=== PATIENT | female | born 1955 | race Caucasian/White ===

== ENCOUNTER 2024-01-01 13:14 | Observation (INO) ==
--- NOTE | 2024-01-01 13:18 | Emergency Department Note ---
Impression & Plan Unresponsive episode, Hyperkalemia, UTI (urinary tract infection), UGO (acute kidney injury), Overdose ED Provider Note NAME: [id number] AGE: 67 SEX: F : ARRIVES VIA: Ambulance INFORMANT: [Patient][, ] ED PROVIDER(S): [Ricardo Montaño MD] CHIEF COMPLAINT: Unresponsiveness MEDICAL DECISION MAKING: Patient presented due to concern for episode of unresponsiveness. Code stroke alert was initiated to facilitate imaging. Patient will open eyes to voice and to tactile stimuli. The patient does move all 4 extremities but weakly. No obvious focal deficits. Work with a white count of 16 with a normal H&H and platelet count. Hypercarbia noted with acidosis with VBG pH is 7.2. Initial [id number] does show a creat of 3 with a potassium of 6.2. The patient was ordered dextrose D50 and insulin duoneb and calcium. The patient was also ordered IV fluids. CT imaging shows no concerning findings in the neck. The patient does have focal moderate to severe stenosis of the distal left vert. This likely would not explain the reported left-sided symptoms. Patient does have some mild multifocal narrowing within the bilateral carotid siphons. CT of the head is negative for acute hemorrhage or infarct but there is a small age-indeterminate infarct in the left cerebellum. This may be subacute. Patient did complain of hip pain so x-ray was ordered. This is negative. The patient did have some decreased responsiveness repeat VBG and BMP ordered. The patient was ordered additional Narcan. No significant change to repeat doses ordered. I did rediscuss the patient's case with the on-call hospitalist who also did evaluate the patient. The patient did seem to have improvement with the additional Narcan the Narcan drip was to be ordered. Repeat VBG pH went from 7.22-7.21 pCO2 went from 57-60. Patient tolerating BiPAP. Patient's repeat BMP shows potassium of 4.5 creatinine went from 2.67-2.51. Urinalysis does show likelihood of infection. Patient is positive for opiates on UDS. I did have pharmacy review PDMP as well as for the [employer] system and no evidence of narcotics. Positive for methamphetamines but likely secondary to Wellbutrin use. Critical Care: I have personally spent 80 minutes of critical care time in direct management of this patient. This includes bedside care, interpretation of diagnostic studies, and testing, discussion with consultants, patient, and family members, and other require inpatient management activities. This 80 minutes is in excess of all separately billable procedures. Discussion w/ other healthcare providers: Dr. Kwon and LILLIANA Urbano PA-C inpatient medicine service Prior /Outside records reviewed: [none] Differential diagnosis: Infection, dehydration, metabolic abnormality, hypo/hyperglycemia, electrolyte imbalance, anemia, UTI, pneumonia, thyroid dysfunction among others were considered. Diagnostics, as interpreted by me: ECG: [none] Cardiac monitoring: An order was placed for continuous cardiac monitoring. The monitor shows a rate of [] with [] rhythm. [Patient was placed on pulse oximetry] Medical decision rules: [none] Imaging studies: [I informally interpreted the patient's CT head which does not show obvious ICH with formal report to follow.] I informally interpreted the patient's chest x-ray which does not show obvious pneumonia or pneumothorax HPI: I received a medical command called due to concern for strokelike symptoms prior to arrival. The patient reportedly became unresponsive but was noted to have pinpoint pupils and seem to respond with Narcan. Patient was made a stroke alert given that her symptoms are improving. BSG was in the 260s oxygen saturation 90% on room air heart rate not elevated blood pressure initially was noted to be low 80s over 30s but repeat was in the 160s. PAST MEDICAL HISTORY: [See Below] PAST SURGICAL HISTORY: Carotid stent placement SOCIAL HISTORY: smoker HOME MEDICATIONS: [See Below] ALLERGIES: [See Below] VITALS: [See Below] PHYSICAL EXAMINATION: GENERAL: NAD, non-toxic. EYE EXAM: Normal conjunctiva. PERRL, no anisocoria and EOM's grossly intact w/o pain. OROPHARYNX: Moist mucus membranes, grossly normal dentition. NECK: Trachea midline, no stridor. [Supple, no nuchal rigidity, no adenopathy, non-tender. No signs of meningismus. FROM of the neck with good chin to chest and neck extension.] LUNGS: Occasional wheezing noted. Normal chest wall mechanics. HEART: NSR, no MRG. ABDOMEN: Abdomen soft, non-tender, no masses, no rebound or guarding. BACK: No CVA TTP. SKIN: No rashes and no bruising. UPPER EXTREMITIES: Upper extremities are grossly normal. LOWER EXTREMITIES: Grossly normal, no edema. NEURO EXAM: Opens eyes to tactile stimuli, no obvious facial droop, deliberate speech noted. Weakness of all 4 extremities but grossly symmetric. 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 Past Med/Surg History Medical History (Updated 01/01/24 @ 18:04 by Ricardo Montaño MD) Hypertension HLD (hyperlipidemia) Depression Tobacco abuse Social History (Updated 01/01/24 @ 18:04 by Ricardo Montaño MD) Smoking Status: Current every day smoker Preferred Language: Danish Allergies Allergies Allergy/AdvReac Type Severity Reaction Status Date / Time No Known Allergies Allergy Unverified 01/01/24 15:25 Home Meds Home Medications Medication Instructions Recorded Confirmed amlodipine 5 mg tablet 5 mg PO QAM 01/01/24 01/01/24 aspirin 81 mg tablet,delayed 81 mg PO DAILY 01/01/24 01/01/24 release atorvastatin 20 mg tablet 20 mg PO DAILY 01/01/24 01/01/24 baclofen 10 mg tablet 10 mg PO BID 01/01/24 01/01/24 bupropion HCl 200 mg tablet,12 hr 200 mg PO BID 01/01/24 01/01/24 sustained-release cholecalciferol (vitamin D3) 125 125 mcg PO DAILY 01/01/24 01/01/24 mcg (5,000 unit) capsule clopidogrel 75 mg tablet 75 mg PO DAILY 01/01/24 01/01/24 diclofenac sodium 75 mg 75 mg PO BID 01/01/24 01/01/24 tablet,delayed release duloxetine 30 mg capsule,delayed 30 mg PO DAILY 01/01/24 01/01/24 release duloxetine 60 mg capsule,delayed 60 mg PO DAILY 01/01/24 01/01/24 release ezetimibe 10 mg tablet 10 mg PO DAILY 01/01/24 01/01/24 fluticasone propionate 50 2 spray intranasal DAILY 01/01/24 01/01/24 mcg/actuation nasal spray,suspension gabapentin 800 mg tablet 800 mg PO QID 01/01/24 01/01/24 gemfibrozil 600 mg tablet 600 mg PO BID 01/01/24 01/01/24 ipratropium 20 mcg-albuterol 100 1 puff inhalation QID PRN 01/01/24 01/01/24 mcg/actuation mist for inhalation Shortness Of Breath Or Wheezing (Combivent Respimat) lisinopril 5 mg tablet 5 mg PO DAILY 01/01/24 01/01/24 mirtazapine 15 mg tablet 15 mg PO HS 01/01/24 01/01/24 oxybutynin chloride 5 mg tablet 5 mg PO BID 01/01/24 01/01/24 pantoprazole 40 mg tablet,delayed 40 mg PO DAILY 01/01/24 01/01/24 release potassium chloride 20 mEq 20 meq PO BID 01/01/24 01/01/24 tablet,extended release(part/cryst) risperidone 2 mg tablet 2 mg PO QPM 01/01/24 01/01/24 ropinirole 0.5 mg tablet 0.5 mg PO HS 01/01/24 01/01/24 sucralfate 1 gram tablet 1 g PO QID PRN ABD DISCOMFORT 01/01/24 01/01/24 Results & Data (ED) Vital Signs Vital Signs - 24 hr 01/01/24 13:07 01/01/24 13:33 01/01/24 13:37 Temperature 35.2 C L Temperature Source Rectal Pulse Rate 81 79 82 Pulse Rate [Apical] Pulse Rate from SpO2 Sensor Respiratory Rate 22 20 Respiratory Effort / Characteristics Non-Labored Spontaneous Accessory Muscle Use Respiratory Depth Shallow Respiratory Pattern Blood Pressure 153/45 H 145/69 H Blood Pressure [Left Arm] Blood Pressure Mean 81 94 Blood Pressure Mean [Left Arm] Pulse Oximetry 94 95 Oxygen Delivery Method Nasal Cannula Nasal Cannula Oxygen Flow Rate 1 1 Fraction of Inspired Oxygen SaO2/FiO2 Ratio Sepsis Recent Fever Within 48 Hours No Sepsis New/Unexplained Change in Mental Status Yes Sepsis Action Taken by Nursing Physician Notified 01/01/24 14:00 01/01/24 14:23 01/01/24 14:23 Temperature Temperature Source Pulse Rate 78 74 Pulse Rate [Apical] 74 Pulse Rate from SpO2 Sensor Respiratory Rate 26 H 16 16 Respiratory Effort / Characteristics Non-Labored Spontaneous Non-Labored Spontaneous Respiratory Depth Normal Respiratory Pattern Regular Blood Pressure 130/98 Blood Pressure [Left Arm] Blood Pressure Mean 108 Blood Pressure Mean [Left Arm] Pulse Oximetry 99 99 99 Oxygen Delivery Method Nasal Cannula BiPAP Oxygen Flow Rate 2 Fraction of Inspired Oxygen 30 30 SaO2/FiO2 Ratio Sepsis Recent Fever Within 48 Hours Sepsis New/Unexplained Change in Mental Status Sepsis Action Taken by Nursing 01/01/24 14:30 01/01/24 15:00 01/01/24 15:26 Temperature 35.2 C L Temperature Source Pulse Rate 82 Pulse Rate [Apical] Pulse Rate from SpO2 Sensor 82 81 Respiratory Rate 15 Respiratory Effort / Characteristics Respiratory Depth Respiratory Pattern Blood Pressure 155/110 H 147/107 H Blood Pressure [Left Arm] Blood Pressure Mean 125 120 Blood Pressure Mean [Left Arm] Pulse Oximetry 100 97 100 Oxygen Delivery Method CPAP BiPAP BiPAP Oxygen Flow Rate Fraction of Inspired Oxygen 30 30 30 SaO2/FiO2 Ratio Sepsis Recent Fever Within 48 Hours Sepsis New/Unexplained Change in Mental Status Sepsis Action Taken by Nursing 01/01/24 15:30 01/01/24 16:00 01/01/24 16:15 Temperature 35.5 C L 35.7 C L Temperature Source Pulse Rate 82 82 80 Pulse Rate [Apical] Pulse Rate from SpO2 Sensor 83 81 Respiratory Rate 13 21 23 Respiratory Effort / Characteristics Respiratory Depth Normal Respiratory Pattern Regular Blood Pressure 156/94 H 119/77 Blood Pressure [Left Arm] Blood Pressure Mean 114 91 Blood Pressure Mean [Left Arm] Pulse Oximetry 100 100 97 Oxygen Delivery Method BiPAP BiPAP Oxygen Flow Rate Fraction of Inspired Oxygen 30 25 25 SaO2/FiO2 Ratio Sepsis Recent Fever Within 48 Hours Sepsis New/Unexplained Change in Mental Status Sepsis Action Taken by Nursing 01/01/24 16:15 01/01/24 16:30 01/01/24 17:00 Temperature 35.8 C L 35.9 C L 36.3 C L Temperature Source Bonner Cath ( Temp Sensing) Pulse Rate 81 88 Pulse Rate [Apical] 86 Pulse Rate from SpO2 Sensor 81 88 Respiratory Rate 12 14 15 Respiratory Effort / Characteristics Non-Labored Spontaneous Respiratory Depth Normal Respiratory Pattern Regular Blood Pressure 137/73 124/71 Blood Pressure [Left Arm] 107/73 Blood Pressure Mean 94 88 Blood Pressure Mean [Left Arm] 84 Pulse Oximetry 99 97 96 Oxygen Delivery Method BiPAP BiPAP BiPAP Oxygen Flow Rate Fraction of Inspired Oxygen 25 25 25 SaO2/FiO2 Ratio 384 Sepsis Recent Fever Within 48 Hours Sepsis New/Unexplained Change in Mental Status Sepsis Action Taken by Nursing 01/01/24 17:05 01/01/24 17:15 01/01/24 17:20 Temperature 36.5 C Temperature Source Pulse Rate 83 83 Pulse Rate [Apical] Pulse Rate from SpO2 Sensor 83 Respiratory Rate 12 Respiratory Effort / Characteristics Respiratory Depth Respiratory Pattern Blood Pressure 112/63 Blood Pressure [Left Arm] Blood Pressure Mean 79 Blood Pressure Mean [Left Arm] Pulse Oximetry 96 Oxygen Delivery Method BiPAP Oxygen Flow Rate Fraction of Inspired Oxygen 25 25 SaO2/FiO2 Ratio Sepsis Recent Fever Within 48 Hours Sepsis New/Unexplained Change in Mental Status Sepsis Action Taken by Nursing 01/01/24 17:30 01/01/24 17:45 Temperature 36.6 C 36.8 C Temperature Source Pulse Rate 84 83 Pulse Rate [Apical] Pulse Rate from SpO2 Sensor 84 83 Respiratory Rate 13 12 Respiratory Effort / Characteristics Respiratory Depth Respiratory Pattern Blood Pressure 99/70 L 108/70 Blood Pressure [Left Arm] Blood Pressure Mean 79 82 Blood Pressure Mean [Left Arm] Pulse Oximetry 96 95 Oxygen Delivery Method BiPAP Oxygen Flow Rate Fraction of Inspired Oxygen 25 25 SaO2/FiO2 Ratio Sepsis Recent Fever Within 48 Hours Sepsis New/Unexplained Change in Mental Status Sepsis Action Taken by [facility] Medications Current Medication List: was personally reviewed by me Laboratory Data Attestation: I reviewed the patient's lab results. 01/01/24 13:29 01/01/24 15:23 Lab Results 01/01/24 01/01/24 01/01/24 Range/Units 13:27 13:29 13:36 WBC 16.72 H (4.8-10.8) K/ul RBC 4.23 (4.20-5.40) M/uL Hgb 13.2 (12.0-16.0) g/dl POC Hgb (12.0-16.0) g/dl Hct 40.7 (37.0-47.0) % POC Hct (37-47) % MCV 96.2 (80.0-100.0) fL MCH 31.2 (25.0-34.0) pg MCHC 32.4 (32.0-36.0) g/dL RDW Std Deviation 44.7 (36.4-46.3) fL RDW Coeff of Aishwarya 12.7 (11.5-14.5) % Plt Count 331 (130-400) K/uL MPV 11.5 (9.4-12.4) fL Immature Gran % (Auto) 0.5 % Neut % (Auto) 89.4 % Lymph % (Auto) 4.2 % [place] % (Auto) 5.4 % Eos % (Auto) 0.1 % Baso % (Auto) 0.4 % Neut # (Auto) 14.93 H (1.40-6.50) K/uL Lymph # (Auto) 0.71 L (1.20-3.40) K/uL [place] # (Auto) 0.91 H (0.11-0.59) K/uL Eos # (Auto) 0.02 (0.00-0.50) K/uL Baso # (Auto) 0.07 (0.00-0.20) K/uL Immature Gran # (Auto) 0.08 (0.01-0.20) K/uL PT 10.7 (9.0-12.0) Seconds INR 1.0 (0.9-1.1) APTT 27 (21-31) Seconds PTT Ratio 1.0 POC pH (7.35-7.45) POC pCO2 (35-46) mmHg POC pO2 (80-95) mmHg POC HCO3 (19-24) kelvin/L POC Base Excess (-9-1.8) kelvin/L POC ABG O2 Sat (90-95) % VBG pH 7.22 L (7.36-7.41) VBG pCO2 57 H (38-50) mmHg VBG pO2 37 mmHg VBG HCO3 23 mmol/L VBG O2 Saturation 69.0 % VBG Base Excess -5.1 mEq/L POC Sodium (135-144) mmol/L Sodium 130 L (136-145) mmol/L POC Potassium (3.3-5.0) mmol/L Potassium 6.1 H* (3.5-5.1) mmol/L POC Chloride (101-112) mmol/L Chloride 100 (98-107) mmol/L Carbon Dioxide 23 (21-32) mmol/L POC Total CO2 (24-31) mmol/L Anion Gap 7 (3-11) POC Anion Gap (16-25) mmol/L POC BUN (7-18) mg/dl BUN 31 H (6-23) mg/dl Creatinine 2.67 H (0.6-1.2) mg/dl POC Creatinine (0.6-1.3) mg/dl Est Cr Clr Drug Dosing 23.3 ml/min Est GFR ( Amer) 20.7 ml/min Est GFR (Non-Af Amer) 17.9 ml/min BUN/Creatinine Ratio 11.6 (10-20) Glucose 212 H (70-99(Fasting)) mg/dl POC Glucose 202 H (70-99) mg/dl POC Glucose (other) (70-99) mg/dl Lactate (0.4-2.0) mmol/L Calcium 8.6 (8.6-10.3) mg/dl POC Ioniz Calcium Oswald (1.12-1.32) mmol/l Magnesium 1.9 (1.7-2.4) mg/dl Total Bilirubin 0.3 (0.2-1.0) mg/dl AST 60 H (13-39) U/L ALT 24 (7-52) U/L Alkaline Phosphatase 90 (34-104) U/L Ammonia 26.0 (18-72) umol/L Troponin I High Sens 2.8 (0-14) pg/ml Total Protein 5.9 L (6.0-8.3) gm/dl Albumin 4.2 (3.4-5.0) gm/dl Globulin 1.7 L (2.5-4.0) gm/dl Albumin/Globulin Ratio 2.5 H (0.9-2) Procalcitonin (0-0.5) ng/ml Urine Color Urine Appearance (Clear) Urine pH (4.5-7.5) Ur Specific [place] (1.000-1.030) Urine Protein (Negative) Urine Glucose (UA) (Negative) Urine Ketones (Negative) Urine Blood (Negative) Urine Nitrite (Negative) Urine Bilirubin (Negative) Urine Urobilinogen (Negative) Ur Leukocyte Esterase (Negative) Urine WBC (Auto) (0-5) /hpf Urine RBC (Auto) (0-4) /hpf U Hyaline Cast (Auto) (0-5) /lpf U Epithel Cells (Auto) (0-5) /lpf Urine Bacteria (Auto) (Negative) Urine Opiates Screen (Neg) Ur Methadone, Qual (Neg) Urine Barbiturates (Neg) Ur Phencyclidine (PCP) (Neg) U Amphetamin/Meth Scrn (Neg) MDMA (Ecstasy) Screen (Neg) U Benzodiazepines Scrn (Neg) Ur Cocaine Metabolite (Neg) U Marijuana (THC) Screen (Neg) 01/31/24 01/31/24 01/31/24 Range/Units 13:41 14:13 14:45 WBC (4.8-10.8) K/ul RBC (4.20-5.40) M/uL Hgb (12.0-16.0) g/dl POC Hgb 13.6 (12.0-16.0) g/dl Hct (37.0-47.0) % POC Hct 40 (37-47) % MCV (80.0-100.0) fL MCH (25.0-34.0) pg MCHC (32.0-36.0) g/dL RDW Std Deviation (36.4-46.3) fL RDW Coeff of Aishwarya (11.5-14.5) % Plt Count (130-400) K/uL MPV (9.4-12.4) fL Immature Gran % (Auto) % Neut % (Auto) % Lymph % (Auto) % [place] % (Auto) % Eos % (Auto) % Baso % (Auto) % Neut # (Auto) (1.40-6.50) K/uL Lymph # (Auto) (1.20-3.40) K/uL [place] # (Auto) (0.11-0.59) K/uL Eos # (Auto) (0.00-0.50) K/uL Baso # (Auto) (0.00-0.20) K/uL Immature Gran # (Auto) (0.01-0.20) K/uL PT (9.0-12.0) Seconds INR (0.9-1.1) APTT (21-31) Seconds PTT Ratio POC pH (7.35-7.45) POC pCO2 (35-46) mmHg POC pO2 (80-95) mmHg POC HCO3 (19-24) kelvin/L POC Base Excess (-9-1.8) kelvin/L POC ABG O2 Sat (90-95) % VBG pH (7.36-7.41) VBG pCO2 (38-50) mmHg VBG pO2 mmHg VBG HCO3 mmol/L VBG O2 Saturation % VBG Base Excess mEq/L POC Sodium 133 L (135-144) mmol/L Sodium (136-145) mmol/L POC Potassium 6.2 H* (3.3-5.0) mmol/L Potassium (3.5-5.1) mmol/L POC Chloride 101 (101-112) mmol/L Chloride (98-107) mmol/L Carbon Dioxide (21-32) mmol/L POC Total CO2 23 L (24-31) mmol/L Anion Gap (3-11) POC Anion Gap 17.0 (16-25) mmol/L POC BUN 30 H (7-18) mg/dl BUN (6-23) mg/dl Creatinine (0.6-1.2) mg/dl POC Creatinine 3.1 H (0.6-1.3) mg/dl Est Cr Clr Drug Dosing ml/min Est GFR ( Amer) ml/min Est GFR (Non-Af Amer) ml/min BUN/Creatinine Ratio (10-20) Glucose (70-99(Fasting)) mg/dl POC Glucose 263 H (70-99) mg/dl POC Glucose (other) 204 H (70-99) mg/dl Lactate 1.6 (0.4-2.0) mmol/L Calcium (8.6-10.3) mg/dl POC Ioniz Calcium [place] 1.13 (1.12-1.32) mmol/l Magnesium (1.7-2.4) mg/dl Total Bilirubin (0.2-1.0) mg/dl AST (13-39) U/L ALT (7-52) U/L Alkaline Phosphatase (34-104) U/L Ammonia (18-72) umol/L Troponin I High Sens (0-14) pg/ml Total Protein (6.0-8.3) gm/dl Albumin (3.4-5.0) gm/dl Globulin (2.5-4.0) gm/dl Albumin/Globulin Ratio (0.9-2) Procalcitonin (0-0.5) ng/ml Urine Color Yellow Urine Appearance Cloudy A (Clear) Urine pH 5.5 (4.5-7.5) Ur Specific [place] 1.019 (1.000-1.030) Urine Protein 1+ H (Negative) Urine Glucose (UA) Trace H (Negative) Urine Ketones Negative (Negative) Urine Blood 3+ H (Negative) Urine Nitrite Positive A (Negative) Urine Bilirubin Negative (Negative) Urine Urobilinogen Negative (Negative) Ur Leukocyte Esterase 2+ H (Negative) Urine WBC (Auto) >30 H (0-5) /hpf Urine RBC (Auto) 0-4 (0-4) /hpf U Hyaline Cast (Auto) 5-10 H (0-5) /lpf U Epithel Cells (Auto) 0-5 (0-5) /lpf Urine Bacteria (Auto) 3+ H (Negative) Urine Opiates Screen Pos H (Neg) Ur Methadone, Qual Neg (Neg) Urine Barbiturates Neg (Neg) Ur Phencyclidine (PCP) Neg (Neg) U Amphetamin/Meth Scrn Neg (Neg) MDMA (Ecstasy) Screen Pos H (Neg) U Benzodiazepines Scrn Neg (Neg) Ur Cocaine Metabolite Neg (Neg) U Marijuana (THC) Screen Neg (Neg) 01/01/24 01/01/24 01/01/24 Range/Units 15:23 16:02 16:58 WBC (4.8-10.8) K/ul RBC (4.20-5.40) M/uL Hgb (12.0-16.0) g/dl POC Hgb 13.9 (12.0-16.0) g/dl Hct (37.0-47.0) % POC Hct 41 (37-47) % MCV (80.0-100.0) fL MCH (25.0-34.0) pg MCHC (32.0-36.0) g/dL RDW Std Deviation (36.4-46.3) fL RDW Coeff of Aishwarya (11.5-14.5) % Plt Count (130-400) K/uL MPV (9.4-12.4) fL Immature Gran % (Auto) % Neut % (Auto) % Lymph % (Auto) % [place] % (Auto) % Eos % (Auto) % Baso % (Auto) % Neut # (Auto) (1.40-6.50) K/uL Lymph # (Auto) (1.20-3.40) K/uL [place] # (Auto) (0.11-0.59) K/uL Eos # (Auto) (0.00-0.50) K/uL Baso # (Auto) (0.00-0.20) K/uL Immature Gran # (Auto) (0.01-0.20) K/uL PT (9.0-12.0) Seconds INR (0.9-1.1) APTT (21-31) Seconds PTT Ratio POC pH 7.24 L (7.35-7.45) POC pCO2 49 H (35-46) mmHg POC pO2 38 L (80-95) mmHg POC HCO3 21 (19-24) kelvin/L POC Base Excess -6.0 (-9-1.8) kelvin/L POC ABG O2 Sat 62.0 L (90-95) % VBG pH 7.21 L (7.36-7.41) VBG pCO2 60 H (38-50) mmHg VBG pO2 43 mmHg VBG HCO3 24 mmol/L VBG O2 Saturation 68.0 % VBG Base Excess -4.8 mEq/L POC Sodium 135 (135-144) mmol/L Sodium 134 L (136-145) mmol/L POC Potassium 4.8 (3.3-5.0) mmol/L Potassium 4.5 D (3.5-5.1) mmol/L POC Chloride (101-112) mmol/L Chloride 103 (98-107) mmol/L Carbon Dioxide 23 (21-32) mmol/L POC Total CO2 22 L (24-31) mmol/L Anion Gap 8 (3-11) POC Anion Gap (16-25) mmol/L POC BUN (7-18) mg/dl BUN 30 H (6-23) mg/dl Creatinine 2.51 H (0.6-1.2) mg/dl POC Creatinine (0.6-1.3) mg/dl Est Cr Clr Drug Dosing 25.1 ml/min Est GFR ( Amer) 22.5 ml/min Est GFR (Non-Af Amer) 19.4 ml/min BUN/Creatinine Ratio 12.0 (10-20) Glucose 204 H (70-99(Fasting)) mg/dl POC Glucose 181 H (70-99) mg/dl POC Glucose (other) (70-99) mg/dl Lactate (0.4-2.0) mmol/L Calcium 8.9 (8.6-10.3) mg/dl POC Ioniz Calcium [place] (1.12-1.32) mmol/l Magnesium (1.7-2.4) mg/dl Total Bilirubin (0.2-1.0) mg/dl AST (13-39) U/L ALT (7-52) U/L Alkaline Phosphatase (34-104) U/L Ammonia (18-72) umol/L Troponin I High Sens (0-14) pg/ml Total Protein (6.0-8.3) gm/dl Albumin (3.4-5.0) gm/dl Globulin (2.5-4.0) gm/dl Albumin/Globulin Ratio (0.9-2) Procalcitonin 0.37 (0-0.5) ng/ml Urine Color Urine Appearance (Clear) Urine pH (4.5-7.5) Ur Specific [place] (1.000-1.030) Urine Protein (Negative) Urine Glucose (UA) (Negative) Urine Ketones (Negative) Urine Blood (Negative) Urine Nitrite (Negative) Urine Bilirubin (Negative) Urine Urobilinogen (Negative) Ur Leukocyte Esterase (Negative) Urine WBC (Auto) (0-5) /hpf Urine RBC (Auto) (0-4) /hpf U Hyaline Cast (Auto) (0-5) /lpf U Epithel Cells (Auto) (0-5) /lpf Urine Bacteria (Auto) (Negative) Urine Opiates Screen (Neg) Ur Methadone, Qual (Neg) Urine Barbiturates (Neg) Ur Phencyclidine (PCP) (Neg) U Amphetamin/Meth Scrn (Neg) MDMA (Ecstasy) Screen (Neg) U Benzodiazepines Scrn (Neg) Ur Cocaine Metabolite (Neg) U Marijuana (THC) Screen (Neg) Administered Medications Aspirin (Aspirin 300 Mg Supp) 300 mg FL ONE ONE Stop: 01/01/24 17:46 Last Admin: 01/01/24 17:47 Dose: 300 mg Documented By: CHEY Naloxone HCl 5 mg/ Sodium (Chloride) 100 mls @ 20 mls/hr IV .Q5H VIANEY; Protocol Stop: 01/31/24 16:59 Last Admin: 01/01/24 17:25 Dose: 1 mg/hr, 20 mls/hr Documented By: CHEY Co-signed By: CAW Discontinued Medications Albuterol (Albut/Ipratrop 3mg/0.5mg Neb 3 Ml Vial) 12 ml NEB ONE ONE; Protocol Stop: 01/01/24 13:57 Last Admin: 01/01/24 14:20 Dose: 12 ml Documented By: ALYSSA Dextrose (Dextrose 50% 50 Ml Syringe) 50 ml IV NOW STA Stop: 01/01/24 13:57 Last Admin: 01/01/24 14:12 Dose: 50 ml Documented By: ALYSSA Sodium Chloride (Nss) 1,000 mls @ 999 mls/hr IV .Q1H1M ONE Stop: 01/01/24 14:56 Last Infusion: 01/01/24 15:20 Dose: Infused Documented By: Admin: 01/01/24 14:19 Dose: 999 mls/hr Documented By: ALYSSA Calcium Gluconate () 1,000 mg in 60 mls @ 240 mls/hr IV NOW STA Stop: 01/01/24 14:10 Last Infusion: 01/01/24 14:30 Dose: Infused Documented By: Admin: 01/01/24 14:12 Dose: 240 mls/hr Documented By: ALYSSA Piperacillin Sod/Tazobactam Sod (Zosyn) 4.5 gm in 100 mls @ 200 mls/hr IV NOW ONE Stop: 01/01/24 17:14 Last Infusion: 01/01/24 17:22 Dose: Infused Documented By: Admin: 01/01/24 16:52 Dose: 200 mls/hr Documented By: CHEY Insulin Human Regular (Novolin-R Insulin Per Unit Charge) 10 units IV NOW STA Stop: 01/01/24 13:57 Last Admin: 01/01/24 14:13 Dose: 10 units Documented By: ALYSSA Co-signed By: ALEXANDRA Ioversol (Optiray 320 125ml) 117 ml IV ONCE ONE Stop: 01/01/24 13:26 Last Admin: 01/01/24 13:26 Dose: 117 ml Documented By: CAREY Naloxone HCl (Naloxone Hcl 0.4 Mg/1 Ml Vial/Carp) 0.4 mg IV NOW STA Stop: 01/01/24 15:54 Last Admin: 01/01/24 15:56 Dose: 0.4 mg Documented By: CHEY Naloxone HCl (Naloxone Hcl 0.4 Mg/1 Ml Vial/Carp) 0.4 mg IV NOW STA Stop: 01/01/24 16:03 Last Admin: 01/01/24 16:10 Dose: 0.4 mg Documented By: CHEY Imaging Data Radiologist's Impression: Head CT 01/01/24 13:09 CT SCAN OF THE BRAIN WITHOUT IV CONTRAST CLINICAL HISTORY: Neurological deficit. Stroke like symptoms. COMPARISON STUDY: No priors. TECHNIQUE: Unenhanced axial CT scan of the brain is performed from the vertex to the skull base. A dose lowering technique was utilized adhering to the principles of ALARA. FINDINGS: Brain parenchyma: There is mild microangiopathic change. There is a small and age-indeterminate infarct in the left cerebellar hemisphere seen on axial image #7. There is no hemorrhage, mass effect, or evidence of acute territorial ischemia by CT criteria. Khanna-white matter differentiation is preserved. No extra-axial fluid collection is seen. Ventricles, sulci, cisterns: Normal in configuration. Intracranial vasculature: There is atherosclerotic calcification of the cavernous carotid and vertebral arteries. Calvarium: Unremarkable. Sinuses and mastoids: The visualized paranasal sinuses are clear. The mastoid air cells are well pneumatized. Orbits: The bony orbits are grossly intact. There are bilateral ocular lens implants. IMPRESSION: 1. There is no hemorrhage, mass effect, or evidence of acute territorial ischemia by CT criteria. 2. There is a small age indeterminate infarct in the left cerebellar hemisphere. This may be subacute. Consider MRI for further assessment. ACT 112: Negative or not required by law. Electronically signed by: Alfred Simeon M.D. 01/01/2024 1:33 PM Head CTA 01/01/24 13:09 HEAD CTA HISTORY: neuro deficit, acute stroke suspected TECHNIQUE: Multiaxial CT images of the head were performed both before and after the intravenous administration of contrast to evaluate the major cerebral vessels. 3D/MIP images were also obtained. Sagittal and coronal reformats were reviewed. A dose lowering technique was utilized adhering to the principles of ALARA. COMPARISON: None. FINDINGS: Partially visualized right nasopharyngeal airway. Small hypodense focus in mild to moderate calcified plaque within the bilateral carotid siphons. This results in mild multifocal narrowing within the carotid siphons. There is a hypoplastic distal left vertebral artery with focal moderate to severe stenosis due to the calcified plaque. This is best seen on image 32. The basilar artery is patent. Within the left cerebellar hemisphere are noted. These are consistent with age indeterminate lacunar infarcts. There is no significant stenosis, occlusion, or aneurysm seen within the bilateral ACAs, MCAs, or facilities officer. IMPRESSION: 1. No significant stenosis, occlusion, or aneurysm within the [place]. 2. Mild multifocal narrowing within the bilateral carotid siphons due to the calcified plaque. 2. Focal moderate to severe stenosis within the distal left vertebral artery due to calcified plaque. ACT 112: Negative or not required by law. Electronically signed by: Laith Madesn M.D. 01/01/2024 1:37 PM Neck CTA 01/01/24 13:09 CT angio neck with con CLINICAL HISTORY: neuro deficit, acute stroke suspected TECHNIQUE: CT angiography of the neck was performed following intravenous administration of iodinated contrast. Coronal and sagittal MIPS were obtained from the axial data set and were submitted for review. Automated dose lowering techniques and/or adjustment according to patient size were utilized for this examination. All measurements were calculated based on NASCET criteria. Comparison: None available at the time of this dictation. FINDINGS: Small thyroid nodules are seen which do not require follow-up by ACR criteria. Interstitial thickening is in the lungs. CTA Neck: Stents are seen near the origin of the left subclavian and common carotid origins. Postsurgical changes are seen about the left carotid bifurcation. The common carotid, external carotid, cervical segments of the internal carotid arteries, and the cervical segments of the vertebral arteries are patent without hemodynamically significant stenosis. The right vertebral artery is dominant. IMPRESSION: No occlusion, hemodynamically significant stenosis, or dissection in the major cervical arteries. Assessment of stenosis of the internal carotid arteries is based on NASCET criteria. ACT 112: Negative or not required by law. Electronically signed by: Vini Ennis M.D. 01/01/2024 1:38 PM Chest X-Ray 01/01/24 13:33 XR chest 1V portable HISTORY: Shortness of breath. COMPARISON: None. FINDINGS: There are low lung volumes. No pneumothorax. No pleural effusions. The heart is normal in size. No focal lung consolidations to suggest a pneumonia. No evidence for pulmonary edema. Mild interstitial thickening. No acute fractures identified. A left carotid/subclavian artery stents are noted. A few bibasilar linear densities favor subsegmental atelectasis or scarring. Otherwise, no focal lung consolidations. IMPRESSION: Mild interstitial thickening. This could be chronic. Mild congestive change could also have a similar appearance. ACT 112: Negative or not required by law. Electronically signed by: Laith Madsen M.D. 01/01/2024 2:46 PM Hip/Pelvis X-Ray 01/01/24 14:08 SINGLE VIEW PELVIS; 2 VIEWS RIGHT HIP CLINICAL HISTORY: Right hip pain. FINDINGS: An AP view of the pelvis with AP and frog-leg views of the right hip are obtained. No prior studies are available for comparison at the time of dictation. The skeletal structures are osteopenic. There is no radiographic evidence of acute fracture involving the hips or bony pelvis. 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 There is degenerative sclerosis of the sacroiliac joints. Lumbosacral spondylosis is partially imaged. The bladder is distended and filled with excreted IV contrast. Left iliac stents are in place. The overlying soft tissues are normal as imaged. IMPRESSION: No acute bony abnormality is identified. Electronically signed by: Alfred Simeon M.D. 01/01/2024 2:44 PM Discharge Plan Visit Data Chief Complaint: Stroke Alert ED Provider: Ricardo Montaño Discharge Problem: Unresponsive episode, Hyperkalemia, UTI (urinary tract infection), UGO (acute kidney injury), Overdose Forms Stand Alone Forms: My [facility] Prescriptions Prescriptions: No Action atorvastatin 20 mg tablet 20 mg PO DAILY sucralfate 1 gram tablet 1 g PO QID PRN (Reason: ABD DISCOMFORT) clopidogrel 75 mg tablet 75 mg PO DAILY amlodipine 5 mg tablet 5 mg PO QAM aspirin 81 mg tablet,delayed release (DR/EC) 81 mg PO DAILY risperidone 2 mg tablet 2 mg PO QPM potassium chloride 20 mEq tablet,ER particles/crystals 20 meq PO BID gabapentin 800 mg tablet 800 mg PO QID baclofen 10 mg tablet 10 mg PO BID gemfibrozil 600 mg tablet 600 mg PO BID pantoprazole 40 mg tablet,delayed release (DR/EC) 40 mg PO DAILY ropinirole 0.5 mg tablet 0.5 mg PO HS diclofenac sodium 75 mg tablet,delayed release (DR/EC) 75 mg PO BID lisinopril 5 mg tablet 5 mg PO DAILY mirtazapine 15 mg tablet 15 mg PO HS oxybutynin chloride 5 mg tablet 5 mg PO BID fluticasone propionate 50 mcg/actuation spray,suspension 2 spray INTRANASAL DAILY cholecalciferol (vitamin D3) 125 mcg (5,000 unit) capsule 125 mcg PO DAILY bupropion HCl 200 mg tablet sustained-release 12 hr 200 mg PO BID ezetimibe 10 mg tablet 10 mg PO DAILY duloxetine 30 mg capsule,delayed release(DR/EC) 30 mg PO DAILY Rx Instructions: TOTAL DOSE 90 MG--TAKES WITH 60 MG CAP. duloxetine 60 mg capsule,delayed release(DR/EC) 60 mg PO DAILY Rx Instructions: TOTAL DOSE 90 MG--TAKES WITH 30 MG CAP. Combivent Respimat 20-100 mcg/actuation mist 1 puff INHALATION QID PRN (Reason: Shortness Of Breath Or Wheezing) Discharge Problem: UTI (urinary tract infection) Qualifiers: Urinary tract infection type: site unspecified Hematuria presence: with hematuria Qualified Code(s): N39.0 - Urinary tract infection, site not specified ; R31.9 - Hematuria, unspecified Overdose Qualifiers: Encounter type: initial encounter Injury intent: undetermined intent Qualified Code(s): T50.904A - Poisoning by unspecified drugs, medicaments and biological substances, undetermined, initial encounter
[2024-01-01] MEDS ORDERED: OPTIRAY 320 125ml IV ONE (13:25)
--- NOTE | 2024-01-01 13:34 | CT Scan Report ---
CT SCAN OF THE BRAIN WITHOUT IV CONTRAST CLINICAL HISTORY: Neurological deficit. Stroke like symptoms. COMPARISON STUDY: No priors. TECHNIQUE: Unenhanced axial CT scan of the brain is performed from the vertex to the skull base. A d ose lowering technique was utilized adhering to the principles of ALARA. FINDINGS: Brain parenchyma: There is mild microangiopathic change. There is a small and age-indeterminate infar ct in the left cerebellar hemisphere seen on axial image #7. There is no hemorrhage, mass effect, or evidence of acute territorial ischemia by CT criteria. Khanna-white matter differentiation is preserved . No extra-axial fluid collection is seen. Ventricles, sulci, cisterns: Normal in configuration. Intracranial vasculature: There is atherosclerotic calcification of the cavernous carotid and vertebr al arteries. Calvarium: Unremarkable. Sinuses and mastoids: The visualized paranasal sinuses are clear. The mastoid air cells are well pneu matized. Orbits: The bony orbits are grossly intact. There are bilateral ocular lens implants. IMPRESSION: 1. There is no hemorrhage, mass effect, or evidence of acute territorial ischemia by CT criteria. 2. There is a small age indeterminate infarct in the left cerebellar hemisphere. This may be subacute . Consider MRI for further assessment. ACT 112: Negative or not required by law. Electronically signed by: Alfred Simeon M.D. 01/01/2024 1:33 PM
--- NOTE | 2024-01-01 13:38 | CT Scan Report ---
HEAD CTA HISTORY: neuro deficit, acute stroke suspected TECHNIQUE: Multiaxial CT images of the head were performed both before and after the intravenous admi nistration of contrast to evaluate the major cerebral vessels. 3D/MIP images were also obtained. Sag ittal and coronal reformats were reviewed. A dose lowering technique was utilized adhering to the denise Lorenzo. COMPARISON: None. FINDINGS: Partially visualized right nasopharyngeal airway. Small hypodense focus in mild to moderate calcified plaque within the bilateral carotid siphons. This results in mild multifocal narrowing wit hin the carotid siphons. There is a hypoplastic distal left vertebral artery with focal moderate to s evere stenosis due to the calcified plaque. This is best seen on image 32. The basilar artery is smith nt. Within the left cerebellar hemisphere are noted. These are consistent with age indeterminate lacu bobbi infarcts. There is no significant stenosis, occlusion, or aneurysm seen within the bilateral ACAs , MCAs, or yield improvement engineer. IMPRESSION: 1. No significant stenosis, occlusion, or aneurysm within the [place]. 2. Mild multifocal narrowing within the bilateral carotid siphons due to the calcified plaque. 2. Focal moderate to severe stenosis within the distal left vertebral artery due to calcified plaque. ACT 112: Negative or not required by law. Electronically signed by: Laith Madsen M.D. 01/01/2024 1:37 PM
--- NOTE | 2024-01-01 13:39 | CT Scan Report ---
CT angio neck with con CLINICAL HISTORY: neuro deficit, acute stroke suspected TECHNIQUE: CT angiography of the neck was performed following intravenous administration of iodinated contrast. Coronal and sagittal MIPS were obtained from the axial data set and were submitted for rev iew. Automated dose lowering techniques and/or adjustment according to patient size were utilized fo r this examination. All measurements were calculated based on NASCET criteria. Comparison: None available at the time of this dictation. FINDINGS: Small thyroid nodules are seen which do not require follow-up by ACR criteria. Interstitial thickenin g is in the lungs. CTA Neck: Stents are seen near the origin of the left subclavian and common carotid origins. Postsur gical changes are seen about the left carotid bifurcation. The common carotid, external carotid, cerv ical segments of the internal carotid arteries, and the cervical segments of the vertebral arteries a re patent without hemodynamically significant stenosis. The right vertebral artery is dominant. IMPRESSION: No occlusion, hemodynamically significant stenosis, or dissection in the major cervical arteries. Assessment of stenosis of the internal carotid arteries is based on NASCET criteria. ACT 112: Negative or not required by law. Electronically signed by: Vini Ennis M.D. 01/01/2024 1:38 PM
[2024-01-01 13:51] LABS: Base Excess VBG -5.1 mEq/L; HCO3 VBG 23 mmol/L; PCO2 VBG 57 mmHg (38-50); PO2 VBG 37 mmHg; pH VBG 7.22 (7.36-7.41)
[2024-01-01 13:52] LABS: Basophils # (auto) 0.07 K/uL (0.00-0.20); Basophils % (auto) 0.4 %; Eosinophils # (auto) 0.02 K/uL (0.00-0.50); Eosinophils % (auto) 0.1 %; Hematocrit (blood only) 40.7 % (37.0-47.0); Hemoglobin 13.2 g/dl (12.0-16.0); Immature Granulocytes # (auto) 0.08 K/uL (0.01-0.20); Immature Granulocytes % (auto) 0.5 %; Lymphocytes # (auto) 0.71 K/uL (1.20-3.40); Lymphocytes % (auto) 4.2 %; Mean Corpuscular Hemoglobin 31.2 pg (25.0-34.0); Mean Corpuscular Hgb Conc 32.4 g/dL (32.0-36.0); Mean Corpuscular Volume 96.2 fL (80.0-100.0); Mean Platelet Volume 11.5 fL (9.4-12.4); Monocytes # (auto) 0.91 K/uL (0.11-0.59); Monocytes % (auto) 5.4 %; Neutrophils # (auto) 14.93 K/uL (1.40-6.50); Neutrophils % (auto) 89.4 %; Platelet Count 331 K/uL (130-400); RDW Coefficient of Variation 12.7 % (11.5-14.5); RDW Standard Deviation 44.7 fL (36.4-46.3); Red Blood Count 4.23 M/uL (4.20-5.40); White Blood Count 16.72 K/ul (4.8-10.8)
[2024-01-01 13:54] LABS: iSTAT Creatinine 3.1 mg/dl (0.6-1.3); iSTAT Hemoglobin 13.6 g/dl (12.0-16.0); iSTAT Ionized Calcium 1.13 mmol/l (1.12-1.32); iSTAT Potassium 6.2 mmol/L (3.3-5.0)
[2024-01-01] MEDS ORDERED: NovoLIN-R INSULIN PER UNIT CHARGE IV STA (13:56)
[2024-01-01] MEDS ORDERED: CALCIUM GLUCONATE 1,000 MG/60 ML BAG IV STA (13:56)
[2024-01-01] MEDS ORDERED: ALBUT/IPRATROP 3MG/0.5MG NEB 3 ML VIAL NEB ONE (13:56)
[2024-01-01] MEDS ORDERED: DEXTROSE 50% 50 ML SYRINGE IV STA (13:56)
[2024-01-01] MEDS ORDERED: SODIUM CHLORIDE 0.9% 1,000 ML IV ONE (13:56)
[2024-01-01 14:02] LABS: Partial Thromboplastin Time 27 Seconds (21-31); Prothrombin Time 10.7 Seconds (9.0-12.0)
[2024-01-01 14:32] LABS: Albumin Globulin Ratio 2.5 (0.9-2); Albumin Level 4.2 gm/dl (3.4-5.0); BUN Creatinine Ratio 11.6 (10-20); Bilirubin,Total 0.3 mg/dl (0.2-1.0); Calcium 8.6 mg/dl (8.6-10.3); Creatinine Clr Calc Pharmacy 23.3 ml/min; Est GFR (African American) 20.7 ml/min; Est GFR (Non-African American) 17.9 ml/min; Globulin 1.7 gm/dl (2.5-4.0); Magnesium 1.9 mg/dl (1.7-2.4); Potassium 6.1 mmol/L (3.5-5.1); Total Protein 5.9 gm/dl (6.0-8.3); Troponin I High Sensitivity 2.8 pg/ml (0-14)
--- NOTE | 2024-01-01 14:45 | XRay Report ---
SINGLE VIEW PELVIS; 2 VIEWS RIGHT HIP CLINICAL HISTORY: Right hip pain. FINDINGS: An AP view of the pelvis with AP and frog-leg views of the right hip are obtained. No prior studies are available for comparison at the time of dictation. The skeletal structures are osteopeni c. There is no radiographic evidence of acute fracture involving the hips or bony pelvis. Mild to mod erate osteoarthritic change is seen in the hips. There is degenerative sclerosis of the sacroiliac juan ints. Lumbosacral spondylosis is partially imaged. The bladder is distended and filled with excreted IV contrast. Left iliac stents are in place. The overlying soft tissues are normal as imaged. IMPRESSION: No acute bony abnormality is identified. Electronically signed by: Alfred Simeon M.D. 01/01/2024 2:44 PM
--- NOTE | 2024-01-01 14:47 | XRay Report ---
XR chest 1V portable HISTORY: Shortness of breath. COMPARISON: None. FINDINGS: There are low lung volumes. No pneumothorax. No pleural effusions. The heart is normal in s ize. No focal lung consolidations to suggest a pneumonia. No evidence for pulmonary edema. Mild inter stitial thickening. No acute fractures identified. A left carotid/subclavian artery stents are noted. A few bibasilar linear densities favor subsegmental atelectasis or scarring. Otherwise, no focal susu g consolidations. IMPRESSION: Mild interstitial thickening. This could be chronic. Mild congestive change could also have a similar appearance. ACT 112: Negative or not required by law. Electronically signed by: Laith Madsen M.D. 01/01/2024 2:46 PM
[2024-01-01 15:03] LABS: Appearance Urine Cloudy (Clear); Bacteria Urine Automated 3+ (Negative); Bilirubin Urine Negative (Negative); Blood Urine 3+ (Negative); Color Urine Yellow; Epithelial Cell Urine Auto 0-5 /lpf (0-5); Glucose Urine UA Trace (Negative); Ketones Urine Negative (Negative); Leukocyte Esterase Urine 2+ (Negative); Nitrite Urine Positive (Negative); Protein Urine 1+ (Negative); RBC Urine Automated 0-4 /hpf (0-4); Specific Gravity Urine 1.019 (1.000-1.030); Urobilinogen Urine Negative (Negative); WBC Urine Automated >30 /hpf (0-5); pH Urine 5.5 (4.5-7.5)
--- NOTE | 2024-01-01 15:07 | History & Physical Report ---
Date of Service January 01, 2024 Assessment & Plan (1) Unresponsive episode: Plan: Patient became unresponsive the morning of 01/01; EMS reported slight left facial droop; per , LKW 2200 on 12/31 Leukocytosis at 16.72 neutrophil predominance; patient is hypothermic at 35.2 C in the ED BiPAP initiated in the ED No prior records available at time of admission; unable to obtain records from [facility], as office was closed at time of admission Head CT revealed no hemorrhage, mass effect, or evidence of acute territorial ischemia; noted age-indeterminate left cerebellar hemisphere infarct (may be subacute) Head CTA noted mild multifocal narrowing within the bilateral carotid Neck CTA NAF CXR revealed interstitial thickening; ?Chronic KUB revealed nonobstructive bowel Hip and pelvic x-ray NAF VB.22/57/37/23 Trend VBG q2h while on BiPAP Follow-up AB.24/49/38/21 Brain MRI ordered, pending; patient will need to be off BiPAP for this to be done Glucose 202 on arrival Potassium 6.1 on arrival; trend Anion gap, lactate, procalcitonin, and acetaminophen/salicylate levels WNL Tox screen positive for opiates and MDMA (note: patient takes Wellbutrin) No opioids prescribed in her PMDP Patient was pending intubation due to GSC 7 despite Narcan being given via EMS; she then became fully responsive after Narcan 0.4 mg IV x 2 given in the ED IV Narcan drip started in the ED notes she does take muscle relaxants, and sometimes overdoes it Hx of depression, substance use, and potential suicidality ( is not sure) Strict n.p.o.; converted p.o. medications to IV where possible Aspirin 300 mg MT ordered; will need to continue if patient is unable to tolerate PO (patient has extensive history of PAD, stents) RASS q4h A.m. CBC, BMP (2) Hyperkalemia: Plan: K 6.1-->4.5 on arrival Calcium gluconate, insulin, D50, and albuterol given in the ED BUN 31, creatinine 2.67, EGFR 17.9 (no baseline) Bonner placed in the ED Trend BMP (3) UTI (urinary tract infection): Plan: UA positive on arrival; blood 3+, protein 1+, leukocyte esterase 2+ Urine culture ordered, pending Zosyn 4.5 g IV q8h Unclear if UGO or at baseline (4) Hypothermia: Plan: 35.2 C on arrival Garth dela cruz (5) Hyponatremia: Plan: Na 130-->134 on arrival Trend BMP (as above) (6) Tobacco abuse: Plan: Patient is a current everyday tobacco cigarette smoker; 2 PPD (7) Depression: Plan: Hold duloxetine while on BiPAP Hold Wellbutrin while on BiPAP Seizure precautions (8) HLD (hyperlipidemia): (9) Hypertension: Plan Disposition: Admit to PCU telemetry Full code Strict n.p.o. for now while on BiPAP; advance diet as tolerated VTE PPx: Heparin 5000u SQ q12h History of Present Illness Chief Complaint: Stroke alert, unresponsive Primary Care Provider: VIGNESH PCP Sweta is a 68-year-old female with unknown PMH (potentially: HTN, PAD, HLD, d epression, COPD, cirrhosis, muscle spasms, suicidality, substance use, and s/p stent placement in the legs, arms, and left carotid). Patient presented via EMS for unresponsiveness. reported LKW of 12/31/2023 at 2200. He reports that the patient woke up this morning, said she needed an ambulance, then went unresponsive. EMS noted a slight left-sided facial droop; both sides flaccid. Patient is unresponsive at time of admission; GCS 8. Patient's (Patrick) is present at the bedside and provides history. He reports that he dropped her off at the house last night at 2200 on 08/31, then stayed with his elderly parents for whom he is caring. He then returned to the house around noon on 01/01, and found his in the bedroom with slurred speech. He denies any facial droop at this time. He notes that her skin was cold and clammy, and that she was twitching. He is unsure if she took her regular medications. He denies any recent falls or traumas that he knows of. notes that she has a history of drug use and depression, and that she may have had a suicide attempts prior to their marriage in 2006. He also notes that she is a current, heavy every day tobacco cigarette smoker; 2 PPD.; 2 PPD. She has a history of extensive stent placement in her arms and legs, and required a stent for carotid stenosis 5 years ago at [facility]. She follows with [facility] for cardiology, and her PCP is Brigitte Aparicio in [facility]. denies that she was complaining of anything yesterday, but noted she was "slightly out of it" and at one point asked if it was morning or night. No history of seizures/strokes, per . 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 Patient is hypertensive at 155/110, hypothermic at 35.2 C, and is on CPAP (FiO2 ratio of 30) at time of admission. ED course: NSS 1000 mL IV Calcium gluconate 1000 mg IV Insulin 10 units IV with dextrose 50% Albuterol 12mL CPAP (FiO2 ratio 30) Unable to obtain ROS in patient's current state. Allergies Allergy/AdvReac Type Severity Reaction Status Date / Time No Known Allergies Allergy Unverified 01/01/24 15:25 Home Medications Medication Instructions Recorded Confirmed Type amlodipine 5 mg tablet 5 mg PO QAM 01/01/24 01/01/24 History aspirin 81 mg tablet,delayed 81 mg PO DAILY 01/01/24 01/01/24 History release atorvastatin 20 mg tablet 20 mg PO DAILY 01/01/24 01/01/24 History baclofen 10 mg tablet 10 mg PO BID 01/01/24 01/01/24 History bupropion HCl 200 mg tablet,12 hr 200 mg PO BID 01/01/24 01/01/24 History sustained-release cholecalciferol (vitamin D3) 125 125 mcg PO DAILY 01/01/24 01/01/24 History mcg (5,000 unit) capsule clopidogrel 75 mg tablet 75 mg PO DAILY 01/01/24 01/01/24 History diclofenac sodium 75 mg 75 mg PO BID 01/01/24 01/01/24 History tablet,delayed release duloxetine 30 mg capsule,delayed 30 mg PO DAILY 01/01/24 01/01/24 History release duloxetine 60 mg capsule,delayed 60 mg PO DAILY 01/01/24 01/01/24 History release ezetimibe 10 mg tablet 10 mg PO DAILY 01/01/24 01/01/24 History fluticasone propionate 50 2 spray intranasal DAILY 01/01/24 01/01/24 History mcg/actuation nasal spray,suspension gabapentin 800 mg tablet 800 mg PO QID 01/01/24 01/01/24 History gemfibrozil 600 mg tablet 600 mg PO BID 01/01/24 01/01/24 History ipratropium 20 mcg-albuterol 100 1 puff inhalation QID PRN 01/01/24 01/01/24 History mcg/actuation mist for inhalation Shortness Of Breath Or Wheezing (Combivent Respimat) lisinopril 5 mg tablet 5 mg PO DAILY 01/01/24 01/01/24 History mirtazapine 15 mg tablet 15 mg PO HS 01/01/24 01/01/24 History oxybutynin chloride 5 mg tablet 5 mg PO BID 01/01/24 01/01/24 History pantoprazole 40 mg tablet,delayed 40 mg PO DAILY 01/01/24 01/01/24 History release potassium chloride 20 mEq 20 meq PO BID 01/01/24 01/01/24 History tablet,extended release(part/cryst) risperidone 2 mg tablet 2 mg PO QPM 01/01/24 01/01/24 History ropinirole 0.5 mg tablet 0.5 mg PO HS 01/01/24 01/01/24 History sucralfate 1 gram tablet 1 g PO QID PRN ABD DISCOMFORT 01/01/24 01/01/24 History Past Med/Surg History Medical History (Updated 01/01/24 @ 21:07 by Laith Urbano PA-C) Hypertension HLD (hyperlipidemia) Depression Tobacco abuse Social History (Updated 01/01/24 @ 18:04 by Ricardo Montaño MD) Smoking Status: Current every day smoker Tobacco Type: Cigarettes Cigarettes Per Day: 60; Do You Dip or Chew Tobacco: No; Hx Alcohol Use: No Hx Substance Use: No Preferred Language: Belgian Communication Ability: Effective Electrical Contractor Required: No Beliefs That Will Affect Care: None Current Living Situation: Spouse Current Living Situation Comment: with Other Information That Helps Us Care for You: No Feels Safe at Home: Yes Safety Concerns: Feels Safe At This Time Assistive Devices: Denture - Upper, Denture - Lower, Glasses and Nebulizer Review of Systems Review of Systems: See HPI above Physical Exam Physical Exam: General: Unresponsive; does not respond to sternal rub or painful stimuli; does not open eyes or follow commands; GCS 8; non-toxic appearing; well-nourished; cooperative HEENT: Bruise and potential residual cigarette smoke rashawn along the left methodist and left eyebrow; no scleral icterus; pinpoint pupils with no response to light; unable to assess vision and hearing Neck: supple; no lymphadenopathy; trachea midline Skin: warm, dry without signs of tenting; no cyanosis; no rashes, bruising, lesions, or erythema noted CV: chest wall NTP; RRR; S1/S2 normal; no murmurs/rubs/gallops; pulses intact and symmetric at radial, DP, and PT Lungs: no acute respiratory distress; symmetrical chest wall expansion; clear breath sounds across all lung self w/o adventitious sounds; no wheezing ABD: Soft, NTP; BS present; no rebound/guarding; no ascites; no distention; negative CVA tenderness MSK: Patient's arms and legs twitch occasionally; no edema noted in the LEs b/l, nonerythematous, shiny/hairless Neuro: Unresponsive; not alert or oriented; facial droop not appreciated at time of exam; does not respond to commands; unable to assess sensation Results & Data Results & Data Vital Signs (Past 12 Hours) Vital Signs Temp Pulse Pulse Resp BP Pulse Ox O2 Del Method 01/01/24 14:30 155/110 H 100 CPAP 01/01/24 14:23 74 16 99 01/01/24 14:23 74 16 99 BiPAP 01/01/24 14:00 78 26 H 130/98 99 Nasal Cannula 01/01/24 13:37 82 20 145/69 H 95 Nasal Cannula 01/01/24 13:33 79 01/01/24 13:07 35.2 C L 81 22 153/45 H 94 Nasal Cannula O2 Flow Rate FiO2 01/01/24 14:30 30 01/01/24 14:23 30 01/01/24 14:23 30 01/01/24 14:00 2 01/01/24 13:37 1 01/01/24 13:33 01/01/24 13:07 1 Laboratory Results Abnormal lab results 01/01/24 01/01/24 01/01/24 Range/Units 13:27 13:29 13:36 WBC 16.72 H (4.8-10.8) K/ul Neut # (Auto) 14.93 H (1.40-6.50) K/uL Lymph # (Auto) 0.71 L (1.20-3.40) K/uL [place] # (Auto) 0.91 H (0.11-0.59) K/uL VBG pH 7.22 L (7.36-7.41) VBG pCO2 57 H (38-50) mmHg POC Sodium (135-144) mmol/L Sodium 130 L (136-145) mmol/L POC Potassium (3.3-5.0) mmol/L Potassium 6.1 H* (3.5-5.1) mmol/L POC Total CO2 (24-31) mmol/L POC BUN (7-18) mg/dl BUN 31 H (6-23) mg/dl Creatinine 2.67 H (0.6-1.2) mg/dl POC Creatinine (0.6-1.3) mg/dl Glucose 212 H (70-99(Fasting)) mg/dl POC Glucose 202 H (70-99) mg/dl POC Glucose (other) (70-99) mg/dl AST 60 H (13-39) U/L Total Protein 5.9 L (6.0-8.3) gm/dl Globulin 1.7 L (2.5-4.0) gm/dl Albumin/Globulin Ratio 2.5 H (0.9-2) 01/01/24 01/01/24 Range/Units 13:41 14:45 WBC (4.8-10.8) K/ul Neut # (Auto) (1.40-6.50) K/uL Lymph # (Auto) (1.20-3.40) K/uL [place] # (Auto) (0.11-0.59) K/uL VBG pH (7.36-7.41) VBG pCO2 (38-50) mmHg POC Sodium 133 L (135-144) mmol/L Sodium (136-145) mmol/L POC Potassium 6.2 H* (3.3-5.0) mmol/L Potassium (3.5-5.1) mmol/L POC Total CO2 23 L (24-31) mmol/L POC BUN 30 H (7-18) mg/dl BUN (6-23) mg/dl Creatinine (0.6-1.2) mg/dl POC Creatinine 3.1 H (0.6-1.3) mg/dl Glucose (70-99(Fasting)) mg/dl POC Glucose 263 H (70-99) mg/dl POC Glucose (other) 204 H (70-99) mg/dl AST (13-39) U/L Total Protein (6.0-8.3) gm/dl Globulin (2.5-4.0) gm/dl Albumin/Globulin Ratio (0.9-2) Diagnostic Findings Head CT 01/01/24 13:09 CT SCAN OF THE BRAIN WITHOUT IV CONTRAST CLINICAL HISTORY: Neurological deficit. Stroke like symptoms. COMPARISON STUDY: No priors. TECHNIQUE: Unenhanced axial CT scan of the brain is performed from the vertex to the skull base. A dose lowering technique was utilized adhering to the principles of ALARA. FINDINGS: Brain parenchyma: There is mild microangiopathic change. There is a small and age-indeterminate infarct in the left cerebellar hemisphere seen on axial image #7. There is no hemorrhage, mass effect, or evidence of acute territorial ischemia by CT criteria. Khanna-white matter differentiation is preserved. No extra-axial fluid collection is seen. Ventricles, sulci, cisterns: Normal in configuration. Intracranial vasculature: There is atherosclerotic calcification of the cavernous carotid and vertebral arteries. Calvarium: Unremarkable. Sinuses and mastoids: The visualized paranasal sinuses are clear. The mastoid air cells are well pneumatized. Orbits: The bony orbits are grossly intact. There are bilateral ocular lens implants. IMPRESSION: 1. There is no hemorrhage, mass effect, or evidence of acute territorial ischemia by CT criteria. 2. There is a small age indeterminate infarct in the left cerebellar hemisphere. This may be subacute. Consider MRI for further assessment. ACT 112: Negative or not required by law. Electronically signed by: Alfred Simeon M.D. 01/01/2024 1:33 PM Head CTA 01/01/24 13:09 HEAD CTA HISTORY: neuro deficit, acute stroke suspected TECHNIQUE: Multiaxial CT images of the head were performed both before and after the intravenous administration of contrast to evaluate the major cerebral vessels. 3D/MIP images were also obtained. Sagittal and coronal reformats were reviewed. A dose lowering technique was utilized adhering to the principles of ALARA. COMPARISON: None. FINDINGS: Partially visualized right nasopharyngeal airway. Small hypodense focus in mild to moderate calcified plaque within the bilateral carotid siphons. This results in mild multifocal narrowing within the carotid siphons. There is a hypoplastic distal left vertebral artery with focal moderate to severe stenosis due to the calcified plaque. This is best seen on image 32. The basilar artery is patent. Within the left cerebellar hemisphere are noted. These are consistent with age indeterminate lacunar infarcts. There is no significant stenosis, occlusion, or aneurysm seen within the bilateral ACAs, MCAs, or elementary classroom teacher. IMPRESSION: 1. No significant stenosis, occlusion, or aneurysm within the [place]. 2. Mild multifocal narrowing within the bilateral carotid siphons due to the calcified plaque. 2. Focal moderate to severe stenosis within the distal left vertebral artery due to calcified plaque. ACT 112: Negative or not required by law. Electronically signed by: Laith Madsen M.D. 01/01/2024 1:37 PM Neck CTA 01/01/24 13:09 CT angio neck with con CLINICAL HISTORY: neuro deficit, acute stroke suspected TECHNIQUE: CT angiography of the neck was performed following intravenous administration of iodinated contrast. Coronal and sagittal MIPS were obtained from the axial data set and were submitted for review. Automated dose lowering techniques and/or adjustment according to patient size were utilized for this examination. All measurements were calculated based on NASCET criteria. Comparison: None available at the time of this dictation. FINDINGS: Small thyroid nodules are seen which do not require follow-up by ACR criteria. Interstitial thickening is in the lungs. CTA Neck: Stents are seen near the origin of the left subclavian and common carotid origins. Postsurgical changes are seen about the left carotid bifurcation. The common carotid, external carotid, cervical segments of the internal carotid arteries, and the cervical segments of the vertebral arteries are patent without hemodynamically significant stenosis. The right vertebral artery is dominant. IMPRESSION: No occlusion, hemodynamically significant stenosis, or dissection in the major cervical arteries. Assessment of stenosis of the internal carotid arteries is based on NASCET criteria. ACT 112: Negative or not required by law. Electronically signed by: Vini Ennis M.D. 01/01/2024 1:38 PM Chest X-Ray 01/01/24 13:33 XR chest 1V portable HISTORY: Shortness of breath. COMPARISON: None. FINDINGS: There are low lung volumes. No pneumothorax. No pleural effusions. The heart is normal in size. No focal lung consolidations to suggest a pneumonia. No evidence for pulmonary edema. Mild interstitial thickening. No acute fractures identified. A left carotid/subclavian artery stents are noted. A few bibasilar linear densities favor subsegmental atelectasis or scarring. Otherwise, no focal lung consolidations. IMPRESSION: Mild interstitial thickening. This could be chronic. Mild congestive change could also have a similar appearance. ACT 112: Negative or not required by law. Electronically signed by: Laith Madsen M.D. 01/01/2024 2:46 PM Hip/Pelvis X-Ray 01/01/24 14:08 SINGLE VIEW PELVIS; 2 VIEWS RIGHT HIP CLINICAL HISTORY: Right hip pain. FINDINGS: An AP view of the pelvis with AP and frog-leg views of the right hip are obtained. No prior studies are available for comparison at the time of dictation. The skeletal structures are osteopenic. There is no radiographic evidence of acute fracture involving the hips or bony pelvis. 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 There is degenerative sclerosis of the sacroiliac joints. Lumbosacral spondylosis is partially imaged. The bladder is distended and filled with excreted IV contrast. Left iliac stents are in place. The overlying soft tissues are normal as imaged. IMPRESSION: No acute bony abnormality is identified. Electronically signed by: Alfred Simeon M.D. 01/01/2024 2:44 PM Code Status & VTE Plan Code Status Full code VTE Prophylaxis Plan VTE Prophylaxis will be ordered: Yes Supervising Physician Co-Signing Physician Notes Patient seen and examined, chart reviewed, case discussed with Laith Urbano, RASHAWN and I agree with the assessment and plan as above except as otherwise noted Labs and images reviewed Sweta is a 67-year-old female with no medical records available in our system but reportedly with a history of hyperlipidemia, anxiety/depression, prior suicidality in remission who is reportedly not on narcotics at baseline who presented after she was found unresponsive morning of admission with concern for left-sided facial droop from her . Last known well was the evening prior. Patient has recently had a UTI which was last treated with antibiotics 2 weeks ago. After being found down she had Narcan administered in the field with 2 additional doses given in the ER due to pinpoint pupils reportedly some response in the field and delayed response while in the ER. She had a acute respiratory acidosis VBG 7.2 // with repeat 7.2 //. Was pending intubation for reduced consciousness and respiratory acidosis however patient subsequently began to improve and alertness and with 8 to 10 L of minute ventilation. Repeat ABG obtained. Patient reassessed at the bedside and reports that she wants to go home, but is not able to give a complete history and does not verbalize the year or where she is. She is seen with her at the bedside. She denies that she takes any narcotic/opiate medications and that none are available in the PDMP however U tox is positive for opiates in addition to likely appropriate cross positivity of MDMA.. She does not have a increased anion gap, and does not have a suppressed bicarb at bedside. Aspirin/Tylenol levels are negative. She is initially volume contracted and hyperkalemic and hypothermic at the bedside. Following calcium gluconate, insulin/D50, albuterol, and IV fluids potassium rapidly normalized. Patient clinically beginning to improve but still appears confused and altered. UTI is infected appearing without epithelial cells; given reported recent infection 2 weeks prior we will treat for potential resistant UTI with Zosyn and attempt to obtain both old cultures and follow current UCx. She is a current heavy smoker 2 packs/day. Due to left-sided facial droop concerns and initial? Left-sided weakness and field she was evaluated as a stroke alert. Initial stroke eval showed a possible subacute left cerebellar stroke which does not map to all of her symptoms, and left unilateral vertebral stenosis without bilateral/flow-limiting disease. At bedside assessment patient is bilaterally weak and follows some commands, no true asymmetry to strength or sensation is appreciated at the bedside. MRI is pending for completion of stroke eval; due to patient's unreliable history x-ray of orbits/KUB is ordered for clearance. Patient is a full code. Suspect patient is with acute metabolic encephalopathy, multifactorial with underlying infection in addition to opiate use. Send out to confirm what opiate was flagged as positive will not be available for at least several days; patient denies taking any opiates/rec drugs so it is unknown what she took or what the kinetics/half-life will be. She did not have an immediate response to Narcan but did have gradual improvement pinpoint pupils initially improved and then recurred. Patient's does have hydrocodone and MS Contin available in the trailer but he is not sure if any of these were at home w/ Kasey. Kasey denies SI/HI when mentation improved. Acute hypercapnic respiratory failure, altered mental status Patient may have had a accidental or intentional ingestion with her 's MS Contin, she denies SI/HI in taking any pain pills however urine is positive for opioids. Send out will not further stratify this for several days. Pupils were pinpoint in the field, reactive after Narcan, became pinpoint again in the ER, and then reactive after another 0.8 of Narcan in the ER. This is consistent with narcosis, given persistent affect and unclear dose/half-life of ingested medications but with MS Contin having up to 12-hour half-life will start Narcan gtt starting at 0.5 mg/h - LFTS normal. Tylenol/ASA level pending In addition patient does have a leukocytosis and infected appearing UA without contamination; will treat for potential contributing metabolic encephalopathy from UTI. Per was recently treated 2 weeks ago for similar, will treat for resistant infection and continue Zosyn She does not have an increased anion gap, and does not have a metabolic acidosis/low bicarb Does look volume contracted, patient was hyperkalemic initially at 6.2. CK is pending. She is also clinically volume contracted. Potassium normalized following fluids, insulin/dextrose and albuterol. Calcium gluconate was given. BMP trended every 4 hours. Unknown creatinine baseline, 2.51 on admission. Records pending however unfortunately [facility] losses are closed and is not a reliable historian of her med/medical conditions. Ammonia is normal VBG repeat beginning to improve; initially 7.2 /37/23 and 7.2 /43/24 prior to Narcan. On recheck PA 7.24 with CO2 49, mentation slightly improving with 8-10L MV on Bipap. Will continue BiPAP and trend VBG in 2 hours and then every 4 hours. If she continues to progress and improves with above can remain on PCU. She is currently with a minute ventilation of 910, fluctuating tidal volume averaging around the 400s with a 8 cc/kg of ideal body weight equal to approximately 440cc goal TV. If worsening/decompensated will need transfer to the ICU for intubation and further respiratory support ? Strokelike deficits Reportedly with left-sided weakness and possible facial droop in the field although these were not appreciated in the ER. CTA is with a left cerebellar subacute possible stroke which does not map with her described symptoms; and she is symmetrically weak on admission assessment. Will complete workup with MRI, given limited historian x-rays of the orbits/KUB have been ordered for prescreening. Agree with management above. Rectal aspirin x1 given as noted. CABG w/ Hx o f Stents No chest pain, troponin is normal on admission, EKG without acute ischemic change - DAPT continued. If not alert enough to tolerate PO then --> rectal aspirin daily until able to tolerate PO Agree with management of chronic issues as above Addendum: -Greatly increased mentation following Narcan pushes patient has been up trended to 1.5 mg/h. Patient's sister does present who gives additional collateral history with concerns for patient taking her 's medication to sleep. Sweta is with improved mentation and endorses that she takes some morphine to sleep and had 2 tablets of MS Contin this morning. Denies Tylenol ingestion, and adamantly denies any SI or intentional overdose. She has taken Tylenol in the past and uses up to 6 or 7 tablets a day for routine pain. Level for this remains pending, no transaminitis on intake. Patient has been titrated to a RASS of approximately -1/-2, will continue Narcan drip at this time. Work of breathing greatly improved PG Care Time/CCT Total # of Minutes Spent Total Time Spent with Patient: Total time spent is greater than 50% in coordination of care (as documented) at patient's floor/unit and/or counseling patient: [place] [address] INT INP/OBS CARE 3/75MIN Patient Type New History Comprehensive Exam Comprehensive Medical Decision Making High Complexity Diagnoses Unresponsive episode R40.4 Hyperkalemia E87.5 UTI (urinary tract infection) N39.0 Hypothermia T68.XXXA Hyponatremia E87.1 Tobacco abuse Z72.0 Depression F32.A HLD (hyperlipidemia) E78.5 Hypertension I10
--- NOTE | 2024-01-01 15:21 | Electrocardiogram Report ---
Test Reason : Blood Pressure : / mmHG Vent. Rate : 085 BPM Atrial Rate : 085 BPM P-R Int : 160 ms QRS Dur : 084 ms QT Int : 382 ms P-R-T Axes : 034 050 053 degrees QTc Int : 454 ms Normal sinus rhythm Normal ECG No previous ECGs available Confirmed by Jarred Gold ([id number]) on 01/01/2024 3:21:24 PM Referred By: Confirmed By:Jarred Gold
[2024-01-01 15:39] LABS: Base Excess VBG -4.8 mEq/L; HCO3 VBG 24 mmol/L; PCO2 VBG 60 mmHg (38-50); PO2 VBG 43 mmHg; pH VBG 7.21 (7.36-7.41)
[2024-01-01 15:40] LABS: Amphetamines+Metham, Urine Neg (Neg); Barbiturates, Urine Neg (Neg); Benzodiazepine, Urine Neg (Neg); Cocaine, Urine Neg (Neg); MDMA (Ecstacy), Urine Pos (Neg); Marijuana, Urine Neg (Neg); Methadone, Urine Neg (Neg); Opiate, Urine Pos (Neg); Phencyclidine, Urine Neg (Neg)
[2024-01-01] MEDS ORDERED: NALOXONE HCL 0.4 MG/1 ML VIAL/CARP IV STA ×2 (15:53→16:02)
[2024-01-01 16:01] LABS: Calcium 8.9 mg/dl (8.6-10.3); Creatinine Clr Calc Pharmacy 25.1 ml/min; Est GFR (African American) 22.5 ml/min; Est GFR (Non-African American) 19.4 ml/min; Potassium 4.5 mmol/L (3.5-5.1)
[2024-01-01] MEDS ORDERED: PIPERACILLIN/TAZOBACTAM 4.5 GM/100 ML BAG IV ONE (16:45)
[2024-01-01] MEDS ORDERED: STAT IV Infusion **Titration per Protocol STA (16:53)
[2024-01-01 17:14] LABS: iSTAT Arterial Blood Gas HCO3 21 meg/L (19-24); iSTAT Arterial Blood Gas pCO2 49 mmHg (35-46); iSTAT Arterial Blood Gas pH 7.24 (7.35-7.45); iSTAT Arterial Blood Gas pO2 38 mmHg (80-95); iSTAT Carbon Dioxide 22 mmol/L (24-31); iSTAT Hematocrit 41 % (37-47); iSTAT Hemoglobin 13.9 g/dl (12.0-16.0); iSTAT Potassium 4.8 mmol/L (3.3-5.0); iSTAT Sodium 135 mmol/L (135-144)
[2024-01-01] MEDS: NALOXONE HCL 5 MG in 0.9 % SODIUM CHLORIDE 87.5 ML IV SCH ×3 (17:25→23:31)
[2024-01-01] MEDS ORDERED: ASPIRIN 300 MG SUPP PR ONE (17:45)
--- NOTE | 2024-01-01 18:06 | XRay Report ---
KUB HISTORY: Unresponsive on arrival; Pre-MRI COMPARISON: None. FINDINGS: The bowel gas pattern is unremarkable. There are no dilated loops of small bowel to suggest an obstruction. No renal calculi. No ureteral calculi. No pneumoperitoneum or pneumatosis. Left kyleigh ac stent is noted. Prior cholecystectomy. Moderate well-formed stool seen within the colon and rectum . A rectal catheter is partially visualized. IMPRESSION: 1. Nonobstructive bowel gas pattern. 2. Moderate fecal retention. ACT 112: Negative or not required by law. Electronically signed by: Laith Madsen M.D. 01/01/2024 6:05 PM
[2024-01-01 18:55] LABS: Acetaminophen < 3 ug/ml (10-30); Salicylate < 3.0 mg/dl (3.0-30)
[2024-01-01] MEDS ORDERED: ONDANSETRON INJ 2 MG/ML 2 ML VIAL IV PRN (19:19)
[2024-01-01] MEDS ORDERED: ACETAMINOPHEN 1,000 MG/100 ML VIAL IV PRN (19:19)
[2024-01-01 19:37] LABS: Base Excess VBG -4.3 mEq/L; HCO3 VBG 22 mmol/L; PCO2 VBG 42 mmHg (38-50); PO2 VBG 68 mmHg; pH VBG 7.32 (7.36-7.41)
[2024-01-01 20:00] LABS: BUN Creatinine Ratio 14.5 (10-20); Calcium 8.3 mg/dl (8.6-10.3); Creatinine Clr Calc Pharmacy 33.8 ml/min; Est GFR (African American) 32.3 ml/min; Est GFR (Non-African American) 27.9 ml/min; Potassium 4.6 mmol/L (3.5-5.1)
[2024-01-01] MEDS: HEPARIN SOD 5,000 UNIT/0.5 ML VIAL SQ SCH (22:10)
[2024-01-01] MEDS: PIPERACILLIN/TAZOBACTAM 4.5 GM in DEXTROSE 5% MINI-B 100 ML IV SCH (22:18)
[2024-01-01 23:13] LABS: Base Excess VBG -1.2 mEq/L; HCO3 VBG 26 mmol/L; Oxygen Saturation VBG < 60.0 %; PCO2 VBG 51 mmHg (38-50); PO2 VBG 31 mmHg; pH VBG 7.31 (7.36-7.41)
[2024-01-01 23:19] LABS: BUN Creatinine Ratio 15.3 (10-20); Calcium 9.2 mg/dl (8.6-10.3); Creatinine Clr Calc Pharmacy 35.5 ml/min; Est GFR (African American) 34.3 ml/min; Est GFR (Non-African American) 29.6 ml/min
[2024-01-02] MEDS: NALOXONE HCL 5 MG in 0.9 % SODIUM CHLORIDE 87.5 ML IV SCH ×2 (02:59→06:24)
[2024-01-02] MEDS: PIPERACILLIN/TAZOBACTAM 4.5 GM in DEXTROSE 5% MINI-B 100 ML IV SCH (05:24)
[2024-01-02 07:08] LABS: Base Excess VBG 1.9 mEq/L; HCO3 VBG 27 mmol/L; Oxygen Saturation VBG 78.1 %; PCO2 VBG 41 mmHg (38-50); PO2 VBG 45 mmHg; pH VBG 7.42 (7.36-7.41)
[2024-01-02 07:14] LABS: Basophils # (auto) 0.02 K/uL (0.00-0.20); Basophils % (auto) 0.1 %; Eosinophils # (auto) 0.02 K/uL (0.00-0.50); Eosinophils % (auto) 0.1 %; Hematocrit (blood only) 38.4 % (37.0-47.0); Hemoglobin 13.1 g/dl (12.0-16.0); Immature Granulocytes # (auto) 0.05 K/uL (0.01-0.20); Immature Granulocytes % (auto) 0.4 %; Lymphocytes # (auto) 1.15 K/uL (1.20-3.40); Lymphocytes % (auto) 8.5 %; Mean Corpuscular Hemoglobin 31.3 pg (25.0-34.0); Mean Corpuscular Hgb Conc 34.1 g/dL (32.0-36.0); Mean Corpuscular Volume 91.6 fL (80.0-100.0); Mean Platelet Volume 11.7 fL (9.4-12.4); Monocytes # (auto) 1.08 K/uL (0.11-0.59); Neutrophils # (auto) 11.24 K/uL (1.40-6.50); Neutrophils % (auto) 82.9 %; Platelet Count 317 K/uL (130-400); RDW Coefficient of Variation 12.7 % (11.5-14.5); RDW Standard Deviation 42.4 fL (36.4-46.3); Red Blood Count 4.19 M/uL (4.20-5.40); White Blood Count 13.56 K/ul (4.8-10.8)
[2024-01-02 07:58] LABS: BUN Creatinine Ratio 18.2 (10-20); Calcium 9.9 mg/dl (8.6-10.3); Creatinine Clr Calc Pharmacy 45.7 ml/min; Est GFR (African American) 48.9 ml/min; Est GFR (Non-African American) 42.2 ml/min; Potassium 4.4 mmol/L (3.5-5.1)
[2024-01-02] MEDS: HEPARIN SOD 5,000 UNIT/0.5 ML VIAL SQ SCH (09:27)
[2024-01-02] MEDS ORDERED: ASPIRIN 81 MG ECTAB PO SCH (10:00)
[2024-01-02] MEDS ORDERED: CLOPIDOGREL BISULFATE 75 MG TAB PO SCH (10:00)
[2024-01-02] MEDS ORDERED: ATORVASTATIN 20 MG TAB PO SCH (10:00)
[2024-01-02] MEDS ORDERED: PANTOprazole 40 MG in SYRINGE 0 ML IV SCH (11:00)
--- NOTE | 2024-01-02 11:51 | Discharge Summary ---
Date of Service January 02, 2024 Admission HPI Per Admitting Provider Sweta is a 68-year-old female with unknown PMH (potentially: HTN, PAD, HLD, depression, COPD, cirrhosis, muscle spasms, suicidality, substance use, and s/p stent placement in the legs, arms, and left carotid). Patient presented via EMS for unresponsiveness. reported LKW of 12/31/2023 at 2200. He reports that the patient woke up this morning, said she needed an ambulance, then went unresponsive. EMS noted a slight left-sided facial droop; both sides flaccid. Patient is unresponsive at time of admission; GCS 8. Patient's (Patrick) is present at the bedside and provides history. He reports that he dropped her off at the house last night at 2200 on 08/31, then stayed with his elderly parents for whom he is caring. He then returned to the house around noon on 01/01, and found his in the bedroom with slurred speech. He denies any facial droop at this time. He notes that her skin was cold and clammy, and that she was twitching. He is unsure if she took her regular medications. He denies any recent falls or traumas that he knows of. notes that she has a history of drug use and depression, and that she may have had a suicide attempts prior to their marriage in 2006. He also notes that she is a current, heavy every day tobacco cigarette smoker; 2 PPD.; 2 PPD. She has a history of extensive stent placement in her arms and legs, and required a stent for carotid stenosis [address] [facility]. She follows with [facility] for [facility], and her PCP is Brigitte Aparicio in [facility]. denies that she was complaining of anything yesterday, but noted she was "slightly out of it" and at one point asked if it was morning or night. No history of seizures/strokes, per . He believes he is her power of real estate attorney, and believes she would want to be a full code. Patient is hypertensive at 155/110, hypothermic at 35.2 C, and is on CPAP (FiO2 ratio of 30) at time of admission. ED course: NSS 1000 mL IV Calcium gluconate 1000 mg IV Insulin 10 units IV with dextrose 50% Albuterol 12mL CPAP (FiO2 ratio 30) Unable to obtain ROS in patient's current state. Principal Diagnosis Metabolic encephalopathy secondary to possible opiate overdose, UGO, and/or UTI Discharge Exam The patient is awake, alert and oriented 3, well developed and well nourished, normocephalic and atraumatic, lying in bed and in no acute distress. HEENT--PERRL, EOMI, mucous membranes and oropharynx mildly dry Neck--supple. No JVD. No bruits. Thyroid normal, trachea midline, no adenopathy. Heart--normal S1 and S2. No murmurs, rubs or gallops. Lungs--clear bilaterally, no respiratory distress, no accessory muscle use. Abdomen--normal bowel sounds and soft. Mild epigastric and left sided abdominal pain Extremities--no cyanosis or clubbing. No edema. Dermatologic--normal skin turgor, normal color, no abnormal lymph nodes, no rash. Neurologic--cranial nerves II through XII grossly intact. Rheumatologic--normal range of motion. Psychiatric--normal affect. Discharge Data Allergies Allergy/AdvReac Type Severity Reaction Status Date / Time No Known Allergies Allergy Unverified 01/01/24 15:25 Consultations 01/01/24 15:01 ED Decision to Admit Stat Ordered Studies 01/01/24 13:09 CT angio head w con Stat CT angio neck with con Stat CT head/brain wo con Stat 01/02/24 09:04 MR brain wo con Stat Hospital Course (1) Unresponsive episode: Metabolic encephalopathy secondary to possible opiate overdose, UGO, and/or UTI Patient became unresponsive the morning of 01/01; EMS reported slight left facial droop; per , LKW 2200 on 12/31 Leukocytosis at 16.72 neutrophil predominance; patient is hypothermic at 35.2 C in the ED BiPAP initiated in the ED No prior records available at time of admission; unable to obtain records from [facility] in [place], as office was closed at time of admission Head CT revealed no hemorrhage, mass effect, or evidence of acute territorial ischemia; noted age-indeterminate left cerebellar hemisphere infarct (may be subacute) Head CTA noted mild multifocal narrowing within the bilateral carotid Neck CTA NAF CXR revealed interstitial thickening; ?Chronic KUB revealed nonobstructive bowel Hip and pelvic x-ray NAF VB.22/57/37/23 Trend VBG q2h while on BiPAP Follow-up AB.24/49/38/21 Brain MRI ordered, pending; patient will need to be off BiPAP for this to be done Glucose 202 on arrival Potassium 6.1 on arrival; trend Anion gap, lactate, procalcitonin, and acetaminophen/salicylate levels WNL Tox screen positive for opiates and MDMA (note: patient takes Wellbutrin) No opioids prescribed in her PMDP Patient was pending intubation due to GSC 7 despite Narcan being given via EMS; she then became fully responsive after Narcan 0.4 mg IV x 2 given in the ED IV Narcan drip started in the ED notes she does take muscle relaxants, and sometimes overdoes it Hx of depression, substance use, and potential suicidality ( is not sure) Strict n.p.o.; converted p.o. medications to IV where possible Aspirin 300 mg HI ordered; will need to continue if patient is unable to tolerate PO (patient has extensive history of PAD, stents) RASS q4h A.m. CBC, BMP (2) Hyperkalemia: K 6.1-->4.5 on arrival Calcium gluconate, insulin, D50, and albuterol given in the ED BUN 31, creatinine 2.67, EGFR 17.9 (no baseline) Bonner placed in the ED Trend BMP (3) UTI (urinary tract infection): UA positive on arrival; blood 3+, protein 1+, leukocyte esterase 2+ Urine cultures growing gram-negative Discharged on p.o. ciprofloxacin 500 mg twice daily for 5 days (4) Hypothermia: Resolved (5) Hyponatremia: Na 130-->134 on arrival Trend BMP (as above) (6) Tobacco abuse: Patient is a current everyday tobacco cigarette smoker; 2 PPD (7) Depression: Hold duloxetine while on BiPAP Hold Wellbutrin while on BiPAP Seizure precautions (8) HLD (hyperlipidemia): (9) Hypertension: Plan Discharge home Total Time Total Time Spent Total Time Spent (In Minutes): 35 minutes Discharge Plan Discharge Items Patient Disposition: Home - Self-Care Reason For Visit: UNRESPONSIVE, HYPOTHERMIC Discharge Diagnosis: Metabolic encephalopathy secondary to possible opiate overdose, UGO, and/or UTI Activity: Resume your previous activity Non-emergency contact: Primary Care Provider Call non-emergency contact if: you have any medication questions Follow-up/Referrals: Brigitte Aparicio PA-C [Primary Care Provider] - Diet: Regular Addtl Attending Provider Instructions: Please make appointment to follow-up with regular PCP Pending Studies at Discharge: No Stand-Alone Forms: My [facility], Smoking Cessation Medications and DC Order Prescriptions: New ciprofloxacin HCl 500 mg tablet 500 mg PO BID 5 Days Qty: 10 0RF Continued atorvastatin 20 mg tablet 20 mg PO DAILY sucralfate 1 gram tablet 1 g PO QID PRN (Reason: ABD DISCOMFORT) clopidogrel 75 mg tablet 75 mg PO DAILY amlodipine 5 mg tablet 5 mg PO QAM aspirin 81 mg tablet,delayed release (DR/EC) 81 mg PO DAILY risperidone 2 mg tablet 2 mg PO QPM potassium chloride 20 mEq tablet,ER particles/crystals 20 meq PO BID gabapentin 800 mg tablet 800 mg PO QID baclofen 10 mg tablet 10 mg PO BID gemfibrozil 600 mg tablet 600 mg PO BID pantoprazole 40 mg tablet,delayed release (DR/EC) 40 mg PO DAILY ropinirole 0.5 mg tablet 0.5 mg PO HS diclofenac sodium 75 mg tablet,delayed release (DR/EC) 75 mg PO BID lisinopril 5 mg tablet 5 mg PO DAILY mirtazapine 15 mg tablet 15 mg PO HS oxybutynin chloride 5 mg tablet 5 mg PO BID fluticasone propionate 50 mcg/actuation spray,suspension 2 spray INTRANASAL DAILY cholecalciferol (vitamin D3) 125 mcg (5,000 unit) capsule 125 mcg PO DAILY bupropion HCl 200 mg tablet sustained-release 12 hr 200 mg PO BID ezetimibe 10 mg tablet 10 mg PO DAILY duloxetine 30 mg capsule,delayed release(DR/EC) 30 mg PO DAILY Rx Instructions: TOTAL DOSE 90 MG--TAKES WITH 60 MG CAP. duloxetine 60 mg capsule,delayed release(DR/EC) 60 mg PO DAILY Rx Instructions: TOTAL DOSE 90 MG--TAKES WITH 30 MG CAP. Combivent Respimat 20-100 mcg/actuation mist 1 puff INHALATION QID PRN (Reason: Shortness Of Breath Or Wheezing) Discharge Orders: Discharge Order (Routine); Ordered 01/02/24 Ordered By: Rashida Grullon Admission Data Admit Date/Time: 01/01/24 17:21 Attending Provider: Rashida Grullon Admit Provider: Aleksander Kwon Primary Care Provider: Brigitte Aparicio Other Providers: Aleksander Kwon Coding Level of Care Code 40262 INP/OBS DISCH >30 MIN Diagnoses Unresponsive episode R40.4 Hyperkalemia E87.5 UTI (urinary tract infection) N39.0; R31.9 Hematuria presence: with hematuria Urinary tract infection type: site unspecified Hypothermia T68.XXXA Hyponatremia E87.1 Tobacco abuse Z72.0 Depression F32.A HLD (hyperlipidemia) E78.5 Hypertension I10 Time Spent (min) 35
[2024-01-02] MEDS ORDERED: risperiDONE 2 MG TABLET PO SCH (21:00)
[2024-01-02] MEDS ORDERED: MIRTAZAPINE TAB 15 MG TAB PO SCH (21:00)
[2024-01-02] MEDS ORDERED: buPROPion SR 100 MG TABCR PO SCH (21:00)
[2024-01-03] MEDS ORDERED: DULoxetine HCL 30 MG CAP PO SCH (09:00)
[2024-01-03] MEDS ORDERED: DULoxetine HCL 60 MG CAP PO SCH (09:00)
[2024-01-07 10:08] LABS: Codeine Urine NEGATIVE ng/mL (<50); Hydrocodone Urine 370 ng/mL (<50); Hydromor Urine 76 ng/mL (<50); MDA negative; MDEA negative; MDMA (Ecstasy) Urine, Confirm negative; Morphine Urine >10000 ng/mL (<50); Norhydrocodone Conf Ur 642 ng/mL (<50); Oxycodone Urine NEGATIVE ng/mL (<50); Oxymorph Urine NEGATIVE ng/mL (<50)
== END 2024-01-02 13:34 | disposition home or self-care (01) ==
LOC: ED 13:14 → EDBD 13:14 → INTOOBSV 17:21 → EDBD 17:21 → EDINP 17:21 → SUATTDRO 17:21 → 2S 19:18

== ENCOUNTER 2024-01-03 18:21 | Inpatient (IN) ==
--- NOTE | 2024-01-03 18:41 | Emergency Department Note ---
Impression & Plan AMS (altered mental status), Agitation, Rhabdomyolysis ED Provider Note NAME: SAW CHEEK AGE: 68 SEX: F : 1955 ARRIVES VIA: Ambulance INFORMANT: Patient, EMS ED PROVIDER(S): Jarred Terrell DO CHIEF COMPLAINT: Altered mental status HPI: The patient is a 68-year-old female who was just discharged from facility who presented to the emergency department with confusion. The patient was admitted to our facility and apparently had some issues with an opiate overdose. She was on Narcan drip. She was recently discharged from facility. According to her significant other who the prehospital personnel got to interview the patient's been confused ever since yesterday. There is been no reported trauma. There is been no reported nausea or vomiting. There is been no reported fever or headaches. The patient himself is unable to give much history. She is experiencing echolacia and is not answering questions appropriately. ROS: See above HPI for pertinent positives & negatives. A total of 10 systems reviewed and were otherwise negative. PAST MEDICAL HISTORY: See Below PAST SURGICAL HISTORY: See Below FAMILY HISTORY: See Below SOCIAL HISTORY: See Below HOME MEDICATIONS: See Below ALLERGIES: See Below VITALS: See Below PHYSICAL EXAMINATION: GENERAL: The patient is awake and alert. She is not anxious or uncomfortable appearing. EYES: The conjunctivae are clear. The pupils are round and reactive. EARS, NOSE, MOUTH AND THROAT: The nose is without any evidence of any deformity. NECK: The neck is nontender and supple. RESPIRATORY: Normal respiratory effort is noted there is no evidence of wheezing rhonchi or rales CARDIOVASCULAR: Regular rate and rhythm noted there no murmurs rubs or gallops normal S1 normal S2. GASTROINTESTINAL: The abdomen is soft. Abdomen is nontender. MUSCULOSKELETAL/EXTREMITIES: There is no evidence of gross deformity full range of motion is noted in the hips and shoulders. SKIN: There is no obvious evidence of any rash. There are no petechiae, pallor or cyanosis noted. NEUROLOGIC: Patient is awake alert and not answering questions appropriately. She is oriented to person only. Strength is symmetric. There is no facial droop. Speech is clear. MEDICAL DECISION MAKING: The patient is a 68-year-old female who presented to the emergency department for an evaluation of altered mental status. The patient was admitted to our facility recently. The patient was on a Narcan drip until yesterday. It was felt that she was taking her 's opiate medications. The patient went home but her significant other states that she has not been acting herself ever since she left the hospital. The patient was oriented to person only. She had no focal neurologic deficits. She had no meningismus or fever. I discussed the patient's laboratory and radiographic studies with her and her significant other. She was treated with Ativan for agitation but also treated with IV fluids for an elevated CPK. There is no CPK drawn previously. I am unsure of the significance of this elevation. It could be a medication reaction. She had no fever but she does have some signs that could be related to serotonin syndrome. I discussed her condition with the on-call [facility] hospitalist. They have agreed to evaluate the patient in the emergency department for further management and disposition. Triage Nursing notes reviewed. Prior medical records reviewed Vital Signs: reviewed and remarkable for elevated blood pressure. Differential diagnosis: Infection, hypoglycemia, electrolyte abnormalities, overdose, toxicologic, cardiac sources, intracerebral event, neurologic, trauma, as well as other pathologies. ER treatment provided: See below Diagnostics interpreted by me: ECG: EKG was obtained in the emergency department. My interpretation is normal sinus rhythm at 92 bpm. There is no ectopy. There is no acute ST segment abnormalities noted. This was compared to a tracing from January 01, 2024. No changes were noted. Cardiac Monitoring: An order was placed for continuous cardiac monitoring. The monitor shows a rate of 96 bpm with sinus rhythm. Laboratory studies: As stated above and show below. Imaging studies: See below. Radiographic imaging was reviewed by myself Consultation(s): I discussed the patient's condition with Dr. Sunshine [facility] Med/Surg History Medical History Hypertension HLD (hyperlipidemia) Depression Tobacco abuse Social History Smoking Status: Unknown if ever smoked Tobacco Type: Cigarettes Cigarettes Per Day: 60; Do You Dip or Chew Tobacco: No; Hx Alcohol Use: No Hx Substance Use: No Preferred Language: Yi Communication Ability: Effective Ginseng Farmer Required: No Beliefs That Will Affect Care: None Current Living Situation: Spouse Current Living Situation Comment: with Feels Safe at Home: Yes Assistive Devices: Denture - Upper, Denture - Lower, Glasses and Nebulizer Allergies Allergies Allergy/AdvReac Type Severity Reaction Status Date / Time No Known Allergies Allergy Unverified 01/01/24 15:25 Home Meds Home Medications Medication Instructions Recorded Confirmed amlodipine 5 mg tablet 5 mg PO QAM 01/01/24 01/03/24 aspirin 81 mg tablet,delayed 81 mg PO DAILY 01/01/24 01/03/24 release atorvastatin 20 mg tablet 20 mg PO DAILY 01/01/24 01/03/24 baclofen 10 mg tablet 10 mg PO BID 01/01/24 01/03/24 bupropion HCl 200 mg tablet,12 hr 200 mg PO BID 01/01/24 01/03/24 sustained-release cholecalciferol (vitamin D3) 125 125 mcg PO DAILY 01/01/24 01/03/24 mcg (5,000 unit) capsule clopidogrel 75 mg tablet 75 mg PO DAILY 01/01/24 01/03/24 diclofenac sodium 75 mg 75 mg PO BID 01/01/24 01/03/24 tablet,delayed release duloxetine 30 mg capsule,delayed 30 mg PO DAILY 01/01/24 01/03/24 release duloxetine 60 mg capsule,delayed 60 mg PO DAILY 01/01/24 01/03/24 release ezetimibe 10 mg tablet 10 mg PO DAILY 01/01/24 01/03/24 fluticasone propionate 50 2 spray intranasal DAILY 01/01/24 01/03/24 mcg/actuation nasal spray,suspension gabapentin 800 mg tablet 800 mg PO QID 01/01/24 01/03/24 gemfibrozil 600 mg tablet 600 mg PO BID 01/01/24 01/03/24 ipratropium 20 mcg-albuterol 100 1 puff inhalation QID PRN 01/01/24 01/03/24 mcg/actuation mist for inhalation Shortness Of Breath Or Wheezing (Combivent Respimat) lisinopril 5 mg tablet 5 mg PO DAILY 01/01/24 01/03/24 mirtazapine 15 mg tablet 15 mg PO HS 01/01/24 01/03/24 oxybutynin chloride 5 mg tablet 5 mg PO BID 01/01/24 01/03/24 pantoprazole 40 mg tablet,delayed 40 mg PO DAILY 01/01/24 01/03/24 release potassium chloride 20 mEq 20 meq PO BID 01/01/24 01/03/24 tablet,extended release(part/cryst) risperidone 2 mg tablet 2 mg PO QPM 01/01/24 01/03/24 ropinirole 0.5 mg tablet 0.5 mg PO HS 01/01/24 01/03/24 sucralfate 1 gram tablet 1 g PO QID PRN ABD DISCOMFORT 01/01/24 01/03/24 Previous Rx's Medication Instructions Recorded ciprofloxacin HCl 500 mg tablet 500 mg PO BID 5 days #10 tabs 01/02/24 Results & Data (ED) Vital Signs Vital Signs - 24 hr 01/03/24 18:30 01/03/24 18:33 01/03/24 20:00 Temperature 36.6 C Temperature Source Oral Pulse Rate 88 109 H Pulse Rate [Apical] 96 H Respiratory Rate 16 20 Respiratory Effort / Characteristics Non-Labored Spontaneous Non-Labored Spontaneous Respiratory Depth Normal Normal Respiratory Pattern Regular Blood Pressure 179/89 H Blood Pressure [Right Arm] 177/77 H Blood Pressure Mean 119 Blood Pressure Mean [Right Arm] 110 Blood Pressure Position [Right Arm] Sitting Pulse Oximetry 92 93 Oxygen Delivery Method Room Air Room Air Sepsis Recent Fever Within 48 Hours No Sepsis New/Unexplained Change in Mental Status No Sepsis Action Taken by Nursing No Action Required Home Medications Current Medication List: was personally reviewed by me Laboratory Data Attestation: I reviewed the patient's lab results. 01/03/24 19:03 01/03/24 19:03 Lab Results 01/03/24 01/03/24 Range/Units 19:03 20:13 WBC 14.05 H (4.8-10.8) K/ul RBC 4.16 L (4.20-5.40) M/uL Hgb 12.9 (12.0-16.0) g/dl Hct 37.9 (37.0-47.0) % MCV 91.1 (80.0-100.0) fL MCH 31.0 (25.0-34.0) pg MCHC 34.0 (32.0-36.0) g/dL RDW Std Deviation 40.5 (36.4-46.3) fL RDW Coeff of Aishwarya 12.2 (11.5-14.5) % Plt Count 329 (130-400) K/uL MPV 11.4 (9.4-12.4) fL Immature Gran % (Auto) 0.5 % Neut % (Auto) 77.0 % Lymph % (Auto) 12.2 % [place] % (Auto) 9.8 % Eos % (Auto) 0.1 % Baso % (Auto) 0.4 % Neut # (Auto) 10.83 H (1.40-6.50) K/uL Lymph # (Auto) 1.72 (1.20-3.40) K/uL [place] # (Auto) 1.37 H (0.11-0.59) K/uL Eos # (Auto) 0.01 (0.00-0.50) K/uL Baso # (Auto) 0.05 (0.00-0.20) K/uL Immature Gran # (Auto) 0.07 (0.01-0.20) K/uL PT 10.6 (9.0-12.0) Seconds INR 1.0 (0.9-1.1) APTT 23 (21-31) Seconds PTT Ratio 0.8 VBG pH 7.48 H (7.36-7.41) VBG pCO2 35 L (38-50) mmHg VBG pO2 55 mmHg VBG HCO3 26 mmol/L VBG O2 Saturation 87.6 % VBG Base Excess 2.8 mEq/L Carboxyhemoglobin 1.9 % THgb Sodium 138 (136-145) mmol/L Potassium 3.5 D (3.5-5.1) mmol/L Chloride 103 (98-107) mmol/L Carbon Dioxide 24 (21-32) mmol/L Anion Gap 11 (3-11) BUN 20 (6-23) mg/dl Creatinine 0.97 D (0.6-1.2) mg/dl Est Cr Clr Drug Dosing 64.1 ml/min Est GFR ( Amer) 70.5 ml/min Est GFR (Non-Af Amer) 60.9 ml/min BUN/Creatinine Ratio 20.6 H (10-20) Glucose 156 H (70-99(Fasting)) mg/dl Calcium 10.0 (8.6-10.3) mg/dl Magnesium 1.7 (1.7-2.4) mg/dl Total Bilirubin 0.4 (0.2-1.0) mg/dl AST 66 H (13-39) U/L ALT 39 (7-52) U/L Alkaline Phosphatase 76 (34-104) U/L Ammonia 36.0 (18-72) umol/L Total Creatine Kinase 3126 H (26-192) U/L Troponin I High Sens 6.1 (0-14) pg/ml Total Protein 6.7 (6.0-8.3) gm/dl Albumin 4.4 (3.4-5.0) gm/dl Globulin 2.3 L (2.5-4.0) gm/dl Albumin/Globulin Ratio 1.9 (0.9-2) Lipase 38 (11-82) U/L Urine Color Yellow Urine Appearance Clear (Clear) Urine pH 5.5 (4.5-7.5) Ur Specific [place] 1.021 (1.000-1.030) Urine Protein Trace H (Negative) Urine Glucose (UA) 2+ H (Negative) Urine Ketones Trace H (Negative) Urine Blood Negative (Negative) Urine Nitrite Negative (Negative) Urine Bilirubin Negative (Negative) Urine Urobilinogen Negative (Negative) Ur Leukocyte Esterase Negative (Negative) Urine WBC (Auto) 1-5 (0-5) /hpf Urine RBC (Auto) 0-4 (0-4) /hpf U Hyaline Cast (Auto) 1-5 (0-5) /lpf U Epithel Cells (Auto) 5-10 H (0-5) /lpf Urine Bacteria (Auto) Negative (Negative) Salicylates < 3.0 L (3.0-30) mg/dl Acetaminophen < 3 L (10-30) ug/ml Ethyl Alcohol mg/dL < 10.0 (<10.0) mg/dl Administered Medications Discontinued Medications Sodium Chloride (Nss) 500 mls @ 999 mls/hr IV .Q31M VIANEY Stop: 01/03/24 19:00 Last Infusion: 01/03/24 20:03 Dose: Infused Documented By: Admin: 01/03/24 19:32 Dose: 999 mls/hr Documented By: RUTHIE Lorazepam (Lorazepam 1 Mg/1 Ml Syr Ed Inj Use) 1 mg IV ONE STA Stop: 01/03/24 19:27 Last Admin: 01/03/24 19:30 Dose: 1 mg Documented By: RUTHIE Imaging Data Attestation: I personally reviewed and interpreted this imaging study as follows: My Impression: 1 view chest x-ray was obtained in the emergency department. My interpretation is no free air or definite infiltrate, final report below. CT of the brain was obtained in the emergency department. My interpretation is no intracranial hemorrhage or mass effect, final report below. Radiologist's Impression: Chest X-Ray 01/03/24 18:29 XR chest 1V portable CLINICAL HISTORY: ams TECHNIQUE: Single frontal radiograph of the chest was obtained. Comparison: Comparison is made to chest radiograph 01/01/2024 FINDINGS: Exam is limited by underpenetration. Cardiomegaly is noted. The lungs are clear. No evidence of pleural effusion or pneumothorax. IMPRESSION: No acute chest disease. ACT 112: Negative or not required by law. Electronically signed by: Vini Ennis M.D. 01/03/2024 7:[address] 01/03/24 18:29 Exam(s): CT HEAD Without Contrast EXAM: CT Head Without Intravenous Contrast CLINICAL HISTORY: Reason for exam: ams. TECHNIQUE: Axial computed tomography images of the head/brain without intravenous contrast. CTDI is 36.31 mGy and DLP is 546.36 mGy-cm. Automated exposure control was utilized for the study. A dose lowering technique was utilized adhering to the principles of ALARA. COMPARISON: 01/01/2024 FINDINGS: Brain: No hemorrhage, extra-axial fluid collection, mass effect, or edema. Ventricles: Unremarkable. Bones/joints: Unremarkable. No fracture. Soft tissues: Unremarkable. Sinuses: No acute sinusitis. Mastoid air cells: Unremarkable as visualized. IMPRESSION: 1. No acute intracranial abnormality. Electronically signed by: Omid Molina MD 01/03/24 19:48 PM Discharge Plan Visit Data Chief Complaint: Confusion Stated Complaint: AMS, HALLUCINATING ED Provider: Jarred Terrell Discharge Problem: AMS (altered mental status), Agitation, Rhabdomyolysis Patient Disposition: Being Evaluated by Hospitalist Forms Stand Alone Forms: My [facility] Prescriptions Prescriptions: No Action atorvastatin 20 mg tablet 20 mg PO DAILY sucralfate 1 gram tablet 1 g PO QID PRN (Reason: ABD DISCOMFORT) clopidogrel 75 mg tablet 75 mg PO DAILY amlodipine 5 mg tablet 5 mg PO QAM aspirin 81 mg tablet,delayed release (DR/EC) 81 mg PO DAILY risperidone 2 mg tablet 2 mg PO QPM potassium chloride 20 mEq tablet,ER particles/crystals 20 meq PO BID gabapentin 800 mg tablet 800 mg PO QID baclofen 10 mg tablet 10 mg PO BID gemfibrozil 600 mg tablet 600 mg PO BID pantoprazole 40 mg tablet,delayed release (DR/EC) 40 mg PO DAILY ropinirole 0.5 mg tablet 0.5 mg PO HS diclofenac sodium 75 mg tablet,delayed release (DR/EC) 75 mg PO BID lisinopril 5 mg tablet 5 mg PO DAILY mirtazapine 15 mg tablet 15 mg PO HS oxybutynin chloride 5 mg tablet 5 mg PO BID fluticasone propionate 50 mcg/actuation spray,suspension 2 spray INTRANASAL DAILY cholecalciferol (vitamin D3) 125 mcg (5,000 unit) capsule 125 mcg PO DAILY bupropion HCl 200 mg tablet sustained-release 12 hr 200 mg PO BID ezetimibe 10 mg tablet 10 mg PO DAILY duloxetine 30 mg capsule,delayed release(DR/EC) 30 mg PO DAILY Rx Instructions: TOTAL DOSE 90 MG--TAKES WITH 60 MG CAP. duloxetine 60 mg capsule,delayed release(DR/EC) 60 mg PO DAILY Rx Instructions: TOTAL DOSE 90 MG--TAKES WITH 30 MG CAP. Combivent Respimat 20-100 mcg/actuation mist 1 puff INHALATION QID PRN (Reason: Shortness Of Breath Or Wheezing) ciprofloxacin HCl 500 mg tablet 500 mg PO BID 5 Days Qty: 10 0RF Referrals Referrals: Brigitte Aparicio PA-C [Primary Care Provider] - Discharge Problem: AMS (altered mental status) Qualifiers: Altered mental status type: unspecified Qualified Code(s): R41.82 - Altered mental status, unspecified Rhabdomyolysis Qualifiers: Rhabdomyolysis type: non-traumatic Qualified Code(s): M62.82 - Rhabdomyolysis
--- NOTE | 2024-01-03 19:10 | XRay Report ---
XR chest 1V portable CLINICAL HISTORY: ams TECHNIQUE: Single frontal radiograph of the chest was obtained. Comparison: Comparison is made to chest radiograph 01/01/2024 FINDINGS: Exam is limited by underpenetration. Cardiomegaly is noted. The lungs are clear. No evidence of pleur al effusion or pneumothorax. IMPRESSION: No acute chest disease. ACT 112: Negative or not required by law. Electronically signed by: Vini Ennis M.D. 01/03/2024 7:08 PM
[2024-01-03 19:17] LABS: Base Excess VBG 2.8 mEq/L; HCO3 VBG 26 mmol/L; Oxygen Saturation VBG 87.6 %; PCO2 VBG 35 mmHg (38-50); PO2 VBG 55 mmHg; pH VBG 7.48 (7.36-7.41)
[2024-01-03 19:23] LABS: Basophils # (auto) 0.05 K/uL (0.00-0.20); Basophils % (auto) 0.4 %; Eosinophils # (auto) 0.01 K/uL (0.00-0.50); Eosinophils % (auto) 0.1 %; Hematocrit (blood only) 37.9 % (37.0-47.0); Hemoglobin 12.9 g/dl (12.0-16.0); Immature Granulocytes # (auto) 0.07 K/uL (0.01-0.20); Immature Granulocytes % (auto) 0.5 %; Lymphocytes # (auto) 1.72 K/uL (1.20-3.40); Lymphocytes % (auto) 12.2 %; Mean Corpuscular Volume 91.1 fL (80.0-100.0); Mean Platelet Volume 11.4 fL (9.4-12.4); Monocytes # (auto) 1.37 K/uL (0.11-0.59); Monocytes % (auto) 9.8 %; Neutrophils # (auto) 10.83 K/uL (1.40-6.50); Platelet Count 329 K/uL (130-400); RDW Coefficient of Variation 12.2 % (11.5-14.5); RDW Standard Deviation 40.5 fL (36.4-46.3); Red Blood Count 4.16 M/uL (4.20-5.40); White Blood Count 14.05 K/ul (4.8-10.8)
[2024-01-03] MEDS: LORazepam 1 MG/1 ML SYR ED Inj Use IV STA ×2 (19:30→21:00)
[2024-01-03] MEDS: SODIUM CHLORIDE 0.9% 500 ML IV SCH (19:32)
[2024-01-03 19:41] LABS: Acetaminophen < 3 ug/ml (10-30); Salicylate < 3.0 mg/dl (3.0-30)
[2024-01-03 19:42] LABS: Albumin Globulin Ratio 1.9 (0.9-2); Albumin Level 4.4 gm/dl (3.4-5.0); BUN Creatinine Ratio 20.6 (10-20); Bilirubin,Total 0.4 mg/dl (0.2-1.0); Creatinine Clr Calc Pharmacy 64.1 ml/min; Est GFR (African American) 70.5 ml/min; Est GFR (Non-African American) 60.9 ml/min; Globulin 2.3 gm/dl (2.5-4.0); Magnesium 1.7 mg/dl (1.7-2.4); Potassium 3.5 mmol/L (3.5-5.1); Total Protein 6.7 gm/dl (6.0-8.3)
[2024-01-03 19:47] LABS: Troponin I High Sensitivity 6.1 pg/ml (0-14)
[2024-01-03 19:49] LABS: Partial Thromboplastin Ratio 0.8; Partial Thromboplastin Time 23 Seconds (21-31); Prothrombin Time 10.6 Seconds (9.0-12.0)
--- NOTE | 2024-01-03 19:49 | CT Scan Report ---
Exam(s): CT HEAD Without Contrast EXAM: CT Head Without Intravenous Contrast CLINICAL HISTORY: Reason for exam: ams. TECHNIQUE: Axial computed tomography images of the head/brain without intravenous contrast. CTDI is 36.31 mGy and DLP is 546.36 mGy-cm. Automated exposure control was utilized for the study. A dose lowering technique was utilized adhering to the principles of ALARA. COMPARISON: 01/01/2024 FINDINGS: Brain: No hemorrhage, extra-axial fluid collection, mass effect, or edema. Ventricles: Unremarkable. Bones/joints: Unremarkable. No fracture. Soft tissues: Unremarkable. Sinuses: No acute sinusitis. Mastoid air cells: Unremarkable as visualized. IMPRESSION: 1. No acute intracranial abnormality. Electronically signed by: Omid Molina MD 01/03/24 19:48 PM
[2024-01-03 20:36] LABS: Appearance Urine Clear (Clear); Bacteria Urine Automated Negative (Negative); Bilirubin Urine Negative (Negative); Blood Urine Negative (Negative); Color Urine Yellow; Glucose Urine UA 2+ (Negative); Ketones Urine Trace (Negative); Leukocyte Esterase Urine Negative (Negative); Nitrite Urine Negative (Negative); Protein Urine Trace (Negative); RBC Urine Automated 0-4 /hpf (0-4); Specific Gravity Urine 1.021 (1.000-1.030); Urobilinogen Urine Negative (Negative); pH Urine 5.5 (4.5-7.5)
[2024-01-03 21:04] LABS: Amphetamines+Metham, Urine Neg (Neg); Barbiturates, Urine Neg (Neg); Benzodiazepine, Urine Neg (Neg); Cocaine, Urine Neg (Neg); MDMA (Ecstacy), Urine Pos (Neg); Marijuana, Urine Neg (Neg); Methadone, Urine Neg (Neg); Opiate, Urine Neg (Neg); Phencyclidine, Urine Neg (Neg)
[2024-01-03] MEDS: SODIUM CHLORIDE 0.9% 1,000 ML IV ONE (21:04)
--- NOTE | 2024-01-03 21:15 | History & Physical Report ---
Date of Service January 03, 2024 Assessment & Plan (1) AMS (altered mental status): Plan: Patient returns for worsening confusion, echolalia, and incoherent thought processes since her discharge on 01/02 She was at [facility] for an unresponsive episode on 01/01; opiates+ patient was placed on IV Narcan drip Brain MRI was not obtained prior to previous discharge Head CT revealed NAF CXR NAF Imaging on 01/01: Head CT revealed a small age-indeterminate infarct in the left cerebellar hemisphere that required MRI for further assessment Head CTA revealed moderate to severe stenosis within the distal left vertebral artery Neck CTA revealed NAF Brain MRI ordered, pending Echocardiogram ordered, pending Opiates negative on arrival Salicylates, acetaminophen WNL MDMA screen positive in setting of Wellbutrin use Patient does not exhibit facial droop; passed dysphagia screen, okay to eat Neurocheck q4h One-to-one observation Fall precautions Psychiatry consulted It is highly recommended that the patient be cleared by psychiatry prior to discharge (in the setting of new onset echolalia + intentional v. unintentional drug overdose) Neurology consulted ?hypoxic brain injury Consider LP if patient does not improve or clinically deteriorates PT/OT consulted A.m. BMP, CBC, fasting lipid panel, A1c (2) Leukocytosis: Plan: UA negative on 01/03 However, UA positive on 01/01 and covered with Zosyn inpatient Patient was discharged on ciprofloxacin 500 mg p.o. BID x 5 days (only took 1 dose) Urine culture on 01/01 sensitive to Rocephin Will continue to cover with Rocephin 2000 mg IV q24h while inpatient (3) Rhabdomyolysis: Plan: CK elevated at 3126 Continue fluid resuscitation with Plasma-Lyte at 125mL/hr x2 RE-check AM CK level (4) Hypertension: Plan: Continue amlodipine (5) HLD (hyperlipidemia): Plan: Continue ezetimibe, atorvastatin Plan Disposition: Admit to PCU telemetry Full code Regular diet (aspiration precautions) VTE PPx: Lovenox 40mg SQ q24h History of Present Illness Chief Complaint: Confusion Primary Care Provider: Brigitte Sol is a 68-year-old female with unknown PMH due to unavailable medical records. She returns to the ED with her (Patrick) for worsening confusion, agitation, incoherent thought processes, and echolalia since her discharge yesterday on 01/02. Patient was admitted to [facility] on 01/01 for unresponsiveness and presumed opiate ingestion; whether this was intentional or unintentional was yet to be determined. reports she was confused at time of discharge, and had never returned to her normal baseline. He reports that she would not eat last night, and was repeating things over and over again, and making repetitive hand motions. Patient is a poor historian at time of admission. She exhibits incoherent thought processes, does not respond to questioning, and repeats phrases in echolalic fashion, such as "he took the mask off" x5. She also points out observations in her surroundings, such as "blue scrubs", "black hair", etc. Patient is hypertensive at 171/99 at time of admission. ED course: Lorazepam 1 mg IV x 2 NSS 1500 mL IV Patient is unable to reliably provide any ROS at this time. Potential PMH include hyperlipidemia, anxiety/depression, prior suicidality, substance use, HTN, PAD, HLD, depression, COPD, cirrhosis, muscle spasms, s/p stent placement in the legs/arms/left carotid. Allergies Allergy/AdvReac Type Severity Reaction Status Date / Time No Known Allergies Allergy Unverified 01/01/24 15:25 Home Medications Medication Instructions Recorded Confirmed Type amlodipine 5 mg tablet 5 mg PO QAM 01/01/24 01/03/24 History aspirin 81 mg tablet,delayed 81 mg PO DAILY 01/01/24 01/03/24 History release atorvastatin 20 mg tablet 20 mg PO DAILY 01/01/24 01/03/24 History baclofen 10 mg tablet 10 mg PO BID 01/01/24 01/03/24 History bupropion HCl 200 mg tablet,12 hr 200 mg PO BID 01/01/24 01/03/24 History sustained-release cholecalciferol (vitamin D3) 125 125 mcg PO DAILY 01/01/24 01/03/24 History mcg (5,000 unit) capsule clopidogrel 75 mg tablet 75 mg PO DAILY 01/01/24 01/03/24 History diclofenac sodium 75 mg 75 mg PO BID 01/01/24 01/03/24 History tablet,delayed release duloxetine 30 mg capsule,delayed 30 mg PO DAILY 01/01/24 01/03/24 History release duloxetine 60 mg capsule,delayed 60 mg PO DAILY 01/01/24 01/03/24 History release ezetimibe 10 mg tablet 10 mg PO DAILY 01/01/24 01/03/24 History fluticasone propionate 50 2 spray intranasal DAILY 01/01/24 01/03/24 History mcg/actuation nasal spray,suspension gabapentin 800 mg tablet 800 mg PO QID 01/01/24 01/03/24 History gemfibrozil 600 mg tablet 600 mg PO BID 01/01/24 01/03/24 History ipratropium 20 mcg-albuterol 100 1 puff inhalation QID PRN 01/01/24 01/03/24 History mcg/actuation mist for inhalation Shortness Of Breath Or Wheezing (Combivent Respimat) lisinopril 5 mg tablet 5 mg PO DAILY 01/01/24 01/03/24 History mirtazapine 15 mg tablet 15 mg PO HS 01/01/24 01/03/24 History oxybutynin chloride 5 mg tablet 5 mg PO BID 01/01/24 01/03/24 History pantoprazole 40 mg tablet,delayed 40 mg PO DAILY 01/01/24 01/03/24 History release potassium chloride 20 mEq 20 meq PO BID 01/01/24 01/03/24 History tablet,extended release(part/cryst) risperidone 2 mg tablet 2 mg PO QPM 01/01/24 01/03/24 History ropinirole 0.5 mg tablet 0.5 mg PO HS 01/01/24 01/03/24 History sucralfate 1 gram tablet 1 g PO QID PRN ABD DISCOMFORT 01/01/24 01/03/24 History ciprofloxacin HCl 500 mg tablet 500 mg PO BID 5 days #10 tabs 01/02/24 01/03/24 Rx Past Med/Surg History Medical History Hypertension HLD (hyperlipidemia) Depression Tobacco abuse Social History Smoking Status: Current every day smoker Tobacco Type: Cigarettes Cigarettes Per Day: 60; Do You Dip or Chew Tobacco: No; Hx Alcohol Use: No Hx Substance Use: Yes Preferred Language: Bengali Communication Ability: Effective Rfid Engineer Required: No Beliefs That Will Affect Care: None Current Living Situation: Spouse Current Living Situation Comment: with Other Information That Helps Us Care for You: No Feels Safe at Home: Yes Assistive Devices: Denture - Upper and Denture - Lower Review of Systems Review of Systems: See HPI above Physical Exam Physical Exam: General: mild agitation; dazed; non-toxic appearing HEENT: normocephalic, atraumatic; no scleral icterus; PERRLA w/ EOMs intact; moist mucus membrane; vision and hearing grossly intact Neck: supple; no JVD; no lymphadenopathy; trachea midline Skin: warm, dry without signs of tenting; no cyanosis; no rashes, bruising, lesions, or erythema noted CV: chest wall NTP; RRR; S1/S2 normal; no murmurs/rubs/gallops; pulses intact and symmetric at radial, DP, and PT Lungs: no acute respiratory distress; symmetrical chest wall expansion; clear breath sounds across all lung self w/o adventitious sounds; no wheezing ABD: Soft, NTP; BS present; no rebound/guarding; no ascites; no distention; negative CVA tenderness MSK: no tics or fasciculations; no edema noted in the LEs b/l, nonerythematous Neuro: A&Ox3; delayed speech; noting general observations around the room; ?expressive aphasia; tangential thought process; echolalia and word repetition; no unilateral deficits appreciated; no facial droop appreciated; unable to assess sensation at this time MMSE was started, but interrupted due to patient being brought to MRI. The following was noted: Patient was able to distinguish the year (2023) Patient was not able to distinguish the current season (winter) X Patient was able to distinguish the month (January) Patient was able to sing to the date (January 03) Patient does not distinguish the day of the week (Saturday) X 02/03 Patient was able distinguish the country we are in ([place]) Patient was able to distinguish state we are in ([place]; note: this response took >20seconds) Patient was unable to say what town we're in ([place]) X Patient was unable to provide her address (address) X Patient was able to state she was currently located in the hospital (Hospital ED) 3 Patient was unable to repeat the phrase "no ifs, ands, or buts" X 0/ While a full MMSE was not completed at this time, it is likely that the patient would not scored [id number] based on her present symptoms Results & Data Results & Data Vital Signs (Past 12 Hours) Vital Signs Temp Pulse Pulse Resp BP BP Pulse Ox 01/03/24 20:00 96 H 20 177/77 H 93 01/03/24 18:33 109 H 01/03/24 18:30 36.6 C 88 16 179/89 H 92 O2 Del Method 01/03/24 20:00 Room Air 01/03/24 18:33 01/03/24 18:30 Room Air Laboratory Results Abnormal lab results 01/03/24 01/03/24 Range/Units 19:03 20:13 WBC 14.05 H (4.8-10.8) K/ul RBC 4.16 L (4.20-5.40) M/uL Neut # (Auto) 10.83 H (1.40-6.50) K/uL Cache # (Auto) 1.37 H (0.11-0.59) K/uL VBG pH 7.48 H (7.36-7.41) VBG pCO2 35 L (38-50) mmHg BUN/Creatinine Ratio 20.6 H (10-20) Glucose 156 H (70-99(Fasting)) mg/dl AST 66 H (13-39) U/L Total Creatine Kinase 3126 H (26-192) U/L Globulin 2.3 L (2.5-4.0) gm/dl Urine Protein Trace H (Negative) Urine Glucose (UA) 2+ H (Negative) Urine Ketones Trace H (Negative) U Epithel Cells (Auto) 5-10 H (0-5) /lpf Salicylates < 3.0 L (3.0-30) mg/dl Acetaminophen < 3 L (10-30) ug/ml MDMA (Ecstasy) Screen Pos H (Neg) Diagnostic Findings Chest X-Ray 01/03/24 18:29 XR chest 1V portable CLINICAL HISTORY: ams TECHNIQUE: Single frontal radiograph of the chest was obtained. Comparison: Comparison is made to chest radiograph 01/01/2024 FINDINGS: Exam is limited by underpenetration. Cardiomegaly is noted. The lungs are clear. No evidence of pleural effusion or pneumothorax. IMPRESSION: No acute chest disease. ACT 112: Negative or not required by law. Electronically signed by: Vini Ennis M.D. 01/03/2024 7:[address] 01/03/24 18:29 Exam(s): CT HEAD Without Contrast EXAM: CT Head Without Intravenous Contrast CLINICAL HISTORY: Reason for exam: ams. TECHNIQUE: Axial computed tomography images of the head/brain without intravenous contrast. CTDI is 36.31 mGy and DLP is 546.36 mGy-cm. Automated exposure control was utilized for the study. A dose lowering technique was utilized adhering to the principles of ALARA. COMPARISON: 01/01/2024 FINDINGS: Brain: No hemorrhage, extra-axial fluid collection, mass effect, or edema. Ventricles: Unremarkable. Bones/joints: Unremarkable. No fracture. Soft tissues: Unremarkable. Sinuses: No acute sinusitis. Mastoid air cells: Unremarkable as visualized. IMPRESSION: 1. No acute intracranial abnormality. Electronically signed by: Omid Molina MD 01/03/24 19:48 PM Code Status & VTE Plan Code Status Full code (per ; patient does not exhibit capacity at this time) Please reassess CODE STATUS once patient gains capacity VTE Prophylaxis Plan VTE Prophylaxis will be ordered: Yes Supervising Physician Co-Signing Physician Notes Patient seen and examined, chart reviewed, case discussed with CHAYO Urbano and I agree with the assessment and plan as above. In brief, patient is a 68yo female presenting with change in mental status. Patient was recently admitted to [facility] on 01/01/24 for unresponsiveness thought to be secondary to ingestion of her 's opioid medication. She was managed with IV Narcan and subsequently a Narcan drip. She was ultimately discharged on 01/02/24. Her reports that she was confused on the day of discharge and was repeating herself and repeating some things that others were saying as well. She was discharged on Ciprofloxacin 500mg po BID x 5 days for treatment of a UTI. On exam patient is resting in bed. She appears agitated at times but is redirectable and able to answer questions and follow commands with repeated prompting. Oriented to person and location Skin - intact, no rash HEENT - MMM, Neck supple, PERRL Heart -S1/S2, regular, no m/r/g Lungs - CTA, no rales/rhonchi/wheezes Abd- +BS, soft, NT/ND Ext - warm, well perfused Neuro/Psych - patient agitated at times, able to answer questions. No tremor. Speech is clear. Inappropriate at times with periods of repetition, possibly echolalia for example, patient kept repeating "two gloves, two gloves, two tata ves" during my exam. Then repeating "green mask, green mask, green mask" and counting as well. No obvious facial asymmetry. CN II - XII grossly intact. Sensation to light touch intact. MS 5/5 in UE/LE bilaterally. Did not assess gait. No clonus or inducible clonus. No muscular rigidity. No nuchal rigidity Labs and images reviewed WBC=14.05 with elevation of neutrophils AST=66 OA=5206 MRI with no acute abnormality Assessment/Plan - AMS, confusion, agitation, repetitive speech/echolalia. Patient with no history of this in the past. Possibly delirium? ?Medication effects ?Infection. -Neuro checks -Psychiatry consultation and Neuro consultation appreciated -PT/OT evaluation -Will hold Cipro and Change to Ceftriaxone for continued treatment for UTI -May need LP if mental state fails to improve -Remainder as above PG Care Time/CCT Total # of Minutes Spent Total Time Spent with Patient: Total time spent is greater than 50% in coordination of care (as documented) at patient's floor/unit and/or counseling patient: [place] [address] INT INP/OBS CARE 3/75MIN Patient Type Established History Comprehensive Exam Comprehensive Medical Decision Making High Complexity Diagnoses AMS (altered mental status) R41.82 Altered mental status type: unspecified Leukocytosis D72.829 Rhabdomyolysis M62.82 Rhabdomyolysis type: non-traumatic Hypertension I10 HLD (hyperlipidemia) E78.5 (1) AMS (altered mental status) Altered mental status type: unspecified Qualified Code(s): R41.82 - Altered mental status, unspecified (3) Rhabdomyolysis Rhabdomyolysis type: non-traumatic Qualified Code(s): M62.82 - Rhabdomyolysis
[2024-01-03] MEDS ORDERED: PHARMACIST DISCHARGE MED REC CONSULT PRN (22:02)
--- NOTE | 2024-01-03 23:51 | Magnetic Resonance Report ---
Exam(s): MRI HEAD Without Contrast EXAM: MR Head Without Intravenous Contrast CLINICAL HISTORY: Reason for exam: Echolalia, AMS. TECHNIQUE: Magnetic resonance images of the head/brain without intravenous contrast in multiple planes. COMPARISON: Head CT 01/01/2024 and January 03, 2024 FINDINGS: Brain: No restricted diffusion. 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 No susceptibility artifact. No hemorrhage. No cerebral edema. Mild subcortical T2/flair hyperintensities consistent with chronic microvascular ischemic changes. Ventricles: Unremarkable. No ventriculomegaly. Bones/joints: Unremarkable. No acute fracture. Sinuses: Unremarkable as visualized. No acute sinusitis. Mastoid air cells: Unremarkable as visualized. No mastoid effusion. Orbits: Unremarkable as visualized. IMPRESSION: No acute abnormality. Electronically signed by: Omid Molina MD 01/03/24 23:50 PM
[2024-01-04] MEDS: PLASMA-LYTE A 1,000 ML IV SCH (00:06)
[2024-01-04] MEDS: LORazepam 1 MG/1 ML SYR ED Inj Use IV STA ×2 (00:41→04:16)
[2024-01-04] MEDS ORDERED: SUCRALFATE 1 GM TAB PO PRN (01:18)
[2024-01-04] MEDS ORDERED: ONDANSETRON INJ 2 MG/ML 2 ML VIAL IV PRN (01:18)
[2024-01-04] MEDS ORDERED: ACETAMINOPHEN 325 MG TAB PO PRN (01:18)
[2024-01-04] MEDS: HALOPERIDOL LACTATE 5 MG/ML 1 ML VIAL ONE (03:34)
[2024-01-04] MEDS: HALOPERIDOL LACTATE 5 MG/ML 1 ML VIAL IV STA (03:34)
[2024-01-04 08:41] LABS: Basophils # (auto) 0.05 K/uL (0.00-0.20); Basophils % (auto) 0.5 %; Eosinophils # (auto) 0.07 K/uL (0.00-0.50); Eosinophils % (auto) 0.6 %; Hematocrit (blood only) 35.4 % (37.0-47.0); Hemoglobin 11.9 g/dl (12.0-16.0); Immature Granulocytes # (auto) 0.06 K/uL (0.01-0.20); Immature Granulocytes % (auto) 0.5 %; Lymphocytes # (auto) 2.18 K/uL (1.20-3.40); Lymphocytes % (auto) 19.8 %; Mean Corpuscular Hemoglobin 31.1 pg (25.0-34.0); Mean Corpuscular Hgb Conc 33.6 g/dL (32.0-36.0); Mean Corpuscular Volume 92.4 fL (80.0-100.0); Mean Platelet Volume 11.3 fL (9.4-12.4); Monocytes % (auto) 9.1 %; Neutrophils # (auto) 7.67 K/uL (1.40-6.50); Neutrophils % (auto) 69.5 %; Platelet Count 309 K/uL (130-400); RDW Coefficient of Variation 12.3 % (11.5-14.5); RDW Standard Deviation 42.1 fL (36.4-46.3); Red Blood Count 3.83 M/uL (4.20-5.40); White Blood Count 11.03 K/ul (4.8-10.8)
--- NOTE | 2024-01-04 08:41 | Neurology Consultation ---
Date of Consultation January 04, 2024 Assessment & Plan (1) AMS (altered mental status): History of Present Illness Attending Physician: Mickey Martinez MD History of Present Illness this morning alert and stating she feels great. good interaction. NAD. pt able to answer questions well. no repeating herself. mri brain negative. UA negative. admission HPI: Sweta is a 68-year-old female with unknown PMH due to unavailable medical records. She returns to the ED with her (Patrick) for worsening confusion, agitation, incoherent thought processes, and echolalia since her discharge yesterday on 01/02. Patient was admitted to [facility] on 01/01 for unresponsiveness and presumed opiate ingestion; whether this was intentional or unintentional was yet to be determined. reports she was confused at time of discharge, and had never returned to her normal baseline. He reports that she would not last night, and was repeating things over and over again, and was making repetitive hand motions. Patient is a poor historian at time of admission. She exhibits incoherent thought processes, does not respond to questioning, and repeats phrases in echolalic fashion, such as "he took the mask off" x5. She also points out observations in her surroundings, such as "blue scrubs", "black hair", etc. Patient is hypertensive at 171/99 at time of admission. ED course: Lorazepam 1 mg IV x 2 NSS 1500 mL IV Patient is unable to reliably provide any ROS at this time. Potential PMH include hyperlipidemia, anxiety/depression, prior suicidality, substance use, HTN, PAD, HLD, depression, COPD, cirrhosis, muscle spasms, s/p stent placement in the legs/arms/left carotid. Allergies Allergy/AdvReac Type Severity Reaction Status Date / Time No Known Allergies Allergy Unverified 01/01/24 15:25 Home Medications Medication Instructions Recorded Confirmed Type amlodipine 5 mg tablet 5 mg PO QAM 01/01/24 01/03/24 History aspirin 81 mg tablet,delayed 81 mg PO DAILY 01/01/24 01/03/24 History release atorvastatin 20 mg tablet 20 mg PO DAILY 01/01/24 01/03/24 History baclofen 10 mg tablet 10 mg PO BID 01/01/24 01/03/24 History bupropion HCl 200 mg tablet,12 hr 200 mg PO BID 01/01/24 01/03/24 History sustained-release cholecalciferol (vitamin D3) 125 125 mcg PO DAILY 01/01/24 01/03/24 History mcg (5,000 unit) capsule clopidogrel 75 mg tablet 75 mg PO DAILY 01/01/24 01/03/24 History diclofenac sodium 75 mg 75 mg PO BID 01/01/24 01/03/24 History tablet,delayed release duloxetine 30 mg capsule,delayed 30 mg PO DAILY 01/01/24 01/03/24 History release duloxetine 60 mg capsule,delayed 60 mg PO DAILY 01/01/24 01/03/24 History release ezetimibe 10 mg tablet 10 mg PO DAILY 01/01/24 01/03/24 History fluticasone propionate 50 2 spray intranasal DAILY 01/01/24 01/03/24 History mcg/actuation nasal spray,suspension gabapentin 800 mg tablet 800 mg PO QID 01/01/24 01/03/24 History gemfibrozil 600 mg tablet 600 mg PO BID 01/01/24 01/03/24 History ipratropium 20 mcg-albuterol 100 1 puff inhalation QID PRN 01/01/24 01/03/24 History mcg/actuation mist for inhalation Shortness Of Breath Or Wheezing (Combivent Respimat) lisinopril 5 mg tablet 5 mg PO DAILY 01/01/24 01/03/24 History mirtazapine 15 mg tablet 15 mg PO HS 01/01/24 01/03/24 History oxybutynin chloride 5 mg tablet 5 mg PO BID 01/01/24 01/03/24 History pantoprazole 40 mg tablet,delayed 40 mg PO DAILY 01/01/24 01/03/24 History release potassium chloride 20 mEq 20 meq PO BID 01/01/24 01/03/24 History tablet,extended release(part/cryst) risperidone 2 mg tablet 2 mg PO QPM 01/01/24 01/03/24 History ropinirole 0.5 mg tablet 0.5 mg PO HS 01/01/24 01/03/24 History sucralfate 1 gram tablet 1 g PO QID PRN ABD DISCOMFORT 01/01/24 01/03/24 History ciprofloxacin HCl 500 mg tablet 500 mg PO BID 5 days #10 tabs 01/02/24 01/03/24 Rx Patient History Medical History Hypertension HLD (hyperlipidemia) Depression Tobacco abuse Social History Smoking Status: Current every day smoker Tobacco Type: Cigarettes Cigarettes Per Day: 60; Do You Dip or Chew Tobacco: No; Hx Alcohol Use: No Hx Substance Use: Yes Preferred Language: Canadian Communication Ability: Effective Radio Program Checker Required: No Beliefs That Will Affect Care: None Current Living Situation: Spouse Current Living Situation Comment: with Other Information That Helps Us Care for You: No Feels Safe at Home: Yes Assistive Devices: Denture - Upper and Denture - Lower Exam (Neuro) Physical Exam: HEENT: normocephalic Neuro: Mental: AOx4,pt knew donn alva, knew president Marce, she know about groundhog day. fluent speech, normal comprehension, no apraxia, no L/R confusion, no neglect CN: PERRL, Full EOM, symmetric face, intact sensation t/o face, midline T/U/P, 5/5 SCM/traps. Motor: No abnormal movements, normal tone and bulk, 5/5 t/o bilaterally Sens: intact to touch b/l grossly Coord: intact FNT b/l DTR: 2+ sym b/l Impression: 68 yo female with transient confusion in setting of recent UTI and metabolic disorder. MRI brain negative. Pt does have hx of polypharmacy for her psychiatric condition. Recent UTI, metabolic disorder, and specially the polypharmacy (psychiatric meds) likely contributing to her symptom. Pt appears to be back to her baseline. Recommendations: consider cutting back on neurontin and some of her psych meds (pt on 800mg neurontin, wellbutrin, cymbalta, risperidone, remeron). agree with psych consult. no further neuro work up needed. CK high likely from recent laying on ground for a period. call again if new question. Chart reviewed I have spent more than 50% educating patient about potential diagnosis and neurological evaluation and coordinating care with patient's treatment team. Total time spent (including chart review and coordination of care): 60 min (this includes chart review). Results & Data Vital Signs (Past 12 Hours) Vital Signs Pulse Pulse Resp BP Pulse Ox O2 Del Method O2 Flow Rate 01/04/24 07:17 69 01/04/24 04:59 71 20 97 Nasal Cannula 3 01/04/24 04:58 86 L 0 01/04/24 04:19 72 20 130/66 93 Room Air 01/04/24 01:49 103 H 01/04/24 01:26 90 20 147/96 H 94 Room Air 01/04/24 00:00 92 H 20 178/89 H 96 Room Air 01/03/24 22:48 87 01/03/24 22:00 92 H 20 171/99 H 94 Room Air PG Care Time/CCT Total # of Minutes Spent Total Time Spent with Patient: Total time spent is greater than 50% in coordination of care (as documented) at patient's floor/unit and/or counseling patient: Coding Level of Care Code 10482 IN/OBS CONSULT LVL 4,60M Diagnoses AMS (altered mental status) R41.82 Altered mental status type: unspecified (1) AMS (altered mental status) Altered mental status type: unspecified Qualified Code(s): R41.82 - Altered mental status, unspecified
[2024-01-04 08:57] LABS: BUN Creatinine Ratio 22.4 (10-20); Chol HDL Ratio 3.1 (0-5); Creatinine Clr Calc Pharmacy 81.8 ml/min; Est GFR (African American) 94.7 ml/min; Est GFR (Non-African American) 81.7 ml/min; Potassium 3.5 mmol/L (3.5-5.1)
[2024-01-04] MEDS ORDERED: GABAPENTIN 800 MG TAB PO SCH (09:00)
[2024-01-04 09:19] LABS: Estimated Average Glucose 169 mg/dl; Hemoglobin A1C 7.5 % (4.5-5.6)
[2024-01-04] MEDS: ENOXAPARIN INJ 40 MG/0.4 ML SYR SQ SCH (09:43)
[2024-01-04] MEDS: FLUTICASONE PROPIONATE NA SPR 16 GM BTL SCH (09:44)
[2024-01-04] MEDS: gemfibroziL 600 MG TAB PO SCH (09:45)
[2024-01-04] MEDS: lisinopril 5 MG TAB PO SCH (09:45)
[2024-01-04] MEDS: amLODIPine BESYLATE 5 MG TAB PO SCH (09:45)
[2024-01-04] MEDS: DULoxetine HCL 60 MG CAP PO SCH (09:45)
[2024-01-04] MEDS: EZETIMIBE 10 MG TAB PO SCH (09:45)
[2024-01-04] MEDS: CLOPIDOGREL BISULFATE 75 MG TAB PO SCH (09:45)
[2024-01-04] MEDS: BACLOFEN 10 MG TAB PO SCH (09:45)
[2024-01-04] MEDS: GABAPENTIN 600 MG TAB PO SCH (09:45)
[2024-01-04] MEDS: ASPIRIN 81 MG ECTAB PO SCH (09:45)
[2024-01-04] MEDS: DULoxetine HCL 30 MG CAP PO SCH (09:45)
[2024-01-04] MEDS: oxyBUTYnin chloride 5 MG TAB PO SCH (09:45)
[2024-01-04] MEDS: ATORVASTATIN 20 MG TAB PO SCH (09:45)
[2024-01-04] MEDS: PANTOprazole 40 MG TAB PO SCH (09:46)
[2024-01-04] MEDS: buPROPion SR 100 MG TABCR PO SCH (09:52)
--- NOTE | 2024-01-04 13:28 | Hospitalist Progress Note ---
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 Echocardiogram ordered, pending Opiates negative on arrival Salicylates, acetaminophen WNL MDMA screen positive in setting of Wellbutrin use Neurology on board. Did not recommend any further neurowork-up. Most likely related to polypharmacy. Patient is on gabapentin 800 mg p.o. 4 times daily. I reduced it to 600 mg p.o. 3 times daily for now. Awaiting further recommendations from psychiatry. Noted that bupropion has been held and Cymbalta dose has been reduced by psychiatry. Still on risperdal Fall precautions PT/OT consulted A.m. BMP, CBC, fasting lipid panel, A1c (2) Leukocytosis: Plan: UA negative on 01/03 However, UA positive on 01/01 and covered with Zosyn inpatient Patient was discharged on ciprofloxacin 500 mg p.o. BID x 5 days (only took 1 dose) Urine culture on 01/01 sensitive to Rocephin Will continue to cover with Rocephin 2000 mg IV q24h while inpatient (3) Rhabdomyolysis: Plan: CK elevated at 3126 Continue fluid resuscitation with Plasma-Lyte at 125mL/hr x2 RE-check AM CK level (4) Hypertension: Plan: Continue amlodipine (5) HLD (hyperlipidemia): Plan: Continue ezetimibe, atorvastatin Plan Disposition: Admit to PCU telemetry Full code Regular diet (aspiration precautions) VTE PPx: Lovenox 40mg SQ q24h Admission and Anticipated Discharge Date Admission Date: January 03, 2024 Subjective Patient feels well today. Noted that she is not repeating herself as much today. Although she is saying things that are slightly off. Review of Systems Review of Systems: All systems reviewed & are unremarkable except as noted in Subjective Physical Exam Physical Exam: General: Awake, conversant Heart: S1, S2/regular rate and rhythm, no murmur rubs or gallops Lungs: Clear to auscultation bilaterally. Normal effort Abdomen: Soft/nontender/nondistended. No hepatosplenomegaly Extremities: No clubbing/cyanosis. No edema Behavior: Appropriate, cooperative Results & Data Results & Data Vital Signs (Past 12 Hours) Vital Signs Pulse Pulse Resp BP Pulse Ox O2 Del Method O2 Flow Rate 01/04/24 07:17 69 01/04/24 04:59 71 20 97 Nasal Cannula 3 01/04/24 04:58 86 L 0 01/04/24 04:19 72 20 130/66 93 Room Air 01/04/24 01:49 103 H Laboratory Results Abnormal lab results 01/03/24 01/03/24 01/04/24 Range/Units 19:03 20:13 08:24 WBC 14.05 H 11.03 H (4.8-10.8) K/ul RBC 4.16 L 3.83 L (4.20-5.40) M/uL Hgb 11.9 L (12.0-16.0) g/dl Hct 35.4 L (37.0-47.0) % Neut # (Auto) 10.83 H 7.67 H (1.40-6.50) K/uL [place] # (Auto) 1.37 H 1.00 H (0.11-0.59) K/uL VBG pH 7.48 H (7.36-7.41) VBG pCO2 35 L (38-50) mmHg BUN/Creatinine Ratio 20.6 H 22.4 H (10-20) Glucose 156 H 120 H (70-99(Fasting)) mg/dl Hemoglobin A1c 7.5 H (4.5-5.6) % AST 66 H (13-39) U/L Total Creatine Kinase 3126 H 1963 H (26-192) U/L Globulin 2.3 L (2.5-4.0) gm/dl Triglycerides 246 H (0-150) mg/dl VLDL Cholesterol, Calc 49 H (0-30) mg/dl Urine Protein Trace H (Negative) Urine Glucose (UA) 2+ H (Negative) Urine Ketones Trace H (Negative) U Epithel Cells (Auto) 5-10 H (0-5) /lpf Salicylates < 3.0 L (3.0-30) mg/dl Acetaminophen < 3 L (10-30) ug/ml MDMA (Ecstasy) Screen Pos H (Neg) Diagnostic Findings Chest X-Ray 01/03/24 18:29 XR chest 1V portable CLINICAL HISTORY: ams TECHNIQUE: Single frontal radiograph of the chest was obtained. Comparison: Comparison is made to chest radiograph 01/01/2024 FINDINGS: Exam is limited by underpenetration. Cardiomegaly is noted. The lungs are clear. No evidence of pleural effusion or pneumothorax. IMPRESSION: No acute chest disease. ACT 112: Negative or not required by law. Electronically signed by: Vini Ennis M.D. 01/03/2024 7:[address] 01/03/24 18:29 Exam(s): CT HEAD Without Contrast EXAM: CT Head Without Intravenous Contrast CLINICAL HISTORY: Reason for exam: ams. TECHNIQUE: Axial computed tomography images of the head/brain without intravenous contrast. CTDI is 36.31 mGy and DLP is 546.36 mGy-cm. Automated exposure control was utilized for the study. A dose lowering technique was utilized adhering to the principles of ALARA. COMPARISON: 01/01/2024 FINDINGS: Brain: No hemorrhage, extra-axial fluid collection, mass effect, or edema. Ventricles: Unremarkable. Bones/joints: Unremarkable. No fracture. Soft tissues: Unremarkable. Sinuses: No acute sinusitis. Mastoid air cells: Unremarkable as visualized. IMPRESSION: 1. No acute intracranial abnormality. Electronically signed by: Omid Molina MD 01/03/24 19:48 PM Brain MRI 01/03/24 21:35 Exam(s): MRI HEAD Without Contrast EXAM: MR Head Without Intravenous Contrast CLINICAL HISTORY: Reason for exam: Echolalia, AMS. TECHNIQUE: Magnetic resonance images of the head/brain without intravenous contrast in multiple planes. COMPARISON: Head CT 01/01/2024 and January 03, 2024 FINDINGS: Brain: No restricted diffusion. 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 No susceptibility artifact. No hemorrhage. No cerebral edema. Mild subcortical T2/flair hyperintensities consistent with chronic microvascular ischemic changes. Ventricles: Unremarkable. No ventriculomegaly. Bones/joints: Unremarkable. No acute fracture. Sinuses: Unremarkable as visualized. No acute sinusitis. Mastoid air cells: Unremarkable as visualized. No mastoid effusion. Orbits: Unremarkable as visualized. IMPRESSION: No acute abnormality. Electronically signed by: Omid Molina MD 01/03/24 23:50 PM PG Care Time/CCT Total # of Minutes Spent Total Time Spent with Patient: Total time spent is greater than 50% in coordination of care (as documented) at patient's floor/unit and/or counseling patient: Coding Level of Care Code 57886 SUB INP/OBS CARE 2/35MIN Diagnoses AMS (altered mental status) R41.82 Altered mental status type: unspecified Leukocytosis D72.829 Rhabdomyolysis M62.82 Rhabdomyolysis type: non-traumatic Hypertension I10 HLD (hyperlipidemia) E78.5 (1) AMS (altered mental status) Altered mental status type: unspecified Qualified Code(s): R41.82 - Altered mental status, unspecified (3) Rhabdomyolysis Rhabdomyolysis type: non-traumatic Qualified Code(s): M62.82 - Rhabdomyolysis
--- NOTE | 2024-01-04 14:30 | Psychiatric Consultation ---
Date of Consultation January 04, 2024 Impression / Recommendations Impression 68 yo female with complex presentation given recent opiod OD with use of narcan with some degree of protracted withdrawal or other unspecified delirium with reported features of agitated catatonia upon presentation last pm. Patient with some symptoms to suggest mild serotonin syndrome with agitation, confusion, sensitivity to light, muscle twitching. Significant polypharmacy with likely ingestion of incorrect doses of 3 antidepressants. Unclear if depression has psychotic features at baseline or if she may have other diagnoses--will need collateral from as weekend and no records from current psychiatric prescriber at [facility] (Valentina Andrea). Doubt NMS given lack of rigidity, fever, and CPK minimally elevated/trending down. (1) AMS (altered mental status): Altered mental status type: unspecified Qualified Code(s): R41.82 - Altered mental status, unspecified (2) Depression: Plan case discussed with Dr. Martinez. Will hold Wellbutrin and monitor for seizure activity. Decrease Cymbalta from 90 mg by holding 60 mg only but continue 30 mg to minimize discontinuation syndrome. Hold Remeron. continue Risperdal 2 mg for now. Given level of disorganization and paranoia would prefer Haldol prn over Ativan unless more catatonic features reemerge. IV Haldol can be given if on monitor if unit nursing protocol allows (currently housed in ED) at 2 mg q 4 prn otherwise IM. if develops more lacrimation/rhinorrhea would suggest clonidine protocol. CPT Code Overall, I spent a total of 78 minutes with this case, including review of chart, direct evaluation of the patient, ordering medication, coordination with nursing,coordination of care with hospitalist service, and documentation. Psych History Identifying Data 68 yo female from [place], just discharged from [facility] following an unresponsive episode on 01/01 for Narcan drip for admitted opiod use ('s prescription). She returned to ED with ongoing confusion and consult is for "new onset echolalia." Chief Complaint "my meds are all messed up, that door is supposed to be closed". History of Present Illness On arrival to ED BP was elevated and had stroke w/u (MRI as last stay acute CT), was reportedly making perseverative comments that were nonsensical with odd jerking/repetitive hand movements. The patient became acutely agitated and received several doses of Ativan and Haldol. She has since been essentially cleared by neurology and is edgy but generally cooperative with care. As per liaison: Rounded on this patient due to a new consult. She was sitting upright in bed and spoke with nursing. She states that her has been taking care of his parents over the winter and had to move out of their home in order to be closer to them. This has caused the patient to be home alone more. It is unclear how well she mentates at baseline. She reports that she prepares her own medications and sometimes forgets how much of something to take. She makes unblinking, staring eye contact and frequently leaves her mouth ope n. She makes some repetitive comments, but they do not currently meet the metric of echolalia. She states that she does not need to use the call james she just has to yell and proceeds to yell the word "scream". She appears paranoid and reports that the RN is writing down her vital signs, hiding her phone and changing her jewelry, but not to trick her. She has some inattentiveness and gets lost during the conversation. She has a blunted affect. She is interested in med management, "My meds are all messed up." She says that her psychiatric providers are in the process of being changed. She reports a history of depression with inpatient psychiatric visits in [facility] "in the past." She reports taking her husbands morphine and her own hydrocodone recently to help her sleep. She takes care of her dogs at home. She also has guns in the home. It is unclear if they are secured. The patient did not want to be "bothered" but answered enough questions to confirm liaison history. She reported a hx of anxiety, depression, and panic. She denied a hx of psychosis and could not tell me the indication for her Risperdal. She admittedly "mixes up" her pills. She then stopped talking, closed her eyes, turned her head to the left and fluttering was noted for approximately 20 seconds. She then said the light burned her eyes. Allergies Allergy/AdvReac Type Severity Reaction Status Date / Time No Known Allergies Allergy Unverified 01/01/24 15:25 Home Medications Medication Instructions Recorded Confirmed Type amlodipine 5 mg tablet 5 mg PO QAM 01/01/24 01/03/24 History aspirin 81 mg tablet,delayed 81 mg PO DAILY 01/01/24 01/03/24 History release atorvastatin 20 mg tablet 20 mg PO DAILY 01/01/24 01/03/24 History baclofen 10 mg tablet 10 mg PO BID 01/01/24 01/03/24 History bupropion HCl 200 mg tablet,12 hr 200 mg PO BID 01/01/24 01/03/24 History sustained-release cholecalciferol (vitamin D3) 125 125 mcg PO DAILY 01/01/24 01/03/24 History mcg (5,000 unit) capsule clopidogrel 75 mg tablet 75 mg PO DAILY 01/01/24 01/03/24 History diclofenac sodium 75 mg 75 mg PO BID 01/01/24 01/03/24 History tablet,delayed release duloxetine 30 mg capsule,delayed 30 mg PO DAILY 01/01/24 01/03/24 History release duloxetine 60 mg capsule,delayed 60 mg PO DAILY 01/01/24 01/03/24 History release ezetimibe 10 mg tablet 10 mg PO DAILY 01/01/24 01/03/24 History fluticasone propionate 50 2 spray intranasal DAILY 01/01/24 01/03/24 History mcg/actuation nasal spray,suspension gabapentin 800 mg tablet 800 mg PO QID 01/01/24 01/03/24 History gemfibrozil 600 mg tablet 600 mg PO BID 01/01/24 01/03/24 History ipratropium 20 mcg-albuterol 100 1 puff inhalation QID PRN 01/01/24 01/03/24 History mcg/actuation mist for inhalation Shortness Of Breath Or Wheezing (Combivent Respimat) lisinopril 5 mg tablet 5 mg PO DAILY 01/01/24 01/03/24 History mirtazapine 15 mg tablet 15 mg PO HS 01/01/24 01/03/24 History oxybutynin chloride 5 mg tablet 5 mg PO BID 01/01/24 01/03/24 History pantoprazole 40 mg tablet,delayed 40 mg PO DAILY 01/01/24 01/03/24 History release potassium chloride 20 mEq 20 meq PO BID 01/01/24 01/03/24 History tablet,extended release(part/cryst) risperidone 2 mg tablet 2 mg PO QPM 01/01/24 01/03/24 History ropinirole 0.5 mg tablet 0.5 mg PO HS 01/01/24 01/03/24 History sucralfate 1 gram tablet 1 g PO QID PRN ABD DISCOMFORT 01/01/24 01/03/24 History ciprofloxacin HCl 500 mg tablet 500 mg PO BID 5 days #10 tabs 01/02/24 01/03/24 Rx Patient History Medical History Hypertension HLD (hyperlipidemia) Depression Tobacco abuse Social History Smoking Status: Current every day smoker Tobacco Type: Cigarettes Cigarettes Per Day: 60; Do You Dip or Chew Tobacco: No; Hx Alcohol Use: No Hx Substance Use: Yes Preferred Language: Uzbek Communication Ability: Effective Enrollment Consultant Required: No Beliefs That Will Affect Care: None Current Living Situation: Spouse Current Living Situation Comment: with Other Information That Helps Us Care for You: No Feels Safe at Home: Yes Assistive Devices: Denture - Upper and Denture - Lower Physical Exam Psychiatric: Orientation: alert and oriented to person Apperance: + disheveled Eye Contact: + poor eye contact Motor Behavior: + tremor Speech: normal rate/rhythm/volume of speech Affect: + anxious affect Mood: no depressed mood Thought Process: + tangential thought process Thought Content: + paranoid Suicidal Thoughts: denies suicidal thoughts Homicidal Thoughts: denies homicidal thoughts Hallucinations: no auditory hallucinations and no visual hallucinations Cognition: language grossly intact; + attention not intact Insight: + poor insight Judgment: + poor judgement Vital Signs (Past 24 Hours): Last Vital Signs Temp 36.6 C 01/03/24 18:30 Pulse 69 01/04/24 07:17 Resp 20 01/04/24 04:59 BP 130/66 01/04/24 04:19 Pulse Ox 97 01/04/24 04:59 O2 Del Method Nasal Cannula 01/04/24 04:59 O2 Flow Rate 3 01/04/24 04:59 Review of Systems Unobtainable due to cognitive status Results & Data (PSY) Laboratory Results 01/04/24 01/03/24 01/03/24 Range/Units 08:24 20:13 19:03 WBC 11.03 H 14.05 H (4.8-10.8) K/ul RBC 3.83 L 4.16 L (4.20-5.40) M/uL Hgb 11.9 L 12.9 (12.0-16.0) g/dl Hct 35.4 L 37.9 (37.0-47.0) % MCV 92.4 91.1 (80.0-100.0) fL MCH 31.1 31.0 (25.0-34.0) pg MCHC 33.6 34.0 (32.0-36.0) g/dL RDW Std Deviation 42.1 40.5 (36.4-46.3) fL RDW Coeff of Aishwarya 12.3 12.2 (11.5-14.5) % Plt Count 309 329 (130-400) K/uL MPV 11.3 11.4 (9.4-12.4) fL Immature Gran % (Auto) 0.5 0.5 % Neut % (Auto) 69.5 77.0 % Lymph % (Auto) 19.8 12.2 % [place] % (Auto) 9.1 9.8 % Eos % (Auto) 0.6 0.1 % Baso % (Auto) 0.5 0.4 % Neut # (Auto) 7.67 H 10.83 H (1.40-6.50) K/uL Lymph # (Auto) 2.18 1.72 (1.20-3.40) K/uL [place] # (Auto) 1.00 H 1.37 H (0.11-0.59) K/uL Eos # (Auto) 0.07 0.01 (0.00-0.50) K/uL Baso # (Auto) 0.05 0.05 (0.00-0.20) K/uL Immature Gran # (Auto) 0.06 0.07 (0.01-0.20) K/uL PT 10.6 (9.0-12.0) Seconds INR 1.0 (0.9-1.1) APTT 23 (21-31) Seconds PTT Ratio 0.8 VBG pH 7.48 H (7.36-7.41) VBG pCO2 35 L (38-50) mmHg VBG pO2 55 mmHg VBG HCO3 26 mmol/L VBG O2 Saturation 87.6 % VBG Base Excess 2.8 mEq/L Carboxyhemoglobin 1.9 % THgb Sodium 140 138 (136-145) mmol/L Potassium 3.5 3.5 D (3.5-5.1) mmol/L Chloride 106 103 (98-107) mmol/L Carbon Dioxide 24 24 (21-32) mmol/L Anion Gap 10 11 (3-11) BUN 17 20 (6-23) mg/dl Creatinine 0.76 0.97 D (0.6-1.2) mg/dl Est Cr Clr Drug Dosing 81.8 64.1 ml/min Est GFR ( Amer) 94.7 70.5 ml/min Est GFR (Non-Af Amer) 81.7 60.9 ml/min BUN/Creatinine Ratio 22.4 H 20.6 H (10-20) Glucose 120 H 156 H (70-99(Fasting)) mg/dl Estimat Average Glucose 169 mg/dl Hemoglobin A1c 7.5 H (4.5-5.6) % Calcium 9.0 10.0 (8.6-10.3) mg/dl Magnesium 1.7 (1.7-2.4) mg/dl Total Bilirubin 0.4 (0.2-1.0) mg/dl AST 66 H (13-39) U/L ALT 39 (7-52) U/L Alkaline Phosphatase 76 (34-104) U/L Ammonia 36.0 (18-72) umol/L Total Creatine Kinase 1963 H 3126 H (26-192) U/L Troponin I High Sens 6.1 (0-14) pg/ml Total Protein 6.7 (6.0-8.3) gm/dl Albumin 4.4 (3.4-5.0) gm/dl Globulin 2.3 L (2.5-4.0) gm/dl Albumin/Globulin Ratio 1.9 (0.9-2) Triglycerides 246 H (0-150) mg/dl Cholesterol 95 (0-200) mg/dl LDL Cholesterol, Calc 15 mg/dl VLDL Cholesterol, Calc 49 H (0-30) mg/dl HDL Cholesterol 31 mg/dl Cholesterol/HDL Ratio 3.1 (0-5) Lipase 38 (11-82) U/L Urine Color Yellow Urine Appearance Clear (Clear) Urine pH 5.5 (4.5-7.5) Ur Specific [place] 1.021 (1.000-1.030) Urine Protein Trace H (Negative) Urine Glucose (UA) 2+ H (Negative) Urine Ketones Trace H (Negative) Urine Blood Negative (Negative) Urine Nitrite Negative (Negative) Urine Bilirubin Negative (Negative) Urine Urobilinogen Negative (Negative) Ur Leukocyte Esterase Negative (Negative) Urine WBC (Auto) 1-5 (0-5) /hpf Urine RBC (Auto) 0-4 (0-4) /hpf U Hyaline Cast (Auto) 1-5 (0-5) /lpf U Epithel Cells (Auto) 5-10 H (0-5) /lpf Urine Bacteria (Auto) Negative (Negative) Salicylates < 3.0 L (3.0-30) mg/dl Urine Opiates Screen Neg (Neg) Ur Methadone, Qual Neg (Neg) Acetaminophen < 3 L (10-30) ug/ml Urine Barbiturates Neg (Neg) Ur Phencyclidine (PCP) Neg (Neg) U Amphetamin/Meth Scrn Neg (Neg) Urine MDEA Pending MDMA (Ecstasy) Screen Pos H (Neg) MDMA Pending Urine MDMA Pending U Benzodiazepines Scrn Neg (Neg) Ur Cocaine Metabolite Neg (Neg) U Marijuana (THC) Screen Neg (Neg) Ethyl Alcohol mg/dL < 10.0 (<10.0) mg/dl Medications Administered Amlodipine Besylate (Amlodipine Besylate 5 Mg Tab) 5 mg PO QAM [facility] Stop: 02/03/24 08:59 Last Admin: 01/04/24 09:45 Dose: 5 mg Documented By: OLIVER Aspirin (Aspirin 81 Mg Ectab) 81 mg PO DAILY [facility] Stop: 02/03/24 08:59 Last Admin: 01/04/24 09:45 Dose: 81 mg Documented By: OLIVER Atorvastatin Calcium (Atorvastatin 20 Mg Tab) 20 mg PO DAILY [facility] Stop: 02/03/24 08:59 Last Admin: 01/04/24 09:45 Dose: 20 mg Documented By: OLIVER Baclofen (Baclofen 10 Mg Tab) 10 mg PO BID [facility] Stop: 02/03/24 08:59 Last Admin: 01/04/24 09:45 Dose: 10 mg Documented By: OLIVER Bupropion HCl (Bupropion Sr 100 Mg Tabcr) 200 mg PO BID [facility] Stop: 02/03/24 08:59 Last Admin: 01/04/24 09:52 Dose: 200 mg Documented By: OLIVER Clopidogrel Bisulfate (Clopidogrel Bisulfate 75 Mg Tab) 75 mg PO DAILY [facility] Stop: 02/03/24 08:59 Last Admin: 01/04/24 09:45 Dose: 75 mg Documented By: OLIVER Duloxetine HCl (Duloxetine Hcl 60 Mg Cap) 60 mg PO DAILY [facility] Stop: 02/03/24 08:59 Last Admin: 01/04/24 09:45 Dose: 60 mg Documented By: OLIVER Duloxetine HCl (Duloxetine Hcl 30 Mg Cap) 30 mg PO DAILY [facility] Stop: 02/03/24 08:59 Last Admin: 01/04/24 09:45 Dose: 30 mg Documented By: OLIVER Ezetimibe (Ezetimibe 10 Mg Tab) 10 mg PO DAILY [facility] Stop: 02/03/24 08:59 Last Admin: 01/04/24 09:45 Dose: 10 mg Documented By: OLIVER Enoxaparin Sodium (Enoxaparin Inj 40 Mg/0.4 Ml Syr) 40 mg SQ Q24H [facility] Stop: 02/03/24 07:59 Last Admin: 01/04/24 09:43 Dose: 40 mg Documented By: OLIVER Fluticasone Propionate (Fluticasone Propionate Na Spr 16 Gm Btl) 2 sprays NA DAILY [facility] Stop: 02/03/24 08:59 Last Admin: 01/04/24 09:44 Dose: 2 sprays Documented By: OLIVER Gabapentin (Gabapentin 600 Mg Tab) 600 mg PO TID [facility] Stop: 02/03/24 08:59 Last Admin: 01/04/24 13:58 Dose: 600 mg Documented By: Admin: 01/04/24 09:45 Dose: 600 mg Documented By: OLIVER Gemfibrozil (Gemfibrozil 600 Mg Tab) 600 mg PO BID [facility] Stop: 02/03/24 08:59 Last Admin: 01/04/24 09:45 Dose: 600 mg Documented By: OLIVER Parenteral Electrolytes (Plasma-Lyte A Ph 7.4) 1,000 mls @ 125 mls/hr IV .Q8H [facility] Stop: 01/04/24 15:29 Last Admin: 01/04/24 09:43 Dose: 125 mls/hr Documented By: Infusion: 01/04/24 08:06 Dose: Infused Documented By: Admin: 01/04/24 00:06 Dose: 125 mls/hr Documented By: RUTHIE Lisinopril (Lisinopril 5 Mg Tab) 5 mg PO DAILY [facility] Stop: 02/03/24 08:59 Last Admin: 01/04/24 09:45 Dose: 5 mg Documented By: OLIVER Oxybutynin Chloride (Oxybutynin Chloride 5 Mg Tab) 5 mg PO BID [facility] Stop: 02/03/24 08:59 Last Admin: 01/04/24 09:45 Dose: 5 mg Documented By: OLIVER Pantoprazole Sodium (Pantoprazole 40 Mg Tab) 40 mg PO DAILY [facility] Stop: 02/03/24 08:59 Last Admin: 01/04/24 09:46 Dose: 40 mg Documented By: OLIVER Coding Level of Care Code 69221 [facility] Intl Hosp Care l 3 Diagnoses AMS (altered mental status) R41.82 Altered mental status type: unspecified Depression F32.A
[2024-01-04] MEDS: risperiDONE 2 MG TABLET PO SCH (20:54)
[2024-01-04] MEDS: cefTRIAXone SODIUM 2,000 MG in DEXTROSE 5 % MINI-B 50 ML IV SCH (20:56)
[2024-01-04] MEDS ORDERED: MIRTAZAPINE TAB 15 MG TAB PO SCH (21:00)
--- NOTE | 2024-01-05 06:09 | Electrocardiogram Report ---
Test Reason : Blood Pressure : / mmHG Vent. Rate : 092 BPM Atrial Rate : 092 BPM P-R Int : 120 ms QRS Dur : 076 ms QT Int : 364 ms P-R-T Axes : 031 003 028 degrees QTc Int : 450 ms Normal sinus rhythm Cannot rule out Inferior infarct , age undetermined Abnormal ECG When compared with ECG of 01-JAN-2024 13:27, No significant change Confirmed by Adal Glez ([id number]) on 01/05/2024 6:09:42 AM Referred By: REFERRED SELF Confirmed By:Adal Glez
[2024-01-05 06:14] LABS: Basophils # (auto) 0.06 K/uL (0.00-0.20); Basophils % (auto) 0.6 %; Eosinophils # (auto) 0.09 K/uL (0.00-0.50); Hematocrit (blood only) 32.5 % (37.0-47.0); Hemoglobin 11.3 g/dl (12.0-16.0); Immature Granulocytes # (auto) 0.06 K/uL (0.01-0.20); Immature Granulocytes % (auto) 0.6 %; Lymphocytes % (auto) 20.4 %; Mean Corpuscular Hemoglobin 31.3 pg (25.0-34.0); Mean Corpuscular Hgb Conc 34.8 g/dL (32.0-36.0); Mean Platelet Volume 11.5 fL (9.4-12.4); Monocytes # (auto) 0.85 K/uL (0.11-0.59); Monocytes % (auto) 9.1 %; Neutrophils # (auto) 6.35 K/uL (1.40-6.50); Neutrophils % (auto) 68.3 %; Platelet Count 285 K/uL (130-400); RDW Coefficient of Variation 11.9 % (11.5-14.5); Red Blood Count 3.61 M/uL (4.20-5.40); White Blood Count 9.31 K/ul (4.8-10.8)
[2024-01-05 06:33] LABS: BUN Creatinine Ratio 21.7 (10-20); Calcium 9.1 mg/dl (8.6-10.3); Creatinine Clr Calc Pharmacy 89.9 ml/min; Est GFR (African American) 105.1 ml/min; Est GFR (Non-African American) 90.7 ml/min; Potassium 3.3 mmol/L (3.5-5.1)
--- NOTE | 2024-01-05 12:31 | Psychiatric Progress Note ---
Date of Service January 05, 2024 Impression / Recommendations Impression as per 01/04/24: 68 yo female with complex presentation given recent opiod OD with use of narcan with some degree of protracted withdrawal or other unspecified delirium with reported features of agitated catatonia upon presentation last pm. Patient with some symptoms to suggest mild serotonin syndrome with agitation, confusion, sensitivity to light, muscle twitching. Significant polypharmacy with likely ingestion of incorrect doses of 3 antidepressants. Unclear if depression has psychotic features at baseline or if she may have other diagnoses--will need collateral from as weekend and no records from current psychiatric prescriber at [facility] (Valentina Andrea). Doubt NMS given lack of rigidity, fever, and CPK minimally elevated/trending down. recurrence of catatonic features last pm, more disorganized/blocked this am, with dyskinesias though her rocking could be due to abdominal cramping and she is not able to verbalize. (1) AMS (altered mental status): (2) Depression: Plan standing Ativan 1 mg TID IV for agitated catatonia and monitor gait, prn Haldol IM for psychosis 2 mg to start ordered as worried additional Ativan may impact gait as confused/up and down to bathroom. VS do not appear to indicate alcohol withdrawal Overall, I spent a total of 38 minutes with this case, including review of chart, direct evaluation of the patient, ordering medication, coordination with nursing, and documentation. Interval History Identifying Information 68 yo female from [place], just discharged from [facility] following an unresponsive episode on 01/01 for Narcan drip for admitted opiod use ('s prescription). Readmitted for confusion. Initial consult completed on 01/04/24. Chief Complaint "I don't want to see that, I want to see the football players". Review of Systems Notes patient unable to complete Subjective Subjective Patient was seen & assessed and interval progress reviewed with nursing. Patient has not been aggressive but remains confused, restless, with difficulty communicating needs to staff. She will often stop talking or stare or repeat phrases over and over. She is oriented only self and did pull out IV site. provided limited collateral to liaison, he is in and out of the home due to caring for his parents. He will remove guns and bring medications to be sorted/secured. Patient is a hoarder and has several dogs he is caring for. She has been misusing significant amount of medication. Physical Exam Psychiatric Orientation: alert (disoriented) Apperance: + disheveled Eye Contact: + poor eye contact Motor Behavior: + tremor restless with rocking of her pelvis/lower abdomen initially, some tongue movements Speech: + abnormal rate/rhythm/volume of speech (will halt speech) Affect: + anxious affect (is unable to describe her mood) Thought Process: + thought blocking and + looseness of associations Thought Content: + paranoid Hallucinations: + auditory hallucinations and + visual hallucinations Cognition: + attention not intact Insight: + severely impaired insight Judgment: + severely impaired judgement Vital Signs (Past 24 Hours) Last Vital Signs Temp 36.9 C 01/05/24 11:37 Pulse 79 01/05/24 11:37 Resp 18 01/05/24 11:37 BP 145/76 H 01/05/24 11:37 Pulse Ox 90 01/05/24 11:37 O2 Del Method Room Air 01/05/24 11:37 O2 Flow Rate 3 01/04/24 04:59 Results & Data ([facility]) Laboratory Results Laboratory Results - last 24 hr 01/05/24 05:14 WBC 9.31 RBC 3.61 L Hgb 11.3 L Hct 32.5 L MCV 90.0 MCH 31.3 MCHC 34.8 RDW Std Deviation 39.0 RDW Coeff of Aishwarya 11.9 Plt Count 285 MPV 11.5 Immature Gran % (Auto) 0.6 Neut % (Auto) 68.3 Lymph % (Auto) 20.4 Winn % (Auto) 9.1 Eos % (Auto) 1.0 Baso % (Auto) 0.6 Neut # (Auto) 6.35 Lymph # (Auto) 1.90 Winn # (Auto) 0.85 H Eos # (Auto) 0.09 Baso # (Auto) 0.06 Immature Gran # (Auto) 0.06 Sodium 139 Potassium 3.3 L Chloride 104 Carbon Dioxide 23 Anion Gap 12 H BUN 15 Creatinine 0.69 Est Cr Clr Drug Dosing 89.9 Est GFR ( Amer) 105.1 Est GFR (Non-Af Amer) 90.7 BUN/Creatinine Ratio 21.7 H Glucose 116 H Calcium 9.1 Current Inpatient Medications Current Inpatient Medications: Current Inpatient Medications Acetaminophen (Acetaminophen 325 Mg Tab) 650 mg PO Q4H PRN PRN Reason: Pain or Fever Stop: 02/03/24 01:17 Amlodipine Besylate (Amlodipine Besylate 5 Mg Tab) 5 mg PO QAM VIANEY Stop: 02/03/24 08:59 Last Admin: 01/05/24 08:18 Dose: 5 mg Aspirin (Aspirin 81 Mg Ectab) 81 mg PO DAILY VIANEY Stop: 02/03/24 08:59 Last Admin: 01/05/24 08:16 Dose: 81 mg Atorvastatin Calcium (Atorvastatin 20 Mg Tab) 20 mg PO DAILY VIANEY Stop: 02/03/24 08:59 Last Admin: 01/05/24 08:17 Dose: 20 mg Baclofen (Baclofen 10 Mg Tab) 10 mg PO BID VIANEY Stop: 02/03/24 08:59 Last Admin: 01/05/24 08:17 Dose: 10 mg Bupropion HCl (Bupropion Sr 100 Mg Tabcr) 200 mg PO BID VIANEY Stop: 02/03/24 08:59 Last Admin: 01/04/24 09:52 Dose: 200 mg Clopidogrel Bisulfate (Clopidogrel Bisulfate 75 Mg Tab) 75 mg PO DAILY VIANEY Stop: 02/03/24 08:59 Last Admin: 01/05/24 08:16 Dose: 75 mg Duloxetine HCl (Duloxetine Hcl 60 Mg Cap) 60 mg PO DAILY [facility] Stop: 02/03/24 08:59 Last Admin: 01/04/24 09:45 Dose: 60 mg Duloxetine HCl (Duloxetine Hcl 30 Mg Cap) 30 mg PO DAILY VIANEY Stop: 02/03/24 08:59 Last Admin: 01/05/24 08:17 Dose: 30 mg Ezetimibe (Ezetimibe 10 Mg Tab) 10 mg PO DAILY VIANEY Stop: 02/03/24 08:59 Last Admin: 01/05/24 08:17 Dose: 10 mg Enoxaparin Sodium (Enoxaparin Inj 40 Mg/0.4 Ml Syr) 40 mg SQ Q24H VIANEY Stop: 02/03/24 07:59 Last Admin: 01/05/24 08:15 Dose: 40 mg Fluticasone Propionate (Fluticasone Propionate Na Spr 16 Gm Btl) 2 sprays NA DAILY VIANEY Stop: 02/03/24 08:59 Last Admin: 01/05/24 10:15 Dose: 2 sprays Gabapentin (Gabapentin 600 Mg Tab) 600 mg PO TID VIANEY Stop: 02/03/24 08:59 Last Admin: 01/05/24 08:17 Dose: 600 mg Gemfibrozil (Gemfibrozil 600 Mg Tab) 600 mg PO BID VIANEY Stop: 02/03/24 08:59 Last Admin: 01/05/24 08:16 Dose: 600 mg Haloperidol Lactate (Haloperidol Lactate 5 Mg/Ml 1 Ml Vial) 2 mg IM Q4 PRN PRN Reason: Agitation Stop: 02/04/24 12:06 Ceftriaxone Sodium 2,000 mg/ (Dextrose) 50 mls @ 100 mls/hr IV Q24H VIANEY; Protocol Stop: 01/08/24 21:59 Last Infusion: 01/04/24 21:37 Dose: Infused Lorazepam 1 mg/ Syringe 1 mls @ 2 mls/min IV TID STA Stop: 01/05/24 12:07 Lisinopril (Lisinopril 5 Mg Tab) 5 mg PO DAILY VIANEY Stop: 02/03/24 08:59 Last Admin: 01/05/24 08:17 Dose: 5 mg Mirtazapine (Mirtazapine Tab 15 Mg Tab) 15 mg PO HS VIANEY Stop: 02/03/24 20:59 Ondansetron HCl (Ondansetron Inj 2 Mg/Ml 2 Ml Vial) 4 mg IV Q6H PRN PRN Reason: Nausea Stop: 02/03/24 01:17 Oxybutynin Chloride (Oxybutynin Chloride 5 Mg Tab) 5 mg PO BID VIANEY Stop: 02/03/24 08:59 Last Admin: 01/05/24 08:16 Dose: 5 mg Pantoprazole Sodium (Pantoprazole 40 Mg Tab) 40 mg PO DAILY VIANEY Stop: 02/03/24 08:59 Last Admin: 01/05/24 08:16 Dose: 40 mg Risperidone (Risperidone 2 Mg Tablet) 2 mg PO QPM VIANEY Stop: 02/03/24 20:59 Last Admin: 01/04/24 20:54 Dose: 2 mg Sucralfate (Sucralfate 1 Gm Tab) 1 gm PO QID PRN PRN Reason: ABD DISCOMFORT Stop: 02/03/24 01:17 (1) AMS (altered mental status) Altered mental status type: unspecified Qualified Code(s): R41.82 - Altered m ental status, unspecified
[2024-01-05] MEDS: LORazepam 1 MG in SYRINGE 0.5 ML IV SCH (13:11)
--- NOTE | 2024-01-05 13:18 | Hospitalist Progress Note ---
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 Echocardiogram ordered, pending Opiates negative on arrival Salicylates, acetaminophen WNL MDMA screen positive in setting of Wellbutrin use Neurology on board. Did not recommend any further neurowork-up. Most likely related to polypharmacy. Patient is on gabapentin 800 mg p.o. 4 times daily. I reduced it to 600 mg p.o. 3 times daily for now. Psychiatry on board. Held Wellbutrin. Reduce the dose of Cymbalta from 90-30. Discontinued Remeron. Still on risperdal Psychiatry ordered IV Ativan Fall precautions PT/OT consulted A.m. BMP, CBC (2) Leukocytosis: Plan: UA negative on 01/03 However, UA positive on 01/01 and covered with Zosyn inpatient Patient was discharged on ciprofloxacin 500 mg p.o. BID x 5 days (only took 1 dose) Urine culture on 01/01 sensitive to Rocephin Will continue to cover with Rocephin 2000 mg IV q24h while inpatient (3) Rhabdomyolysis: Plan: CK elevated at 3126 Continue fluid resuscitation with Plasma-Lyte at 125mL/hr x2 CK came down to the 1700s range (4) Hypertension: Plan: Continue amlodipine (5) HLD (hyperlipidemia): Plan: Continue ezetimibe, atorvastatin (6) Diabetes mellitus: Plan: A1c came back at 7.7 This is a new diagnosis of diabetes Will discharge her on metformin Starts sliding scale insulin now Carb controlled diet Plan Full code VTE PPx: Lovenox 40mg SQ q24h Admission and Anticipated Discharge Date Admission Date: January 03, 2024 Subjective Per nurse, the patient continues with echolalia. She is a little more hyperactive today. Restless at times. Having issues with catatonia at other times. Impulsive behaviors noted. The patient does not have any major complaints. She says that she feels well Review of Systems Review of Systems: Unobtainable due to mental health condition Physical Exam Physical Exam: General: Awake, conversant Heart: S1, S2/regular rate and rhythm, no murmur rubs or gallops Lungs: Clear to auscultation bilaterally. Normal effort Abdomen: Soft/nontender/nondistended. No hepatosplenomegaly Extremities: No clubbing/cyanosis. No edema Behavior: Appropriate, cooperative Results & Data Results & Data Vital Signs (Past 12 Hours) Vital Signs Temp Pulse Pulse Resp BP Pulse Ox O2 Del Method 01/05/24 11:37 36.9 C 79 18 145/76 H 90 Room Air 01/05/24 08:00 76 01/05/24 07:47 36.5 C 77 18 177/72 H 95 Room Air 01/05/24 04:04 36.8 C 83 16 179/70 H 98 Room Air PG Care Time/CCT Total # of Minutes Spent Total Time Spent with Patient: Total time spent is greater than 50% in coordination of care (as documented) at patient's floor/unit and/or counseling patient: Coding Level of Care Code 88398 SUB INP/OBS CARE 2/35MIN Diagnoses AMS (altered mental status) R41.82 Altered mental status type: unspecified Leukocytosis D72.829 Rhabdomyolysis M62.82 Rhabdomyolysis type: non-traumatic Hypertension I10 HLD (hyperlipidemia) E78.5 Diabetes mellitus E11.9 (1) AMS (altered mental status) Altered mental status type: unspecified Qualified Code(s): R41.82 - Altered mental status, unspecified (3) Rhabdomyolysis Rhabdomyolysis type: non-traumatic Qualified Code(s): M62.82 - Rhabdomyolysis
[2024-01-05] MEDS ORDERED: GLUCOSE 10 TAB/TUBE PO PRN (13:19)
[2024-01-05] MEDS ORDERED: GLUCAGON FOR INJ 1 MG VIAL SQ PRN (13:19)
[2024-01-05] MEDS ORDERED: CARBOHYDRATES FOR HYPOGLYCEMIA PO PRN (13:19)
[2024-01-05] MEDS ORDERED: DEXTROSE 50% 50 ML SYRINGE IV PRN (13:19)
[2024-01-05] MEDS ORDERED: GLUCOSE 40% GEL 15 GM TUBE PO PRN (13:19)
[2024-01-05] MEDS: HALOPERIDOL LACTATE 5 MG/ML 1 ML VIAL IM PRN ×2 (15:28→22:27)
[2024-01-05] MEDS: LORazepam 2 MG in SYRINGE 1 ML IV STA (16:52)
[2024-01-05] MEDS: INSULIN ASPART PER UNIT CHARGE SC SCH (16:57)
[2024-01-06] MEDS: LORazepam 1 MG in SYRINGE 0.5 ML IV STA (05:29)
[2024-01-06 09:11] LABS: Basophils # (auto) 0.06 K/uL (0.00-0.20); Basophils % (auto) 0.4 %; Eosinophils # (auto) 0.19 K/uL (0.00-0.50); Eosinophils % (auto) 1.4 %; Hematocrit (blood only) 36.4 % (37.0-47.0); Hemoglobin 12.6 g/dl (12.0-16.0); Immature Granulocytes # (auto) 0.07 K/uL (0.01-0.20); Immature Granulocytes % (auto) 0.5 %; Lymphocytes # (auto) 1.86 K/uL (1.20-3.40); Lymphocytes % (auto) 13.5 %; Mean Corpuscular Hemoglobin 31.1 pg (25.0-34.0); Mean Corpuscular Hgb Conc 34.6 g/dL (32.0-36.0); Mean Corpuscular Volume 89.9 fL (80.0-100.0); Mean Platelet Volume 11.3 fL (9.4-12.4); Monocytes % (auto) 7.2 %; Neutrophils # (auto) 10.64 K/uL (1.40-6.50); Platelet Count 308 K/uL (130-400); RDW Standard Deviation 39.4 fL (36.4-46.3); Red Blood Count 4.05 M/uL (4.20-5.40); White Blood Count 13.82 K/ul (4.8-10.8)
[2024-01-06 09:26] LABS: BUN Creatinine Ratio 21.3 (10-20); Calcium 9.4 mg/dl (8.6-10.3); Creatinine Clr Calc Pharmacy 77.6 ml/min; Est GFR (Non-African American) 76.8 ml/min; Potassium 3.8 mmol/L (3.5-5.1)
--- NOTE | 2024-01-06 16:01 | Hospitalist Progress Note ---
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 Echocardiogram ordered, pending Opiates negative on arrival Salicylates, acetaminophen WNL MDMA screen positive in setting of Wellbutrin use Neurology on board. Did not recommend any further neurowork-up. Most likely related to polypharmacy. Patient is on gabapentin 800 mg p.o. 4 times daily. I reduced it to 600 mg p.o. 3 times daily for now. Psychiatry on board. Held Wellbutrin. Reduce the dose of Cymbalta from 90-30. Discontinued Remeron. Still on risperdal Psychiatry ordered IV Ativan Fall precautions PT/OT consulted. Patient is ambulatory per PT/OT A.m. BMP, CBC (2) Leukocytosis: Plan: UA negative on 01/03 However, UA positive on 01/01 and covered with Zosyn inpatient Patient was discharged on ciprofloxacin 500 mg p.o. BID x 5 days (only took 1 dose) Urine culture on 01/01 sensitive to Rocephin Will continue to cover with Rocephin 2000 mg IV q24h while inpatient (3) Rhabdomyolysis: Plan: CK elevated at 3126 Continue fluid resuscitation with Plasma-Lyte at 125mL/hr x2 CK came down to the 1700s range (4) Hypertension: Plan: Continue amlodipine (5) HLD (hyperlipidemia): Plan: Continue ezetimibe, atorvastatin (6) Diabetes mellitus: Plan: A1c came back at 7.7 This is a new diagnosis of diabetes Will discharge her on metformin sliding scale insulin Carb controlled diet Plan Full code VTE PPx: Lovenox 40mg SQ q24h Admission and Anticipated Discharge Date Admission Date: January 03, 2024 Subjective Patient denies any chest pain or shortness of breath. But she is very emotional. Per nurse, she has been very emotionally labile, very impulsive Review of Systems Review of Systems: Unobtainable due to mental health condition Physical Exam Physical Exam: General: Awake, conversant, tearful Heart: S1, S2/regular rate and rhythm, no murmur rubs or gallops Lungs: Clear to auscultation bilaterally. Normal effort Abdomen: Soft/nontender/nondistended. No hepatosplenomegaly Extremities: No clubbing/cyanosis. No edema Behavior: Appropriate, cooperative Results & Data Results & Data Vital Signs (Past 12 Hours) Vital Signs Temp Pulse Pulse Resp BP Pulse Ox O2 Del Method 01/06/24 15:43 36.6 C 95 H 18 176/76 H 95 Room Air 01/06/24 10:55 36.7 C 94 H 18 153/71 H 95 Room Air 01/06/24 08:00 94 H 01/06/24 07:01 36.5 C 101 H 16 146/85 H 93 Room Air Laboratory Results Abnormal lab results 01/05/24 01/06/24 01/06/24 Range/Units 19:24 07:00 08:42 WBC 13.82 H (4.8-10.8) K/ul RBC 4.05 L (4.20-5.40) M/uL Hct 36.4 L (37.0-47.0) % Neut # (Auto) 10.64 H (1.40-6.50) K/uL Early # (Auto) 1.00 H (0.11-0.59) K/uL BUN/Creatinine Ratio 21.3 H (10-20) Glucose 180 H (70-99(Fasting)) mg/dl POC Glucose 100 H 214 H (70-99) mg/dl 01/06/24 Range/Units 11:29 WBC (4.8-10.8) K/ul RBC (4.20-5.40) M/uL Hct (37.0-47.0) % Neut # (Auto) (1.40-6.50) K/uL Early # (Auto) (0.11-0.59) K/uL BUN/Creatinine Ratio (10-20) Glucose (70-99(Fasting)) mg/dl POC Glucose 110 H (70-99) mg/dl PG Care Time/CCT Total # of Minutes Spent Total Time Spent with Patient: Total time spent is greater than 50% in coordination of care (as documented) at patient's floor/unit and/or counseling patient: Coding Level of Care Code 43385 SUB INP/OBS CARE 2MIN Diagnoses AMS (altered mental status) R41.82 Altered mental status type: unspecified Leukocytosis D72.829 Rhabdomyolysis M62.82 Rhabdomyolysis type: non-traumatic Hypertension I10 HLD (hyperlipidemia) E78.5 Diabetes mellitus E11.9 (1) AMS (altered mental status) Altered mental status type: unspecified Qualified Code(s): R41.82 - Altered mental status, unspecified (3) Rhabdomyolysis Rhabdomyolysis type: non-traumatic Qualified Code(s): M62.82 - Rhabdomyolysis
--- NOTE | 2024-01-06 16:20 | Psychiatric Progress Note ---
Date of Service January 06, 2024 Impression / Recommendations Impression as per 01/04/24: 68 yo female with complex presentation given recent opiod OD with use of narcan with some degree of protracted withdrawal or other unspecified delirium with reported features of agitated catatonia upon presentation last pm. Patient with some symptoms to suggest mild serotonin syndrome with agitation, confusion, sensitivity to light, muscle twitching. Significant polypharmacy with likely ingestion of incorrect doses of 3 antidepressants. Unclear if depression has psychotic features at baseline or if she may have other diagnoses--will need collateral from as weekend and no records from current psychiatric prescriber at [facility] [place] (Valentina Andrea). Doubt NMS given lack of rigidity, fever, and CPK minimally elevated/trending down. catatonic features resolving with Ativan, tolerating Haldol for breakthrough agitation. still waxing and waning/unpredictable. (1) AMS (altered mental status): (2) Depression: Plan continue to hold all antidepressants except Cymbalta 30 and has Risperdal 2 mg pm, signed DOUG for [facility] (awaiting records). Patient Has standing Ativan TID and Haldol prn, monitor for EPS and could use Cogentin as needed if develops, try to limit due to anticholinergic effects. Overall, I spent a total of 35 minutes with this case, including review of chart, direct evaluation of the patient, ordering medication, coordination with nursing, and documentation. Interval History Identifying Information 68 yo female from [place], just discharged from [facility] following an unresponsive episode on 01/01 for Narcan drip for admitted opiod use ('s prescription). Readmitted for confusion. Initial consult completed on 01/04/24. Chief Complaint "I just want to go home, if my can't come home I want a divorce." Review of Systems Notes see above Subjective Subjective Patient was seen & assessed and interval progress reviewed with nursing. has 1 on 1 for behavioral issues as aggressive/confrontational toward staff intermittently. Overall much less confused but labile mood--irritable than tearful with frequent fluctuations in MS. Admits that misuses medications, "lots of opiates and a ton of neurontin". She denies muscle rigidity. Physical Exam Psychiatric Orientation: alert, oriented to person and oriented to place Apperance: appropriately groomed Eye Contact: + fair eye contact Motor Behavior: + tremor (much less) Speech: + loud speech Affect: + anxious affect and + tearful affect Mood: no depressed mood Thought Process: + circumstantial thought process Thought Content: + paranoid Suicidal Thoughts: denies suicidal thoughts Homicidal Thoughts: denies homicidal thoughts Hallucinations: no auditory hallucinations and no visual hallucinations Cognition: language grossly intact; + attention not intact Insight: + poor insight Judgment: + poor judgement Vital Signs (Past 24 Hours) Last Vital Signs Temp 36.6 C 01/06/24 15:43 Pulse 95 H 01/06/24 15:43 Resp 18 01/06/24 15:43 BP 176/76 H 01/06/24 15:43 Pulse Ox 95 01/06/24 15:43 O2 Del Method Room Air 01/06/24 15:43 O2 Flow Rate 3 01/04/24 04:59 Results & Data ([facility]) Laboratory Results Laboratory Results - last 24 hr 01/05/24 01/06/24 01/06/24 19:24 07:00 08:42 WBC 13.82 H RBC 4.05 L Hgb 12.6 Hct 36.4 L MCV 89.9 MCH 31.1 MCHC 34.6 RDW Std Deviation 39.4 RDW Coeff of Aishwarya 12.0 Plt Count 308 MPV 11.3 Immature Gran % (Auto) 0.5 Neut % (Auto) 77.0 Lymph % (Auto) 13.5 Holmes % (Auto) 7.2 Eos % (Auto) 1.4 Baso % (Auto) 0.4 Neut # (Auto) 10.64 H Lymph # (Auto) 1.86 Holmes # (Auto) 1.00 H Eos # (Auto) 0.19 Baso # (Auto) 0.06 Immature Gran # (Auto) 0.07 Sodium 137 Potassium 3.8 Chloride 104 Carbon Dioxide 23 Anion Gap 10 BUN 17 Creatinine 0.80 Est Cr Clr Drug Dosing 77.6 Est GFR ( Amer) 89.0 Est GFR (Non-Af Amer) 76.8 BUN/Creatinine Ratio 21.3 H Glucose 180 H POC Glucose 100 H 214 H Calcium 9.4 01/06/24 11:29 WBC RBC Hgb Hct MCV MCH MCHC RDW Std Deviation RDW Coeff of Aishwarya Plt Count MPV Immature Gran % (Auto) Neut % (Auto) Lymph % (Auto) Holmes % (Auto) Eos % (Auto) Baso % (Auto) Neut # (Auto) Lymph # (Auto) Holmes # (Auto) Eos # (Auto) Baso # (Auto) Immature Gran # (Auto) Sodium Potassium Chloride Carbon Dioxide Anion Gap BUN Creatinine Est Cr Clr Drug Dosing Est GFR ( Amer) Est GFR (Non-Af Amer) BUN/Creatinine Ratio Glucose POC Glucose 110 H Calcium Current Inpatient Medications Current Inpatient Medications: Current Inpatient Medications Acetaminophen (Acetaminophen 325 Mg Tab) 650 mg PO Q4H PRN PRN Reason: Pain or Fever Stop: 02/03/24 01:17 Amlodipine Besylate (Amlodipine Besylate 5 Mg Tab) 5 mg PO QAM [facility] Stop: 02/03/24 08:59 Last Admin: 01/06/24 07:13 Dose: 5 mg Aspirin (Aspirin 81 Mg Ectab) 81 mg PO DAILY [facility] Stop: 02/03/24 08:59 Last Admin: 01/06/24 07:13 Dose: 81 mg Atorvastatin Calcium (Atorvastatin 20 Mg Tab) 20 mg PO DAILY [facility] Stop: 02/03/24 08:59 Last Admin: 01/06/24 07:12 Dose: 20 mg Baclofen (Baclofen 10 Mg Tab) 10 mg PO BID [facility] Stop: 02/03/24 08:59 Last Admin: 01/06/24 07:12 Dose: 10 mg Bupropion HCl (Bupropion Sr 100 Mg Tabcr) 200 mg PO BID [facility] Stop: 02/03/24 08:59 Last Admin: 01/04/24 09:52 Dose: 200 mg Clopidogrel Bisulfate (Clopidogrel Bisulfate 75 Mg Tab) 75 mg PO DAILY [facility] Stop: 02/03/24 08:59 Last Admin: 01/06/24 07:12 Dose: 75 mg Dextrose (Dextrose 50% 50 Ml Syringe) 25 - 50 ml IV UD PRN; Protocol PRN Reason: Hypoglycemia Protocol Stop: 02/04/24 13:18 Duloxetine HCl (Duloxetine Hcl 60 Mg Cap) 60 mg PO DAILY [facility] Stop: 02/03/24 08:59 Last Admin: 01/04/24 09:45 Dose: 60 mg Duloxetine HCl (Duloxetine Hcl 30 Mg Cap) 30 mg PO DAILY [facility] Stop: 02/03/24 08:59 Last Admin: 01/06/24 07:12 Dose: 30 mg Ezetimibe (Ezetimibe 10 Mg Tab) 10 mg PO DAILY [facility] Stop: 02/03/24 08:59 Last Admin: 01/06/24 07:13 Dose: 10 mg Enoxaparin Sodium (Enoxaparin Inj 40 Mg/0.4 Ml Syr) 40 mg SQ Q24H [facility] Stop: 02/03/24 07:59 Last Admin: 01/06/24 07:13 Dose: 40 mg Fluticasone Propionate (Fluticasone Propionate Na Spr 16 Gm Btl) 2 sprays NA DAILY [facility] Stop: 02/03/24 08:59 Last Admin: 01/06/24 07:19 Dose: 2 sprays Gabapentin (Gabapentin 600 Mg Tab) 600 mg PO TID [facility] Stop: 02/03/24 08:59 Last Admin: 01/06/24 13:47 Dose: 600 mg Gemfibrozil (Gemfibrozil 600 Mg Tab) 600 mg PO BID [facility] Stop: 02/03/24 08:59 Last Admin: 01/06/24 07:12 Dose: 600 mg Glucagon (Glucagon For Inj 1 Mg Vial) 1 mg SQ UD PRN; Protocol PRN Reason: Hypoglycemia Protocol Stop: 02/04/24 13:18 Glucose (Glucose 10 Tab/Tube) 4 - 8 tab PO UD PRN; Protocol PRN Reason: Hypoglycemia Treatment Stop: 02/04/24 13:18 Glucose (Glucose 40% Gel 15 Gm Tube) 15 - 30 gm PO UD PRN; Protocol PRN Reason: Hypoglycemia Protocol Stop: 02/04/24 13:18 Haloperidol Lactate (Haloperidol Lactate 5 Mg/Ml 1 Ml Vial) 5 mg IM Q4 PRN PRN Reason: agitation Stop: 02/04/24 16:50 Last Admin: 01/06/24 04:34 Dose: 5 mg Ceftriaxone Sodium 2,000 mg/ (Dextrose) 50 mls @ 100 mls/hr IV Q24H [facility]; Protocol Stop: 01/08/24 21:59 Last Infusion: 01/05/24 21:59 Dose: Infused Lorazepam 1 mg/ Syringe 1 mls @ 2 mls/min IV TID [facility] Stop: 02/04/24 12:29 Last Admin: 01/06/24 13:47 Dose: 2 mls/min Insulin Aspart (Insulin Aspart Per Unit Charge) 0 units SC ACHS [facility] Stop: 02/04/24 16:29 Last Admin: 01/06/24 11:46 Dose: Not Given Lisinopril (Lisinopril 5 Mg Tab) 5 mg PO DAILY [facility] Stop: 02/03/24 08:59 Last Admin: 01/06/24 07:11 Dose: 5 mg Mirtazapine (Mirtazapine Tab 15 Mg Tab) 15 mg PO HS [facility] Stop: 02/03/24 20:59 Miscellaneous (Carbohydrates For Hypoglycemia ) 15 - 30 gm PO UD PRN PRN Reason: Hypoglycemia Protocol Stop: 02/04/24 13:18 Ondansetron HCl (Ondansetron Inj 2 Mg/Ml 2 Ml Vial) 4 mg IV Q6H PRN PRN Reason: Nausea Stop: 02/03/24 01:17 Oxybutynin Chloride (Oxybutynin Chloride 5 Mg Tab) 5 mg PO BID [facility] Stop: 02/03/24 08:59 Last Admin: 01/06/24 07:11 Dose: 5 mg Pantoprazole Sodium (Pantoprazole 40 Mg Tab) 40 mg PO DAILY [facility] Stop: 02/03/24 08:59 Last Admin: 01/06/24 07:11 Dose: 40 mg Risperidone (Risperidone 2 Mg Tablet) 2 mg PO QPM [facility] Stop: 02/03/24 20:59 Last Admin: 01/05/24 20:12 Dose: 2 mg Sucralfate (Sucralfate 1 Gm Tab) 1 gm PO QID PRN PRN Reason: ABD DISCOMFORT Stop: 02/03/24 01:17 (1) AMS (altered mental status) Altered mental status type: unspecified Qualified Code(s): R41.82 - Altered mental status, unspecified
--- NOTE | 2024-01-07 15:53 | Psychiatric Progress Note ---
Date of Service January 07, 2024 Impression / Recommendations Impression as per 01/04/24: 68 yo female with complex presentation given recent opiod OD with use of narcan with some degree of protracted withdrawal or other unspecified delirium with reported features of agitated catatonia upon presentation last pm. Patient with some symptoms to suggest mild serotonin syndrome with agitation, confusion, sensitivity to light, muscle twitching. Significant polypharmacy with likely ingestion of incorrect doses of 3 antidepressants. Unclear if depression has psychotic features at baseline or if she may have other diagnoses--will need collateral from as weekend and no records from current psychiatric prescriber at [facility] (Valentina Andrea). Doubt NMS given lack of rigidity, fever, and CPK minimally elevated/trending down. catatonic features resolving with Ativan, tolerating Haldol for breakthrough agitation. still waxing and waning/unpredictable. (1) AMS (altered mental status): (2) Depression: Plan continue to hold all antidepressants except Cymbalta 30 and has Risperdal 2 mg pm, signed DOUG for [facility] (awaiting records). Patient Has standing Ativan TID and Haldol prn, but I am worried that she may start refusing her Ativan which may cause her to retreat more into catatonia again. Monitor for EPS and could use Cogentin as needed if develops, try to limit due to anticholinergic effects. Overall, I spent a total of 35 minutes with this case, including review of chart, direct evaluation of the patient, ordering medication, coordination with nursing, and documentation. Interval History Identifying Information 68 yo female from [place], just discharged from [facility] following an unresponsive episode on 01/01 for Narcan drip for admitted opiod use ('s prescription). Readmitted for confusion. Initial consult completed on 01/04/24. Chief Complaint " I am doing better." Subjective Subjective Today I met with the patient and had a treatment meeting with the liaison nurse. Sweta is still on a one-to-one for behavioral issues as she has been aggressive and confrontational with staff intermittently. When I entered the room, she was spending time with her just sitting on the side of the bed with him. He feels that she is definitely not at her baseline, but admits that she is doing better. Patient is telling me today that she does not want to use any IV Ativan because that is going to make her too sleepy. She also believes that many of the people here are "playing tricks on me." For example, she believes that the nursing staff are putting the wrong date and day of the week on her wall. She insist that she is doing great and can now walk around the unit and keep her mouth shut without talking. She thinks that is one of the conditions of being able to leave the hospital. obviously looks somewhat overwhelmed by how much she was talking and how much she was insisting that she is doing great. Physical Exam Psychiatric Orientation: alert, oriented to person and oriented to place; + not oriented to time Apperance: appropriately groomed and + disheveled Eye Contact: good eye contact Motor Behavior: + tremor (much less) Speech: + loud speech; + abnormal rate/rhythm/volume of speech (will halt speech) Affect: + anxious affect; no tearful affect Mood: no depressed mood Thought Process: + thought blocking, + circumstantial thought process, + tangential thought process and + looseness of associations Thought Content: + paranoid Suicidal Thoughts: denies suicidal thoughts Homicidal Thoughts: denies homicidal thoughts Hallucinations: no auditory hallucinations and no visual hallucinations Cognition: language grossly intact; + attention not intact Insight: + poor insight and + severely impaired insight Judgment: + poor judgement and + severely impaired judgement Vital Signs (Past 24 Hours) Last Vital Signs Temp 36.7 C 01/07/24 14:46 Pulse 102 H 01/07/24 14:46 Resp 20 01/07/24 14:46 BP 153/79 H 01/07/24 14:46 Pulse Ox 94 01/07/24 14:46 O2 Del Method Room Air 01/07/24 14:46 O2 Flow Rate 3 01/04/24 04:59 Results & Data ([facility]) Laboratory Results Laboratory Results - last 24 hr 01/06/24 01/06/24 01/07/24 16:57 20:02 07:42 POC Glucose 158 H 157 H 150 H 01/07/24 11:38 POC Glucose 136 H Current Inpatient Medications Current Inpatient Medications: Current Inpatient Medications Acetaminophen (Acetaminophen 325 Mg Tab) 650 mg PO Q4H PRN PRN Reason: Pain or Fever Stop: 02/03/24 01:17 Amlodipine Besylate (Amlodipine Besylate 5 Mg Tab) 5 mg PO QAM [facility] Stop: 02/03/24 08:59 Last Admin: 01/07/24 09:49 Dose: 5 mg Aspirin (Aspirin 81 Mg Ectab) 81 mg PO DAILY [facility] Stop: 02/03/24 08:59 Last Admin: 01/07/24 09:49 Dose: Not Given Atorvastatin Calcium (Atorvastatin 20 Mg Tab) 20 mg PO DAILY [facility] Stop: 02/03/24 08:59 Last Admin: 01/07/24 09:48 Dose: 20 mg Baclofen (Baclofen 10 Mg Tab) 10 mg PO BID [facility] Stop: 02/03/24 08:59 Last Admin: 01/07/24 09:49 Dose: 10 mg Bupropion HCl (Bupropion Sr 100 Mg Tabcr) 200 mg PO BID [facility] Stop: 02/03/24 08:59 Last Admin: 01/04/24 09:52 Dose: 200 mg Clopidogrel Bisulfate (Clopidogrel Bisulfate 75 Mg Tab) 75 mg PO DAILY [facility] Stop: 02/03/24 08:59 Last Admin: 01/07/24 09:47 Dose: 75 mg Dextrose (Dextrose 50% 50 Ml Syringe) 25 - 50 ml IV UD PRN; Protocol PRN Reason: Hypoglycemia Protocol Stop: 02/04/24 13:18 Duloxetine HCl (Duloxetine Hcl 60 Mg Cap) 60 mg PO DAILY [facility] Stop: 02/03/24 08:59 Last Admin: 01/04/24 09:45 Dose: 60 mg Duloxetine HCl (Duloxetine Hcl 30 Mg Cap) 30 mg PO DAILY [facility] Stop: 02/03/24 08:59 Last Admin: 01/07/24 09:46 Dose: 30 mg Ezetimibe (Ezetimibe 10 Mg Tab) 10 mg PO DAILY [facility] Stop: 02/03/24 08:59 Last Admin: 01/07/24 09:45 Dose: 10 mg Enoxaparin Sodium (Enoxaparin Inj 40 Mg/0.4 Ml Syr) 40 mg SQ Q24H [facility] Stop: 02/03/24 07:59 Last Admin: 01/07/24 09:15 Dose: Not Given Fluticasone Propionate (Fluticasone Propionate Na Spr 16 Gm Btl) 2 sprays NA DAILY [facility] Stop: 02/03/24 08:59 Last Admin: 01/07/24 09:50 Dose: 2 sprays Gabapentin (Gabapentin 600 Mg Tab) 600 mg PO TID [facility] Stop: 02/03/24 08:59 Last Admin: 01/07/24 12:57 Dose: 600 mg Gemfibrozil (Gemfibrozil 600 Mg Tab) 600 mg PO BID [facility] Stop: 02/03/24 08:59 Last Admin: 01/07/24 09:46 Dose: 600 mg Glucagon (Glucagon For Inj 1 Mg Vial) 1 mg SQ UD PRN; Protocol PRN Reason: Hypoglycemia Protocol Stop: 02/04/24 13:18 Glucose (Glucose 10 Tab/Tube) 4 - 8 tab PO UD PRN; Protocol PRN Reason: Hypoglycemia Treatment Stop: 02/04/24 13:18 Glucose (Glucose 40% Gel 15 Gm Tube) 15 - 30 gm PO UD PRN; Protocol PRN Reason: Hypoglycemia Protocol Stop: 02/04/24 13:18 Haloperidol Lactate (Haloperidol Lactate 5 Mg/Ml 1 Ml Vial) 5 mg IM Q4 PRN PRN Reason: agitation Stop: 02/04/24 16:50 Last Admin: 01/06/24 04:34 Dose: 5 mg Ceftriaxone Sodium 2,000 mg/ (Dextrose) 50 mls @ 100 mls/hr IV Q24H [facility]; Protoc ol Stop: 01/08/24 21:59 Last Infusion: 01/06/24 21:16 Dose: Infused Lorazepam 1 mg/ Syringe 1 mls @ 2 mls/min IV TID [facility] Stop: 02/04/24 12:29 Last Admin: 01/07/24 12:57 Dose: Not Given Insulin Aspart (Insulin Aspart Per Unit Charge) 0 units SC ACHS [facility] Stop: 02/04/24 16:29 Last Admin: 01/07/24 11:59 Dose: Not Given Lisinopril (Lisinopril 5 Mg Tab) 5 mg PO DAILY [facility] Stop: 02/03/24 08:59 Last Admin: 01/07/24 09:47 Dose: 5 mg Mirtazapine (Mirtazapine Tab 15 Mg Tab) 15 mg PO HS [facility] Stop: 02/03/24 20:59 Miscellaneous (Carbohydrates For Hypoglycemia ) 15 - 30 gm PO UD PRN PRN Reason: Hypoglycemia Protocol Stop: 02/04/24 13:18 Ondansetron HCl (Ondansetron Inj 2 Mg/Ml 2 Ml Vial) 4 mg IV Q6H PRN PRN Reason: Nausea Stop: 02/03/24 01:17 Oxybutynin Chloride (Oxybutynin Chloride 5 Mg Tab) 5 mg PO BID [facility] Stop: 02/03/24 08:59 Last Admin: 01/07/24 09:45 Dose: 5 mg Pantoprazole Sodium (Pantoprazole 40 Mg Tab) 40 mg PO DAILY [facility] Stop: 02/03/24 08:59 Last Admin: 01/07/24 09:48 Dose: 40 mg Risperidone (Risperidone 2 Mg Tablet) 2 mg PO QPM [facility] Stop: 02/03/24 20:59 Last Admin: 01/06/24 20:18 Dose: 2 mg Sucralfate (Sucralfate 1 Gm Tab) 1 gm PO QID PRN PRN Reason: ABD DISCOMFORT Stop: 02/03/24 01:17 (1) AMS (altered mental status) Altered mental status type: unspecified Qualified Code(s): R41.82 - Altered mental status, unspecified
--- NOTE | 2024-01-07 16:38 | Hospitalist Progress Note ---
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 Echocardiogram ordered, pending Opiates negative on arrival Salicylates, acetaminophen WNL MDMA screen positive in setting of Wellbutrin use Neurology on board. Did not recommend any further neurowork-up. Most likely related to polypharmacy. Patient was on gabapentin 800 mg p.o. 4 times daily. I reduced it to 600 mg p.o. 3 times daily for now. Psychiatry on board. Held Wellbutrin. Reduce the dose of Cymbalta from 90-30. Discontinued Remeron. Still on risperdal Psychiatry ordered IV Ativan Fall precautions PT/OT consulted. Patient is ambulatory per PT/OT A.m. BMP, CBC (2) Leukocytosis: Plan: UA negative on 01/03 However, UA positive on 01/01 and covered with Zosyn inpatient Patient was discharged on ciprofloxacin 500 mg p.o. BID x 5 days (only took 1 dose) Urine culture on 01/01 grew E. coli sensitive to Rocephin Will continue to cover with Rocephin 2000 mg IV q24h while inpatient (3) Rhabdomyolysis: Plan: CK elevated at 3126 Continue fluid resuscitation with Plasma-Lyte at 125mL/hr x2 CK came down to the 1700s range (4) Hypertension: Plan: Continue amlodipine (5) HLD (hyperlipidemia): Plan: Continue ezetimibe, atorvastatin (6) Diabetes mellitus: Plan: A1c came back at 7.7 This is a new diagnosis of diabetes Will discharge her on metformin sliding scale insulin Carb controlled diet Plan Full code VTE PPx: Lovenox 40mg SQ q24h Admission and Anticipated Discharge Date Admission Date: January 03, 2024 Subjective Patient seem to be in good spirits during my encounter today. Did not have any new complaints. Denies chest pain or shortness of breath. Review of Systems Review of Systems: Unobtainable due to mental health condition Physical Exam Physical Exam: General: Awake, conversant, smiling Heart: S1, S2/regular rate and rhythm, no murmur rubs or gallops Lungs: Clear to auscultation bilaterally. Normal effort Abdomen: Soft/nontender/nondistended. No hepatosplenomegaly Extremities: No clubbing/cyanosis. No edema Behavior: Appropriate, cooperative Results & Data Results & Data Vital Signs (Past 12 Hours) Vital Signs Temp Pulse Resp BP Pulse Ox O2 Del Method 01/07/24 14:46 36.7 C 102 H 20 153/79 H 94 Room Air 01/07/24 11:08 36.7 C 94 H 17 162/83 H 94 Room Air 01/07/24 07:53 36.5 C 104 H 18 128/84 95 Room Air Laboratory Results Abnormal lab results 01/06/24 01/06/24 01/07/24 Range/Units 16:57 20:02 07:42 POC Glucose 158 H 157 H 150 H (70-99) mg/dl 01/07/24 Range/Units 11:38 POC Glucose 136 H (70-99) mg/dl PG Care Time/CCT Total # of Minutes Spent Total Time Spent with Patient: Total time spent is greater than 50% in coordination of care (as documented) at patient's floor/unit and/or counseling patient: Coding Level of Care Code 79443 SUB INP/OBS CARE 2/35MIN Diagnoses AMS (altered mental status) R41.82 Altered mental status type: unspecified Leukocytosis D72.829 Rhabdomyolysis M62.82 Rhabdomyolysis type: non-traumatic Hypertension I10 HLD (hyperlipidemia) E78.5 Diabetes mellitus E11.9 (1) AMS (altered mental status) Altered mental status type: unspecified Qualified Code(s): R41.82 - Altered mental status, unspecified (3) Rhabdomyolysis Rhabdomyolysis type: non-traumatic Qualified Code(s): M62.82 - Rhabdomyolysis
--- NOTE | 2024-01-08 14:05 | Hospitalist Progress Note ---
Date of Service January 08, 2024 Assessment & Plan (1) AMS (altered mental status): Plan: Metabolic encephalopathy versus toxic encephalopathy Patient returns for worsening confusion, echolalia, and incoherent thought processes since her discharge on 01/02 She was at [facility] for an unresponsive episode on 01/01; opiates+ patient was placed on IV Narcan drip Brain MRI was not obtained prior to previous discharge Head CT revealed NAF CXR NAF Imaging on 01/01: Head CT revealed a small age-indeterminate infarct in the left cerebellar hemisphere that required MRI for further assessment Head CTA revealed 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 Opiates negative on arrival Salicylates, acetaminophen WNL MDMA screen positive in setting of Wellbutrin use Neurology on board. Did not recommend any further neurowork-up. Most likely related to polypharmacy. Patient was on gabapentin 800 mg p.o. 4 times daily. I reduced it to 600 mg p.o. 3 times daily for now. Psychiatry on board. Held Wellbutrin. Reduced the dose of Cymbalta from 90-30. Discontinued Remeron. Still on risperdal Psychiatry ordered IV Ativan Fall precautions PT/OT consulted. Patient is ambulatory per PT/OT A.m. BMP, CBC (2) Leukocytosis: Plan: UA negative on 01/03 However, UA positive on 01/01 and covered with Zosyn inpatient Patient was discharged on ciprofloxacin 500 mg p.o. BID x 5 days (only took 1 dose) Urine culture on 01/01 grew E. coli sensitive to Rocephin Will continue to cover with Rocephin 2000 mg IV q24h while inpatient (3) Rhabdomyolysis: Plan: CK elevated at 3126 Continue fluid resuscitation with Plasma-Lyte at 125mL/hr x2 CK came down to the 1700s range Recheck CK in a.m. to ensure resolution (4) Hypertension: Plan: Continue amlodipine (5) HLD (hyperlipidemia): Plan: Continue ezetimibe, atorvastatin (6) Diabetes mellitus: Plan: A1c came back at 7.7 This is a new diagnosis of diabetes Will discharge her on metformin sliding scale insulin Carb controlled diet Plan Full code VTE PPx: Lovenox 40mg SQ q24h Admission and Anticipated Discharge Date Admission Date: January 03, 2024 Subjective Patient is awake and alert. Sitter in the room. Review of Systems Review of Systems: Unobtainable due to mental health condition Physical Exam Physical Exam: General: Awake, conversant, smiling. Slightly more talkative today Heart: S1, S2/regular rate and rhythm, no murmur rubs or gallops Lungs: Clear to auscultation bilaterally. Normal effort Abdomen: Soft/nontender/nondistended. No hepatosplenomegaly Extremities: No clubbing/cyanosis. No edema Behavior: Appropriate, cooperative Results & Data Results & Data Vital Signs (Past 12 Hours) Vital Signs Pulse Resp BP Pulse Ox O2 Del Method 01/08/24 07:13 98 H 18 141/75 H 93 Room Air PG Care Time/CCT Total # of Minutes Spent Total Time Spent with Patient: Total time spent is greater than 50% in coordination of care (as documented) at patient's floor/unit and/or counseling patient: Coding Level of Care Code 23386 SUB INP/OBS CARE 2/35MIN Diagnoses AMS (altered mental status) R41.82 Altered mental status type: unspecified Leukocytosis D72.829 Rhabdomyolysis M62.82 Rhabdomyolysis type: non-traumatic Hypertension I10 HLD (hyperlipidemia) E78.5 Diabetes mellitus E11.9 (1) AMS (altered mental status) Altered mental status type: unspecified Qualified Code(s): R41.82 - Altered mental status, unspecified (3) Rhabdomyolysis Rhabdomyolysis type: non-traumatic Qualified Code(s): M62.82 - Rhabdomyolysis
[2024-01-08 15:48] LABS: MDA negative; MDEA negative; MDMA (Ecstasy) Urine, Confirm negative
[2024-01-08] MEDS: risperiDONE 3 MG TABLET PO SCH (22:52)
--- NOTE | 2024-01-09 15:30 | Psychiatric Progress Note ---
Date of Service January 09, 2024 Impression / Recommendations Impression as per 01/04/24: 68 yo female with complex presentation given recent opiod OD with use of narcan with some degree of protracted withdrawal or other unspecified delirium with reported features of agitated catatonia upon presentation last pm. Patient with some symptoms to suggest mild serotonin syndrome with agitation, confusion, sensitivity to light, muscle twitching. Significant polypharmacy with likely ingestion of incorrect doses of 3 antidepressants. Unclear if depression has psychotic features at baseline or if she may have other diagnoses--will need collateral from as weekend and no records from current psychiatric prescriber at [facility] [place] (Valentina Andrea). Doubt NMS given lack of rigidity, fever, and CPK minimally elevated/trending down. catatonic features resolved with Ativan, but are returning now that she has stopped it. She is tolerating Haldol for breakthrough agitation. still waxing and waning/unpredictable. (1) AMS (altered mental status): (2) Depression: Plan Patient is refusing all meds at this point. The psychiatric nurse liaison will petition and we will move toward a 302. If she continues to refuse to eat or drink, she will quickly deteriorate medically. Lorazepam may be the only thing that brings her out of this and we may have to force her to take it IM or IV. For now, we will offer Cymbalta 30 mg and Risperdal 3 mg pm (increased yesterday). Patient Has standing Ativan TID and Haldol prn. Monitor for EPS and could use Cogentin as needed if develops, try to limit due to anticholinergic effects. Overall, I spent a total of 55 minutes with this case, including review of chart, direct evaluation of the patient, ordering medication, coordination with nursing, and documentation. Suicide Risk Level Suicide Risk Level Comments: We will continue with 1:1 for safety on the medical unit. Interval History Identifying Information 68 yo female from [place], just discharged from [facility] following an unresponsive episode on 01/01 for Narcan drip for admitted opiod use ('s prescription). Readmitted for confusion. Initial consult completed on 01/04/24. Chief Complaint Patient is non-verbal. Subjective Subjective Today I met with the patient and with her one-to-one. I also discussed the case with Dr. Prakash. The patient is in our hospital due to concerns of paranoia and catatonia. She was doing better with the help of lorazepam, but 2 days ago, she stopped taking it and it started to deteriorate again. When I went in to meet with her she was just laying in the bed looking at me but not speaking. The one-to-one says that she has not been eating or drinking today since they got on shift around 7 AM. Earlier in the day, with the nurse liaison, she was shaking her head no to some of the questions, but when I met with her she would not say a word or even move her head. I also found out that she had been getting services through [facility] in [place]. That was her location for outpatient services. She was getting 3 medications: Bupropion SR 200 mg, mirtazapine 15 mg, and risperidone 2 mg. She has an appointment scheduled with Dr. Archuleta via telemedicine on February 26, 2024 at 9 AM. Physical Exam Psychiatric Orientation: alert Apperance: appropriately groomed and + disheveled Eye Contact: good eye contact Motor Behavior: + tremor (much less) Speech: + mute Affect: + angry affect Mood: no depressed mood Thought Process: + thought blocking Thought Content: + paranoid nonverbal so can't assess nonverbal so can't assess Hallucinations: no auditory hallucinations and no visual hallucinations nonverbal Insight: + poor insight and + severely impaired insight Judgment: + poor judgement and + severely impaired judgement Vital Signs (Past 24 Hours) Last Vital Signs Temp 36.2 C L 01/08/24 20:56 Pulse 81 01/08/24 20:56 Resp 16 01/09/24 08:38 BP 178/71 H 01/09/24 08:38 Pulse Ox 96 01/08/24 20:56 O2 Del Method Room Air 01/08/24 20:56 O2 Flow Rate 3 01/04/24 04:59 Results & Data ([facility]) Laboratory Results Laboratory Results - last 24 hr 01/03/24 01/08/24 01/09/24 20:13 21:23 07:58 POC Glucose 148 H 147 H Total Creatine Kinase Urine MDEA negative MDMA negative Urine MDMA negative 01/09/24 01/09/24 11:16 14:53 POC Glucose 120 H Total Creatine Kinase 97 Urine MDEA MDMA Urine MDMA Current Inpatient Medications Current Inpatient Medications: Current Inpatient Medications Acetaminophen (Acetaminophen 325 Mg Tab) 650 mg PO Q4H PRN PRN Reason: Pain or Fever Stop: 02/03/24 01:17 Amlodipine Besylate (Amlodipine Besylate 5 Mg Tab) 5 mg PO QAM VIANEY Stop: 02/03/24 08:59 Last Admin: 01/09/24 09:19 Dose: Not Given Aspirin (Aspirin 81 Mg Ectab) 81 mg PO DAILY VIANEY Stop: 02/03/24 08:59 Last Admin: 01/09/24 09:19 Dose: Not Given Atorvastatin Calcium (Atorvastatin 20 Mg Tab) 20 mg PO DAILY VIANEY Stop: 02/03/24 08:59 Last Admin: 01/09/24 09:19 Dose: Not Given Baclofen (Baclofen 10 Mg Tab) 10 mg PO BID VIANEY Stop: 02/03/24 08:59 Last Admin: 01/09/24 09:19 Dose: Not Given Bupropion HCl (Bupropion Sr 100 Mg Tabcr) 200 mg PO BID VIANEY Stop: 02/03/24 08:59 Last Admin: 01/04/24 09:52 Dose: 200 mg Clopidogrel Bisulfate (Clopidogrel Bisulfate 75 Mg Tab) 75 mg PO DAILY VIANEY Stop: 02/03/24 08:59 Last Admin: 01/09/24 09:19 Dose: Not Given Dextrose (Dextrose 50% 50 Ml Syringe) 25 - 50 ml IV UD PRN; Protocol PRN Reason: Hypoglycemia Protocol Stop: 02/04/24 13:18 Duloxetine HCl (Duloxetine Hcl 60 Mg Cap) 60 mg PO DAILY VIANEY Stop: 02/03/24 08:59 Last Admin: 01/04/24 09:45 Dose: 60 mg Duloxetine HCl (Duloxetine Hcl 30 Mg Cap) 30 mg PO DAILY VIANEY Stop: 02/03/24 08:59 Last Admin: 01/09/24 09:20 Dose: Not Given Ezetimibe (Ezetimibe 10 Mg Tab) 10 mg PO DAILY VIANEY Stop: 02/03/24 08:59 Last Admin: 01/09/24 09:20 Dose: Not Given Enoxaparin Sodium (Enoxaparin Inj 40 Mg/0.4 Ml Syr) 40 mg SQ Q24H VIANEY Stop: 02/03/24 07:59 Last Admin: 01/09/24 09:19 Dose: Not Given Fluticasone Propionate (Fluticasone Propionate Na Spr 16 Gm Btl) 2 sprays NA DAILY VIANEY Stop: 02/03/24 08:59 Last Admin: 01/09/24 09:20 Dose: Not Given Gabapentin (Gabapentin 600 Mg Tab) 600 mg PO TID VIANEY Stop: 02/03/24 08:59 Last Admin: 01/09/24 13:59 Dose: Not Given Gemfibrozil (Gemfibrozil 600 Mg Tab) 600 mg PO BID VIANEY Stop: 02/03/24 08:59 Last Admin: 01/09/24 09:20 Dose: Not Given Glucagon (Glucagon For Inj 1 Mg Vial) 1 mg SQ UD PRN; Protocol PRN Reason: Hypoglycemia Protocol Stop: 02/04/24 13:18 Glucose (Glucose 10 Tab/Tube) 4 - 8 tab PO UD PRN; Protocol PRN Reason: Hypoglycemia Treatment Stop: 02/04/24 13:18 Glucose (Glucose 40% Gel 15 Gm Tube) 15 - 30 gm PO UD PRN; Protocol PRN Reason: Hypoglycemia Protocol Stop: 02/04/24 13:18 Haloperidol Lactate (Haloperidol Lactate 5 Mg/Ml 1 Ml Vial) 5 mg IM Q4 PRN PRN Reason: agitation Stop: 02/04/24 16:50 Last Admin: 01/06/24 04:34 Dose: 5 mg Lorazepam 1 mg/ Syringe 1 mls @ 2 mls/min IV TID [facility] Stop: 02/04/24 12:29 Last Admin: 01/09/24 13:59 Dose: Not Given Insulin Aspart (Insulin Aspart Per Unit Charge) 0 units SC ACHS [facility] Stop: 02/04/24 16:29 Last Admin: 01/09/24 12:53 Dose: Not Given Lisinopril (Lisinopril 5 Mg Tab) 5 mg PO DAILY VIANEY Stop: 02/03/24 08:59 Last Admin: 01/09/24 09:20 Dose: Not Given Mirtazapine (Mirtazapine Tab 15 Mg Tab) 15 mg PO HS [facility] Stop: 02/03/24 20:59 Miscellaneous (Carbohydrates For Hypoglycemia ) 15 - 30 gm PO UD PRN PRN Reason: Hypoglycemia Protocol Stop: 02/04/24 13:18 Ondansetron HCl (Ondansetron Inj 2 Mg/Ml 2 Ml Vial) 4 mg IV Q6H PRN PRN Reason: Nausea Stop: 02/03/24 01:17 Oxybutynin Chloride (Oxybutynin Chloride 5 Mg Tab) 5 mg PO BID VIANEY Stop: 02/03/24 08:59 Last Admin: 01/09/24 09:20 Dose: Not Given Pantoprazole Sodium (Pantoprazole 40 Mg Tab) 40 mg PO DAILY VIANEY Stop: 02/03/24 08:59 Last Admin: 01/09/24 09:20 Dose: Not Given Risperidone (Risperidone 3 Mg Tablet) 3 mg PO QPM VIANEY Stop: 02/07/24 20:59 Last Admin: 01/08/24 22:52 Dose: Not Given Sucralfate (Sucralfate 1 Gm Tab) 1 gm PO QID PRN PRN Reason: ABD DISCOMFORT Stop: 02/03/24 01:17 (1) AMS (altered mental status) Altered mental status type: unspecified Qualified Code(s): R41.82 - Altered mental status, unspecified
--- NOTE | 2024-01-09 15:46 | Hospitalist Progress Note ---
Date of Service January 09, 2024 Assessment & Plan (1) AMS (altered mental status): Plan: Metabolic encephalopathy versus toxic encephalopathy Patient returns for worsening confusion, echolalia, and incoherent thought processes since her discharge on 01/02 She was at [facility] for an unresponsive episode on 01/01; opiates+ patient was placed on IV Narcan drip Brain MRI was not obtained prior to previous discharge Head CT revealed NAF CXR NAF Imaging on 01/01: Head CT revealed a small age-indeterminate infarct in the left cerebellar hemisphere that required MRI for further assessment Head CTA revealed 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 Opiates negative on arrival Salicylates, acetaminophen WNL MDMA screen positive in setting of Wellbutrin use Neurology on board. Did not recommend any further neurowork-up. Most likely related to polypharmacy. Patient was on gabapentin 800 mg p.o. 4 times daily. I reduced it to 600 mg p.o. 3 times daily for now. Psychiatry on board. Held Wellbutrin. Reduced the dose of Cymbalta from 90-30. Discontinued Remeron. Still on risperdal Psychiatry ordered IV Ativan 01/09 patient refusing food, water and all her meds, she does not answer questions , will require 302 since patient will deteriorate quickly and will be at risk of , discussed with psychiatry PT/OT consulted. Patient is ambulatory per PT/OT A.m. BMP, CBC (2) Leukocytosis: Plan: UA negative on 01/03 However, UA positive on 01/01 and covered with Zosyn inpatient Patient was discharged on ciprofloxacin 500 mg p.o. BID x 5 days (only took 1 dose) Urine culture on 01/01 grew E. coli sensitive to Rocephin Will continue to cover with Rocephin 2000 mg IV q24h while inpatient (3) Rhabdomyolysis: Plan: CK elevated at 3126 Continue fluid resuscitation with Plasma-Lyte at 125mL/hr x2 CK came down to the 1700s range Recheck CK in a.m. to ensure resolution (4) Hypertension: Plan: Continue amlodipine (5) HLD (hyperlipidemia): Plan: Continue ezetimibe, atorvastatin (6) Diabetes mellitus: Plan: A1c came back at 7.7 This is a new diagnosis of diabetes Will discharge her on metformin sliding scale insulin Carb controlled diet Plan Full code VTE PPx: Lovenox 40mg SQ q24h Admission and Anticipated Discharge Date Admission Date: January 03, 2024 Subjective Patient is awake and alert. Sitter in the room. Did'nt eat or drink today Review of Systems Review of Systems: refused to talk Physical Exam Physical Exam: General: Awake, conversant, smiling. Slightly more talkative today Heart: S1, S2/regular rate and rhythm, no murmur rubs or gallops Lungs: Clear to auscultation bilaterally. Normal effort Abdomen: Soft/nontender/nondistended. No hepatosplenomegaly Extremities: No clubbing/cyanosis. No edema Behavior: Appropriate, cooperative Results & Data Results & Data Vital Signs (Past 12 Hours) Vital Signs Resp BP 01/09/24 08:38 16 178/71 H Laboratory Results Abnormal lab results 01/08/24 01/09/24 01/09/24 Range/Units 21:23 07:58 11:16 POC Glucose 148 H 147 H 120 H (70-99) mg/dl PG Care Time/CCT Total # of Minutes Spent Total Time Spent with Patient: Total time spent is greater than 50% in coordination of care (as documented) at patient's floor/unit and/or counseling patient: Coding Level of Care Code 06199 SUB INP/OBS CARE 3/50MIN Diagnoses AMS (altered mental status) R41.82 Altered mental status type: unspecified Leukocytosis D72.829 Rhabdomyolysis M62.82 Rhabdomyolysis type: non-traumatic Hypertension I10 HLD (hyperlipidemia) E78.5 Diabetes mellitus E11.9 (1) AMS (altered mental status) Altered mental status type: unspecified Qualified Code(s): R41.82 - Altered mental status, unspecified (3) Rhabdomyolysis Rhabdomyolysis type: non-traumatic Qualified Code(s): M62.82 - Rhabdomyolysis
--- NOTE | 2024-01-09 17:40 | Communication Note ---
Date of Service: January 09, 2024 patient known to me from earlier in stay. Administrative review with Dr. Blount today as patient increasingly paranoid since last contact and started to refuse Ativan which has resulted in a recurrence of catatonic features--this time refusing to speak, take insulin, any meds, food or drink. Hospitalist confirms that she remains medically compromised and a significant risk if not receiving psychiatric medications over objections (Ativan currently planned). Her is confirmed this is not her baseline and reportedly desires intervention. consult service is pursuing a 302 commitment. I agree that medications over objection are medically necessary at this time and given that admitted medically for several issues, should not delay for a 303 hearing.
[2024-01-10] MEDS: NICOTINE 14 MG/24 HR PATCH TD SCH (06:12)
[2024-01-10] MEDS: LORazepam 1 MG TAB PO SCH (08:38)
[2024-01-10] MEDS: LACTATED RINGER'S 1,000 ML IV SCH (08:38)
[2024-01-10] MEDS ORDERED: NICOTINE 14 MG/24 HR PATCH TD SCH (09:00)
--- NOTE | 2024-01-10 09:57 | Psychiatric Progress Note ---
Date of Service January 10, 2024 Impression / Recommendations Impression 01/10/24: We are seeing swings in her appearance and behavior. Part of this is due to her poor adherence to medication. Yesterday, I felt like she was catatonic, but today she is mostly paranoid and irritated. Either way, I do not feel she is ready to leave the hospital and needs some stability before her will be able to take her on again. He is very overwhelmed by what is going on right now. as per 01/04/24: 68 yo female with complex presentation given recent opiod OD with use of narcan with some degree of protracted withdrawal or other unspecified delirium with reported features of agitated catatonia upon presentation last pm. Patient with some symptoms to suggest mild serotonin syndrome with agitation, confusion, sensitivity to light, muscle twitching. Significant polypharmacy with likely ingestion of incorrect doses of 3 antidepressants. Unclear if depression has psychotic features at baseline or if she may have other diagnoses--will need collateral from as weekend and no records from current psychiatric prescriber at [facility] (Valentina Andrea). Doubt NMS given lack of rigidity, fever, and CPK minimally elevated/trending down. catatonic features resolved with Ativan, but are returning now that she has stopped it. She is tolerating Haldol for breakthrough agitation. still waxing and waning/unpredictable. (1) AMS (altered mental status): (2) Depression: Plan 01/10/24: I am going to add lorazepam 1 mg p.o. 3 times daily and see if she is willing to take it. Hopefully, she will continue with her risperidone at 3 mg nightly, but she has been refusing that over the last few days. If we continue to not see improvement and she continues to refuse medications, I believe we have no choice but to move towards possible involuntary hospitalization. Fortunately, she seems to be eating again. However, if she stops eating again, especially drinking again, we may need to compel her to take medication against her will or she may deteriorate very significantly. Patient is refusing all meds at this point. The psychiatric nurse liaison will petition and we will move toward a 302. If she continues to refuse to eat or drink, she will quickly deteriorate medically. Lorazepam may be the only thing that brings her out of this and we may have to force her to take it IM or IV. For now, we will offer Cymbalta 30 mg and Risperdal 3 mg pm (increased yesterday). Patient Has standing Ativan TID and Haldol prn. Monitor for EPS and could use Cogentin as needed if develops, try to limit due to anticholiner gic effects. Overall, I spent a total of 55 minutes with this case, including review of chart, direct evaluation of the patient, ordering medication, coordination with nursing, and documentation. Suicide Risk Level Suicide Risk Level: Moderate (q15 min suicide checks) Interval History Identifying Information 68 yo female from [place], just discharged from [facility] following an unresponsive episode on 01/01 for Narcan drip for admitted opiod use ('s prescription). Readmitted for confusion. Initial consult completed on 01/04/24. Chief Complaint "I'm better." Subjective Subjective Today I met with the patient and reviewed the chart. I also met with the one-to-one who is working with her today. I also texted with Dr. Prakash about the case. wSeta is here for some bizarre behavior and concerns about an overdose. She also may have had catatonia. She had been refusing Ativan for the last few days and when I met with her yesterday she was not communicating at all. She would look at me and she looked irritated, but made no words and was not eating/drinking as well. This morning, when I came in to see her, she was awake and talking. She made good eye contact with me and was bright. She did not remember seeing me yesterday. I explained to her that we had concerns that she may have been catatonic yesterday and how important it is for her to take her medications. She reassured me that she had started taking her medications this morning, but in the chart she did not take any medications last night. She is denying any suicidal or homicidal thoughts. She is alert to time and place, but she thinks were trying to trick her about the date. She also had some concerns about a sink in the room that she says just went on on its own (which is certainly possible), but now she is afraid of it. She also told me that she had kicked her out of the room because when she woke up he scared her by sitting next to her in a chair next to the bed. When we discussed the date, she would not believe me that the date was January 10 and that it was Saturday. She feels like people are playing tricks on her. Physical Exam Psychiatric Orientation: alert, oriented to person and oriented to place; + not oriented to time Apperance: appropriately groomed and + disheveled Eye Contact: good eye contact Motor Behavior: no abnormal motor movements Speech: + loud speech and normal rate/rhythm/volume of speech (will halt speech) Affect: + anxious affect and + angry affect; no tearful affect Mood: no depressed mood Thought Process: + tangential thought process Thought Content: + paranoid Suicidal Thoughts: denies suicidal thoughts Homicidal Thoughts: denies homicidal thoughts Hallucinations: no auditory hallucinations and no visual hallucinations Cognition: language grossly intact; + attention not intact Estimated Intelligence: + below average estimated intelligence Insight: + poor insight and + severely impaired insight Judgment: + poor judgement and + severely impaired judgement Vital Signs (Past 24 Hours) Last Vital Signs Temp 36.7 C 01/10/24 07:55 Pulse 92 H 01/10/24 07:55 Resp 18 01/10/24 07:55 BP 152/83 H 01/10/24 07:55 Pulse Ox 96 01/10/24 01:47 O2 Del Method Room Air 01/10/24 07:55 O2 Flow Rate 3 01/04/24 04:59 Results & Data ([facility]) Laboratory Results Laboratory Results - last 24 hr 01/09/24 01/09/24 01/09/24 11:16 14:53 18:29 POC Glucose 120 H 127 H Total Creatine Kinase 97 01/09/24 01/10/24 20:58 07:52 POC Glucose 118 H 149 H Total Creatine Kinase Current Inpatient Medications Current Inpatient Medications: Current Inpatient Medications Acetaminophen (Acetaminophen 325 Mg Tab) 650 mg PO Q4H PRN PRN Reason: Pain or Fever Stop: 02/03/24 01:17 Amlodipine Besylate (Amlodipine Besylate 5 Mg Tab) 5 mg PO QAM [facility] Stop: 02/03/24 08:59 Last Admin: 01/10/24 07:07 Dose: 5 mg Aspirin (Aspirin 81 Mg Ectab) 81 mg PO DAILY [facility] Stop: 02/03/24 08:59 Last Admin: 01/10/24 07:06 Dose: 81 mg Atorvastatin Calcium (Atorvastatin 20 Mg Tab) 20 mg PO DAILY [facility] Stop: 02/03/24 08:59 Last Admin: 01/10/24 07:06 Dose: 20 mg Baclofen (Baclofen 10 Mg Tab) 10 mg PO BID [facility] Stop: 02/03/24 08:59 Last Admin: 01/10/24 08:20 Dose: 10 mg Bupropion HCl (Bupropion Sr 100 Mg Tabcr) 200 mg PO BID [facility] Stop: 02/03/24 08:59 Last Admin: 01/04/24 09:52 Dose: 200 mg Clopidogrel Bisulfate (Clopidogrel Bisulfate 75 Mg Tab) 75 mg PO DAILY [facility] Stop: 02/03/24 08:59 Last Admin: 01/10/24 07:06 Dose: 75 mg Dextrose (Dextrose 50% 50 Ml Syringe) 25 - 50 ml IV UD PRN; Protocol PRN Reason: Hypoglycemia Protocol Stop: 02/04/24 13:18 Duloxetine HCl (Duloxetine Hcl 60 Mg Cap) 60 mg PO DAILY [facility] Stop: 02/03/24 08:59 Last Admin: 01/04/24 09:45 Dose: 60 mg Duloxetine HCl (Duloxetine Hcl 30 Mg Cap) 30 mg PO DAILY [facility] Stop: 02/03/24 08:59 Last Admin: 01/10/24 07:07 Dose: 30 mg Ezetimibe (Ezetimibe 10 Mg Tab) 10 mg PO DAILY [facility] Stop: 02/03/24 08:59 Last Admin: 01/10/24 07:06 Dose: 10 mg Enoxaparin Sodium (Enoxaparin Inj 40 Mg/0.4 Ml Syr) 40 mg SQ Q24H [facility] Stop: 02/03/24 07:59 Last Admin: 01/10/24 07:09 Dose: 40 mg Fluticasone Propionate (Fluticasone Propionate Na Spr 16 Gm Btl) 2 sprays NA DAILY [facility] Stop: 02/03/24 08:59 Last Admin: 01/10/24 07:08 Dose: 2 sprays Gabapentin (Gabapentin 600 Mg Tab) 600 mg PO TID [facility] Stop: 02/03/24 08:59 Last Admin: 01/10/24 07:08 Dose: 600 mg Gemfibrozil (Gemfibrozil 600 Mg Tab) 600 mg PO BID [facility] Stop: 02/03/24 08:59 Last Admin: 01/10/24 07:07 Dose: 600 mg Glucagon (Glucagon For Inj 1 Mg Vial) 1 mg SQ UD PRN; Protocol PRN Reason: Hypoglycemia Protocol Stop: 02/04/24 13:18 Glucose (Glucose 10 Tab/Tube) 4 - 8 tab PO UD PRN; Protocol PRN Reason: Hypoglycemia Treatment Stop: 02/04/24 13:18 Glucose (Glucose 40% Gel 15 Gm Tube) 15 - 30 gm PO UD PRN; Protocol PRN Reason: Hypoglycemia Protocol Stop: 02/04/24 13:18 Haloperidol Lactate (Haloperidol Lactate 5 Mg/Ml 1 Ml Vial) 5 mg IM Q4 PRN PRN Reason: agitation Stop: 02/04/24 16:50 Last Admin: 01/06/24 04:34 Dose: 5 mg Insulin Aspart (Insulin Aspart Per Unit Charge) 0 units SC ACHS [facility] Stop: 02/04/24 16:29 Last Admin: 01/10/24 08:16 Dose: Not Given Lisinopril (Lisinopril 5 Mg Tab) 5 mg PO DAILY [facility] Stop: 02/03/24 08:59 Last Admin: 01/10/24 07:07 Dose: 5 mg Lorazepam (Lorazepam 1 Mg Tab) 1 mg PO TID [facility] Stop: 02/09/24 08:59 Last Admin: 01/10/24 08:38 Dose: Not Given Mirtazapine (Mirtazapine Tab 15 Mg Tab) 15 mg PO HS [facility] Stop: 02/03/24 20:59 Miscellaneous (Carbohydrates For Hypoglycemia ) 15 - 30 gm PO UD PRN PRN Reason: Hypoglycemia Protocol Stop: 02/04/24 13:18 Miscellaneous (Remove Nicoderm Patch) 1 each N/A DAILY@0859 [facility] Stop: 02/10/24 08:58 Nicotine (Nicotine 14 Mg/24 Hr Patch) 14 mg TD QAM [facility] Stop: 02/09/24 05:14 Last Admin: 01/10/24 06:12 Dose: 14 mg Ondansetron HCl (Ondansetron Inj 2 Mg/Ml 2 Ml Vial) 4 mg IV Q6H PRN PRN Reason: Nausea Stop: 02/03/24 01:17 Oxybutynin Chloride (Oxybutynin Chloride 5 Mg Tab) 5 mg PO BID [facility] Stop: 03/04/24 08:59 Last Admin: 01/10/24 07:07 Dose: 5 mg Pantoprazole Sodium (Pantoprazole 40 Mg Tab) 40 mg PO DAILY [facility] Stop: 02/03/24 08:59 Last Admin: 01/10/24 07:07 Dose: 40 mg Risperidone (Risperidone 3 Mg Tablet) 3 mg PO QPM [facility] Stop: 02/07/24 20:59 Last Admin: 01/09/24 22:11 Dose: Not Given Sucralfate (Sucralfate 1 Gm Tab) 1 gm PO QID PRN PRN Reason: ABD DISCOMFORT Stop: 02/03/24 01:17 (1) AMS (altered mental status) Altered mental status type: unspecified Qualified Code(s): R41.82 - Altered mental status, unspecified
--- NOTE | 2024-01-10 15:37 | Hospitalist Progress Note ---
Date of Service January 10, 2024 Assessment & Plan (1) AMS (altered mental status): Plan: Metabolic encephalopathy versus toxic encephalopathy Patient returns for worsening confusion, echolalia, and incoherent thought processes since her discharge on 01/02 She was at [facility] for an unresponsive episode on 01/01; opiates+ patient was placed on IV Narcan drip Brain MRI was not obtained prior to previous discharge Head CT revealed NAF CXR NAF Imaging on 01/01: Head CT revealed a small age-indeterminate infarct in the left cerebellar hemisphere that required MRI for further assessment Head CTA revealed 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 Opiates negative on arrival Salicylates, acetaminophen WNL MDMA screen positive in setting of Wellbutrin use Neurology on board. Did not recommend any further neurowork-up. Most likely related to polypharmacy. Patient was on gabapentin 800 mg p.o. 4 times daily. I reduced it to 600 mg p.o. 3 times daily for now. Psychiatry on board. Held Wellbutrin. Reduced the dose of Cymbalta from 90-30. Discontinued Remeron. Still on risperdal Psychiatry ordered IV Ativan 01/09 patient refusing food, water and all her meds, she does not answer questions , will require 302 since patient will deteriorate quickly and will be at risk of , discussed with psychiatry 01/10 patient is doing much better, takes her meds, eating, drinking liquids PT/OT consulted. Patient is ambulatory per PT/OT A.m. BMP, CBC (2) Leukocytosis: Plan: UA negative on 01/03 However, UA positive on 01/01 and covered with Zosyn inpatient Patient was discharged on ciprofloxacin 500 mg p.o. BID x 5 days (only took 1 dose) Urine culture on 01/01 grew E. coli sensitive to Rocephin Will continue to cover with Rocephin 2000 mg IV q24h while inpatient monitor off antibiotics (3) Rhabdomyolysis: Plan: CK elevated at 3126 Continue fluid resuscitation with Plasma-Lyte at 125mL/hr x2 CK came down to the 1700s range Recheck CK in a.m. to ensure resolution (4) Hypertension: Plan: blood pressure elevated Continue amlodipine (5) HLD (hyperlipidemia): Plan: Continue ezetimibe, atorvastatin (6) Diabetes mellitus: Plan: A1c came back at 7.7 This is a new diagnosis of diabetes Will discharge her on metformin sliding scale insulin Carb controlled diet Plan Full code VTE PPx: Lovenox 40mg SQ q24h Admission and Anticipated Discharge Date Admission Date: January 03, 2024 Subjective Patient is doing better, taking medicines, eating , drinking water, communicating with staff Review of Systems Review of Systems: denies chest pain, SOB, cough, fever Physical Exam Physical Exam: General: Awake, conversant, smiling. Slightly more talkative today Heart: S1, S2/regular rate and rhythm, no murmur rubs or gallops Lungs: Clear to auscultation bilaterally. Normal effort Abdomen: Soft/nontender/nondistended. No hepatosplenomegaly Extremities: No clubbing/cyanosis. No edema Behavior: Appropriate, cooperative Results & Data Results & Data Vital Signs (Past 12 Hours) Vital Signs Temp Pulse Pulse Resp BP BP Pulse Ox 01/10/24 14:44 36.3 C L 105 H 22 183/75 H 97 01/10/24 07:55 36.7 C 92 H 18 152/83 H O2 Del Method 01/10/24 14:44 Room Air 01/10/24 07:55 Room Air PG Care Time/CCT Total # of Minutes Spent Total Time Spent with Patient: Total time spent is greater than 50% in coordination of care (as documented) at patient's floor/unit and/or counseling patient: Coding Level of Care Code 64543 SUB INP/OBS CARE 2/35MIN Diagnoses AMS (altered mental status) R41.82 Altered mental status type: unspecified Leukocytosis D72.829 Rhabdomyolysis M62.82 Rhabdomyolysis type: non-traumatic Hypertension I10 HLD (hyperlipidemia) E78.5 Diabetes mellitus E11.9 (1) AMS (altered mental status) Altered mental status type: unspecified Qualified Code(s): R41.82 - Altered mental status, unspecified (3) Rhabdomyolysis Rhabdomyolysis type: non-traumatic Qualified Code(s): M62.82 - Rhabdomyolysis
[2024-01-10] MEDS: lisinopril 10 MG TAB PO SCH (16:18)
[2024-01-11 06:50] LABS: Hemoglobin 12.7 g/dl (12.0-16.0); Mean Corpuscular Hemoglobin 31.1 pg (25.0-34.0); Mean Corpuscular Hgb Conc 35.3 g/dL (32.0-36.0); Mean Corpuscular Volume 88.2 fL (80.0-100.0); Mean Platelet Volume 11.2 fL (9.4-12.4); Platelet Count 353 K/uL (130-400); RDW Standard Deviation 38.6 fL (36.4-46.3); Red Blood Count 4.08 M/uL (4.20-5.40); White Blood Count 7.93 K/ul (4.8-10.8)
[2024-01-11 07:41] LABS: Calcium 9.4 mg/dl (8.6-10.3); Creatinine Clr Calc Pharmacy 67.4 ml/min; Est GFR (African American) 78.3 ml/min; Est GFR (Non-African American) 67.5 ml/min; Magnesium 1.6 mg/dl (1.7-2.4); Potassium 3.1 mmol/L (3.5-5.1)
[2024-01-11] MEDS: amLODIPine BESYLATE 5 MG TAB PO SCH (09:16)
[2024-01-11] MEDS: POTASSIUM CHLORIDE CRTAB 20 MEQ TABCR PO STA (12:42)
--- NOTE | 2024-01-11 14:26 | Psychiatric Progress Note ---
Date of Service January 11, 2024 Impression / Recommendations Impression 01/11/23: improving but remains inconsistent in past 2 days with regards to paranoia and med compliance, ?rapid cycling vs. resolving delirium with catatonia. Overall, I spent a total of 45 minutes with this case, including review of chart, direct evaluation of the patient, counseling the patient, coordination with nursing,coordination of care with hospitalist service, and documentation. (1) AMS (altered mental status): (2) Depression: Plan The patient is dramatically improved with resumption of medications and voices good understanding of polypharmacy and role in her hospitalization. She is agreeable to her medications being "bubble wrapped" for safety but otherwise it is unclear if her has removed old medications from the home and what lev el of care/supervision he or another family member is able to provide. She is currently unwilling for inpatient psychiatric care, and 302 criteria are less than on 01/09/24. Liaison has LM for as nearing clearance by hospitalist service to determine if there is a viable safety plan. Interval History Identifying Information 68 yo female from [place], just discharged from [facility] following an unresponsive episode on 01/01 for Narcan drip for admitted opiod use ('s prescription). Readmitted for confusion. Initial consult completed on 01/04/24. Chief Complaint "I'm good, I miss my dogs.". Subjective Subjective Patient was seen & assessed and interval progress reviewed with nursing and Dr. Prakash. Patient was ambulating well in hallways with 1-on-1 aide. She is significantly improved from my last contact with her, and also compared to 01/09/24 as patient has resumed eating and taking meds without need for 302/forced Ativan. She reports she was fully aware of herself/what was happening on 01/09 as "I thought they were messing with me and I'm over that now." She shared some hand written notes re: contributing factors to her depression in the past--loss of an infant child from a brain tumor, loss of an adult child, etc. Physical Exam Psychiatric Orientation: alert Apperance: appropriately groomed Eye Contact: good eye contact Motor Behavior: no abnormal motor movements Speech: normal rate/rhythm/volume of speech Affect: euthymic affect Mood: no depressed mood Thought Process: + concrete thought process Thought Content: not paranoid Suicidal Thoughts: denies suicidal thoughts Homicidal Thoughts: denies homicidal thoughts Hallucinations: no auditory hallucinations and no visual hallucinations Cognition: language grossly intact; + attention not intact Estimated Intelligence: consistent with education level Insight: + limited insight Judgment: + limited judgement Vital Signs (Past 24 Hours) Last Vital Signs Temp 36.8 C 01/10/24 20:38 Pulse 75 01/10/24 20:38 Resp 18 01/10/24 20:38 BP 147/64 H 01/10/24 20:38 Pulse Ox 95 01/10/24 20:38 O2 Del Method Room Air 01/11/24 08:00 O2 Flow Rate 3 01/04/24 04:59 Results & Data ([facility]) Laboratory Results Laboratory Results - last 24 hr 01/10/24 01/10/24 01/11/24 16:00 20:39 06:25 WBC 7.93 RBC 4.08 L Hgb 12.7 Hct 36.0 L MCV 88.2 MCH 31.1 MCHC 35.3 RDW Std Deviation 38.6 RDW Coeff of Aishwarya 12.0 Plt Count 353 MPV 11.2 Sodium 142 Potassium 3.1 L Chloride 107 Carbon Dioxide 25 Anion Gap 10 BUN 16 Creatinine 0.89 Est Cr Clr Drug Dosing 67.4 Est GFR ( Amer) 78.3 Est GFR (Non-Af Amer) 67.5 BUN/Creatinine Ratio 18.0 Glucose 133 H POC Glucose 148 H 114 H Calcium 9.4 Magnesium 1.6 L 01/11/24 07:38 WBC RBC Hgb Hct MCV MCH MCHC RDW Std Deviation RDW Coeff of Aishwarya Plt Count MPV Sodium Potassium Chloride Carbon Dioxide Anion Gap BUN Creatinine Est Cr Clr Drug Dosing Est GFR ( Amer) Est GFR (Non-Af Amer) BUN/Creatinine Ratio Glucose POC Glucose 162 H Calcium Magnesium Current Inpatient Medications Current Inpatient Medications: Current Inpatient Medications Acetaminophen (Acetaminophen 325 Mg Tab) 650 mg PO Q4H PRN PRN Reason: Pain or Fever Stop: 02/03/24 01:17 Amlodipine Besylate (Amlodipine Besylate 5 Mg Tab) 10 mg PO QAM [facility] Stop: 02/10/24 08:59 Last Admin: 01/11/24 09:16 Dose: 10 mg Aspirin (Aspirin 81 Mg Ectab) 81 mg PO DAILY [facility] Stop: 02/03/24 08:59 Last Admin: 01/11/24 07:37 Dose: 81 mg Atorvastatin Calcium (Atorvastatin 20 Mg Tab) 20 mg PO DAILY [facility] Stop: 02/03/24 08:59 Last Admin: 01/11/24 07:36 Dose: 20 mg Baclofen (Baclofen 10 Mg Tab) 10 mg PO BID [facility] Stop: 02/03/24 08:59 Last Admin: 01/11/24 07:39 Dose: 10 mg Clopidogrel Bisulfate (Clopidogrel Bisulfate 75 Mg Tab) 75 mg PO DAILY [facility] Stop: 02/03/24 08:59 Last Admin: 01/11/24 07:37 Dose: 75 mg Dextrose (Dextrose 50% 50 Ml Syringe) 25 - 50 ml IV UD PRN; Protocol PRN Reason: Hypoglycemia Protocol Stop: 02/04/24 13:18 Duloxetine HCl (Duloxetine Hcl 30 Mg Cap) 30 mg PO DAILY [facility] Stop: 02/03/24 08:59 Last Admin: 01/11/24 07:37 Dose: 30 mg Ezetimibe (Ezetimibe 10 Mg Tab) 10 mg PO DAILY [facility] Stop: 02/03/24 08:59 Last Admin: 01/11/24 07:36 Dose: 10 mg Enoxaparin Sodium (Enoxaparin Inj 40 Mg/0.4 Ml Syr) 40 mg SQ Q24H [facility] Stop: 02/03/24 07:59 Last Admin: 01/11/24 07:35 Dose: 40 mg Fluticasone Propionate (Fluticasone Propionate Na Spr 16 Gm Btl) 2 sprays NA DAILY [facility] Stop: 02/03/24 08:59 Last Admin: 01/11/24 07:39 Dose: 2 sprays Gabapentin (Gabapentin 600 Mg Tab) 600 mg PO TID [facility] Stop: 02/03/24 08:59 Last Admin: 01/11/24 13:44 Dose: 600 mg Gemfibrozil (Gemfibrozil 600 Mg Tab) 600 mg PO BID [facility] Stop: 02/03/24 08:59 Last Admin: 01/11/24 07:36 Dose: 600 mg Glucagon (Glucagon For Inj 1 Mg Vial) 1 mg SQ UD PRN; Protocol PRN Reason: Hypoglycemia Protocol Stop: 02/04/24 13:18 Glucose (Glucose 10 Tab/Tube) 4 - 8 tab PO UD PRN; Protocol PRN Reason: Hypoglycemia Treatment Stop: 02/04/24 13:18 Glucose (Glucose 40% Gel 15 Gm Tube) 15 - 30 gm PO UD PRN; Protocol PRN Reason: Hypoglycemia Protocol Stop: 02/04/24 13:18 Haloperidol Lactate (Haloperidol Lactate 5 Mg/Ml 1 Ml Vial) 5 mg IM Q4 PRN PRN Reason: agitation Stop: 02/04/24 16:50 Last Admin: 01/06/24 04:34 Dose: 5 mg Insulin Aspart (Insulin Aspart Per Unit Charge) 0 units SC ACHS [facility] Stop: 02/04/24 16:29 Last Admin: 01/11/24 12:42 Dose: Not Given Lisinopril (Lisinopril 10 Mg Tab) 10 mg PO DAILY [facility] Stop: 02/09/24 15:44 Last Admin: 01/11/24 07:36 Dose: 10 mg Lorazepam (Lorazepam 1 Mg Tab) 1 mg PO TID [facility] Stop: 02/09/24 08:59 Last Admin: 01/11/24 13:44 Dose: 1 mg Miscellaneous (Carbohydrates For Hypoglycemia ) 15 - 30 gm PO UD PRN PRN Reason: Hypoglycemia Protocol Stop: 02/04/24 13:18 Miscellaneous (Remove Nicoderm Patch) 1 each N/A DAILY@0859 [facility] Stop: 02/10/24 08:58 Last Admin: 01/11/24 07:44 Dose: 1 each Nicotine (Nicotine 14 Mg/24 Hr Patch) 14 mg TD QAM [facility] Stop: 02/09/24 05:14 Last Admin: 01/11/24 07:35 Dose: 14 mg Ondansetron HCl (Ondansetron Inj 2 Mg/Ml 2 Ml Vial) 4 mg IV Q6H PRN PRN Reason: Nausea Stop: 02/03/24 01:17 Oxybutynin Chloride (Oxybutynin Chloride 5 Mg Tab) 5 mg PO BID [facility] Stop: 02/03/24 08:59 Last Admin: 01/11/24 07:36 Dose: 5 mg Pantoprazole Sodium (Pantoprazole 40 Mg Tab) 40 mg PO DAILY [facility] Stop: 02/03/24 08:59 Last Admin: 01/11/24 07:36 Dose: 40 mg Risperidone (Risperidone 3 Mg Tablet) 3 mg PO QPM [facility] Stop: 02/07/24 20:59 Last Admin: 01/10/24 21:17 Dose: 3 mg Sucralfate (Sucralfate 1 Gm Tab) 1 gm PO QID PRN PRN Reason: ABD DISCOMFORT Stop: 02/03/24 01:17 (1) AMS (altered mental status) Altered mental status type: unspecified Qualified Code(s): R41.82 - Altered mental status, unspecified
--- NOTE | 2024-01-11 14:47 | Hospitalist Progress Note ---
Date of Service January 11, 2024 Assessment & Plan (1) AMS (altered mental status): Plan: Metabolic encephalopathy versus toxic encephalopathy Patient returns for worsening confusion, echolalia, and incoherent thought processes since her discharge on 01/02 She was at [facility] for an unresponsive episode on 01/01; opiates+ patient was placed on IV Narcan drip Brain MRI was not obtained prior to previous discharge Head CT revealed NAF CXR NAF Imaging on 01/01: Head CT revealed a small age-indeterminate infarct in the left cerebellar hemisphere that required MRI for further assessment Head CTA revealed 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 Opiates negative on arrival Salicylates, acetaminophen WNL MDMA screen positive in setting of Wellbutrin use Neurology on board. Did not recommend any further neurowork-up. Most likely related to polypharmacy. Patient was on gabapentin 800 mg p.o. 4 times daily. I reduced it to 600 mg p.o. 3 times daily for now. Psychiatry on board. Held Wellbutrin. Reduced the dose of Cymbalta from 90-30. Discontinued Remeron. Still on risperdal Psychiatry ordered IV Ativan 01/09 patient refusing food, water and all her meds, she does not answer questions , will require 302 since patient will deteriorate quickly and will be at risk of , discussed with psychiatry 01/10 patient is doing much better, takes her meds, eating, drinking liquids 01/11 patient is taking her meds, wants to go home PT/OT consulted. Patient is ambulatory per PT/OT A.m. BMP, CBC (2) Leukocytosis: Plan: UA negative on 01/03 However, UA positive on 01/01 and covered with Zosyn inpatient Patient was discharged on ciprofloxacin 500 mg p.o. BID x 5 days (only took 1 dose) Urine culture on 01/01 grew E. coli sensitive to Rocephin Will continue to cover with Rocephin 2000 mg IV q24h while inpatient monitor off antibiotics (3) Rhabdomyolysis: Plan: CK elevated at 3126 Continue fluid resuscitation with Plasma-Lyte at 125mL/hr x2 CK came down to the 1700s range Recheck CK in a.m. to ensure resolution (4) Hypertension: Plan: blood pressure elevated Continue amlodipine (5) HLD (hyperlipidemia): Plan: Continue ezetimibe, atorvastatin (6) Diabetes mellitus: Plan: A1c came back at 7.7 This is a new diagnosis of diabetes Will discharge her on metformin sliding scale insulin Carb controlled diet Plan Full code VTE PPx: Lovenox 40mg SQ q24h Admission and Anticipated Discharge Date Admission Date: January 03, 2024 Supervising Physician Co-Signing Physician Notes Patient seen and examined, chart reviewed, case discussed with CHAYO Urbano and I agree with the assessment and plan as above. In brief, patient is a 68yo female presenting with change in mental status. Patient was recently admitted to [facility] on 01/01/24 for unresponsiveness thought to be secondary to ingestion of her 's opioid medication. She was managed with IV Narcan and subsequently a Narcan drip. She was ultimately discharged on 01/02/24. Her reports that she was confused on the day of discharge and was repeating herself and repeating some things that others were saying as well. She was discharged on Ciprofloxacin 500mg po BID x 5 days for treatment of a UTI. On exam patient is resting in bed. She appears agitated at times but is redirectable and able to answer questions and follow commands with repeated prompting. Oriented to person and location Skin - intact, no rash HEENT - MMM, Neck supple, PERRL Heart -S1/S2, regular, no m/r/g Lungs - CTA, no rales/rhonchi/wheezes Abd- +BS, soft, NT/ND Ext - warm, well perfused Neuro/Psych - patient agitated at times, able to answer questions. No tremor. Speech is clear. Inappropriate at times with periods of repetition, possibly echolalia for example, patient kept repeating "two gloves, two gloves, two gloves" during my exam. Then repeating "green mask, green mask, green mask" and counting as well. No obvious facial asymmetry. CN II - XII grossly intact. Sensation to light touch intact. MS 5/5 in UE/LE bilaterally. Did not assess gait. No clonus or inducible clonus. No muscular rigidity. No nuchal rigidity Labs and images reviewed WBC=14.05 with elevation of neutrophils AST=66 ZG=[id number] MRI with no acute abnormality Assessment/Plan - AMS, confusion, agitation, repetitive speech/echolalia. Patient with no history of this in the past. Possibly delirium? ?Medication effects ?Infection. -Neuro checks -Psychiatry consultation and Neuro consultation appreciated -PT/OT evaluation -Will hold Cipro and Change to Ceftriaxone for continued treatment for UTI -May need LP if mental state fails to improve -Remainder as above Subjective Patient is doing better, taking medicines, eating , drinking water, communicating with staff 2/10 reports feeling better, wants to go home Review of Systems Review of Systems: denies chest pain, SOB, cough, fever Physical Exam Physical Exam: General: Awake, conversant, smiling. Slightly more talkative today Heart: S1, S2/regular rate and rhythm, no murmur rubs or gallops Lungs: Clear to auscultation bilaterally. Normal effort Abdomen: Soft/nontender/nondistended. No hepatosplenomegaly Extremities: No clubbing/cyanosis. No edema Behavior: Appropriate, cooperative Results & Data Results & Data Vital Signs (Past 12 Hours) Vital Signs O2 Del Method 01/11/24 08:00 Room Air PG Care Time/CCT Total # of Minutes Spent Total Time Spent with Patient: Total time spent is greater than 50% in coordination of care (as documented) at patient's floor/unit and/or counseling patient: Coding Level of Care Code 18723 SUB INP/OBS CARE MIN Diagnoses AMS (altered mental status) R41.82 Altered mental status type: unspecified Leukocytosis D72.829 Rhabdomyolysis M62.82 Rhabdomyolysis type: non-traumatic Hypertension I10 HLD (hyperlipidemia) E78.5 Diabetes mellitus E11.9 (1) AMS (altered mental status) Altered mental status type: unspecified Qualified Code(s): R41.82 - Altered m ental status, unspecified (3) Rhabdomyolysis Rhabdomyolysis type: non-traumatic Qualified Code(s): M62.82 - Rhabdomyolysis
[2024-01-12 08:55] LABS: Hematocrit (blood only) 41.9 % (37.0-47.0); Hemoglobin 14.1 g/dl (12.0-16.0); Mean Corpuscular Hemoglobin 30.7 pg (25.0-34.0); Mean Corpuscular Hgb Conc 33.7 g/dL (32.0-36.0); Mean Corpuscular Volume 91.3 fL (80.0-100.0); Mean Platelet Volume 11.4 fL (9.4-12.4); Platelet Count 383 K/uL (130-400); RDW Coefficient of Variation 12.3 % (11.5-14.5); RDW Standard Deviation 40.6 fL (36.4-46.3); Red Blood Count 4.59 M/uL (4.20-5.40); White Blood Count 7.94 K/ul (4.8-10.8)
--- NOTE | 2024-01-12 11:36 | Discharge Summary ---
Date of Service January 12, 2024 Admission HPI Per Admitting Provider Sweta is a 68-year-old female with unknown PMH due to unavailable medical records. She returns to the ED with her (Patrick) for worsening confusion, agitation, incoherent thought processes, and echolalia since her discharge yesterday on 01/02. Patient was admitted to [facility] on 01/01 for unresponsiveness and presumed opiate ingestion; whether this was intentional or unintentional was yet to be determined. reports she was confused at time of discharge, and had never returned to her normal baseline. He reports that she would not eat last night, and was repeating things over and over again, and making repetitive hand motions. Patient is a poor historian at time of admission. She exhibits incoherent thought processes, does not respond to questioning, and repeats phrases in echolalic fashion, such as "he took the mask off" x5. She also points out observations in her surroundings, such as "blue scrubs", "black hair", etc. Patient is hypertensive at 171/99 at time of admission. ED course: Lorazepam 1 mg IV x 2 NSS 1500 mL IV Patient is unable to reliably provide any ROS at this time. Potential PMH include hyperlipidemia, anxiety/depression, prior suicidality, substance use, HTN, PAD, HLD, depression, COPD, cirrhosis, muscle spasms, s/p stent placement in the legs/arms/left carotid. Principal Diagnosis psychosis Discharge Exam General: Awake, conversant, smiling. Slightly more talkative today Heart: S1, S2/regular rate and rhythm, no murmur rubs or gallops Lungs: Clear to auscultation bilaterally. Normal effort Abdomen: Soft/nontender/nondistended. No hepatosplenomegaly Extremities: No clubbing/cyanosis. No edema Behavior: Appropriate, cooperative Discharge Data Allergies Allergy/AdvReac Type Severity Reaction Status Date / Time No Known Allergies Allergy Unverified 01/01/24 15:25 Consultations 01/03/24 21:00 ED Decision to Admit Stat 01/03/24 22:02 Consult Neurology Routine Consult Psychiatry Routine Ordered Studies 01/03/24 18:29 CT head/brain wo con Stat 01/03/24 21:35 MRI Brain [MR brain wo con] Stat Diabetes Follow up Diabetes Follow-up Needed for Newly Diagnosed Diabetes Hospital Course (1) AMS (altered mental status): Metabolic encephalopathy versus toxic encephalopathy Patient returns for worsening confusion, echolalia, and incoherent thought processes since her discharge on 01/02 She was at [facility] for an unresponsive episode on 01/01; opiates+ patient was placed on IV Narcan drip Brain MRI was not obtained prior to previous discharge Head CT revealed NAF CXR NAF Imaging on 01/01: Head CT revealed a small age-indeterminate infarct in the left cerebellar hemisphere that required MRI for further assessment Head CTA revealed 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 Opiates negative on arrival Salicylates, acetaminophen WNL MDMA screen positive in setting of Wellbutrin use Neurology on board. Did not recommend any further neurowork-up. Most likely related to polypharmacy. Patient was on gabapentin 800 mg p.o. 4 times daily. I reduced it to 600 mg p.o. 3 times daily for now. Psychiatry on board. Held Wellbutrin. Reduced the dose of Cymbalta from 90-30. Discontinued Remeron. Still on risperdal Psychiatry ordered IV Ativan 01/09 patient refusing food, water and all her meds, she does not answer questions , will require 302 since patient will deteriorate quickly and will be at risk of , discussed with psychiatry 01/10 patient is doing much better, takes her meds, eating, drinking liquids 01/11 patient is taking her meds, wants to go home Patient confusion resolved, her meds adjusted, she is drinking water, eating and ambulating, as per psychiatry her condition is stable and she can be discharged home, blood pressure meds adjusted, she needs to follow up with primary for her DM treatment. PT/OT consulted. Patient is ambulatory per PT/OT A.m. BMP, CBC (2) Leukocytosis: UA negative on 01/03 However, UA positive on 01/01 and covered with Zosyn inpatient Patient was discharged on ciprofloxacin 500 mg p.o. BID x 5 days (only took 1 dose) Urine culture on 01/01 grew E. coli sensitive to Rocephin Will continue to cover with Rocephin 2000 mg IV q24h while inpatient monitor off antibiotics (3) Rhabdomyolysis: CK elevated at 3126 Continue fluid resuscitation with Plasma-Lyte at 125mL/hr x2 CK came down to the 1700s range Recheck CK in a.m. to ensure resolution (4) Hypertension: blood pressure elevated Continue amlodipine (5) HLD (hyperlipidemia): Continue ezetimibe, atorvastatin (6) Diabetes mellitus: A1c came back at 7.7 This is a new diagnosis of diabetes Will discharge her on metformin sliding scale insulin Carb controlled diet Plan Full code VTE PPx: Lovenox 40mg SQ q24h Total Time Total Time Spent Total Time Spent (In Minutes): 45 Discharge Plan Discharge Items Patient Disposition: Home - Self-Care Reason For Visit: ALTERED MENTAL SATUS, ECHOLALIA Discharge Diagnosis: psychosis Condition on Discharge: Good Health Concerns: follow up with PCP Activity: Resume your previous activity Non-emergency contact: Primary Care Provider Call non-emergency contact if: your symptoms worsen, your pain is worsening and you have a fever Follow-up/Referrals: [facility] [Other] - 02/26/24 9:00 am Brigitte Aparicio PA-C [Primary Care Provider] - Diet: Carb Consistent or DM2 and Heart Healthy Addtl Attending Provider Instructions: monitor your blood pressure, blood sugar Pending Studies at Discharge: No Stand-Alone Forms: My [facility] Assurely, Smoking Cessation Medications and DC Order Prescriptions: New risperidone 3 mg Tablet 3 mg PO QPM Qty: 10 2RF lorazepam 1 mg Tablet 1 mg PO TID Qty: 30 2RF gabapentin 600 mg Tablet 600 mg PO TID Qty: 10 0RF amlodipine [Norvasc] 5 mg Tablet 10 mg PO QAM Qty: 30 0RF lisinopril 10 mg Tablet 10 mg PO DAILY Qty: 30 0RF Continued atorvastatin 20 mg tablet 20 mg PO DAILY sucralfate 1 gram tablet 1 g PO QID PRN (Reason: ABD DISCOMFORT) clopidogrel 75 mg tablet 75 mg PO DAILY aspirin 81 mg tablet,delayed release (DR/EC) 81 mg PO DAILY baclofen 10 mg tablet 10 mg PO BID gemfibrozil 600 mg tablet 600 mg PO BID pantoprazole 40 mg tablet,delayed release (DR/EC) 40 mg PO DAILY mirtazapine 15 mg tablet 15 mg PO HS oxybutynin chloride 5 mg tablet 5 mg PO BID fluticasone propionate 50 mcg/actuation spray,suspension 2 spray INTRANASAL DAILY cholecalciferol (vitamin D3) 125 mcg (5,000 unit) capsule 125 mcg PO DAILY ezetimibe 10 mg tablet 10 mg PO DAILY Combivent Respimat 20-100 mcg/actuation mist 1 puff INHALATION QID PRN (Reason: Shortness Of Breath Or Wheezing) Discontinued amlodipine 5 mg tablet 5 mg PO QAM risperidone 2 mg tablet 2 mg PO QPM potassium chloride 20 mEq tablet,ER particles/crystals 20 meq PO BID gabapentin 800 mg tablet 800 mg PO QID ropinirole 0.5 mg tablet 0.5 mg PO HS diclofenac sodium 75 mg tablet,delayed release (DR/EC) 75 mg PO BID lisinopril 5 mg tablet 5 mg PO DAILY bupropion HCl 200 mg tablet sustained-release 12 hr 200 mg PO BID duloxetine 30 mg capsule,delayed release(DR/EC) 30 mg PO DAILY Rx Instructions: TOTAL DOSE 90 MG--TAKES WITH 60 MG CAP. duloxetine 60 mg capsule,delayed release(DR/EC) 60 mg PO DAILY Rx Instructions: TOTAL DOSE 90 MG--TAKES WITH 30 MG CAP. ciprofloxacin HCl 500 mg tablet 500 mg PO BID 5 Days Qty: 10 0RF Discharge Orders: Discharge Order (Routine); Ordered 01/12/24 Ordered By: Yohana Somers/Other Patient Handouts: Diabetes: Meal Planning, Type 2 Diabetes Admission Data Admit Date/Time: 01/03/24 22:27 Attending Provider: Yohana Prakash Admit Provider: Charity Sunshine Primary Care Provider: Brigitte Aparicio Other Providers: Charity Sunshine; Gurinder Marx; Racheal Ontiveros; Jacqueline Irby; Hernan Quiñonez; Oskar Schwab; Parth Blount Jr Coding Level of Care Code 55728 INP/OBS DISCH >30 MIN Diagnoses AMS (altered mental status) R41.82 Altered mental status type: unspecified Leukocytosis D72.829 Rhabdomyolysis M62.82 Rhabdomyolysis type: non-traumatic Hypertension I10 HLD (hyperlipidemia) E78.5 Diabetes mellitus E11.9
--- NOTE | 2024-01-12 12:12 | Psychiatric Progress Note ---
Date of Service January 12, 2024 Impression / Recommendations Impression 01/12/23: delirium and psychosis resolved, mood can be expansive at times but not criteria for inpatient commitment at this time Overall, I spent a total of 47 minutes with this case, including review of chart, direct evaluation of the patient, counseling the patient, coordination with nursing,coordination of care with hospitalist service, and documentation. (1) AMS (altered mental status): (2) Depression: Plan d/c 1 on 1, case discussed with Dr. Prakash as recommend from a psychiatric standpoint that patient be discharged on Ativan 1 mg TID (will need to be slowly tapered on an outpatient basis) and Risperdal 3 mg hs. Only other antidepressant still on board was Cymbalta 30 mg which I would d/c if no pain indication. Patient was counseled that should not combine Ativan with other sedating meds/alcohol. She doesn't drive or operate machinery. Dr. Prakash requested I send psych meds so following PDMP query sent #30 Ativan (10 day supply with 2 RF to minimize amount of meds can access at once) plus Risperdal 3 mg #10 with 2RF. Her psychiatry appointment is greater than 1 month away, if meds are refilled/taper started by PCP, would suggest decrease ativan total daily dose by 0.5 q 1-2 weeks until gone. Interval History Identifying Information 68 yo female from [place], just discharged from [facility] following an unresponsive episode on 01/01 for Narcan drip for admitted opiod use ('s prescription). Readmitted for confusion. Initial consult completed on 01/04/24. Chief Complaint "I'm good, I want to go home." Subjective Subjective Patient was seen & assessed and interval progress reviewed with nursing and Dr. Prakash. Patient reports sleeping well and was quite organized in discussing her medications. She reported visiting with last pm and wants to see her dogs (ie was reality based in coversation). She has been taking medication consistently and has repeated and reliably stated she will only take medications as prescribed. She plans to have them wrapped/prepped by [facility] pharmacy. She voiced good understanding of the risks associated with not taking meds consistently. Her removed guns from home last pm and she is aware of this (never had SI, was just due to disorganization and for general safety planning) and any leftover medications at home are in a secure lock box. Although she did have paranoia on 01/09, she has been free of such since and there does seem to be some behavioral component to her med/food refusals given how quickly she improved without adjustments in medication. She does not want inpatient psychiatric care and given her current presentation and that her earlier symptoms were largely substance withdrawal/resolved, she no longer meets criteria for 302 involuntary commitment. Physical Exam Psychiatric Orientation: alert and oriented x 3 Apperance: appropriately dressed and appropriately groomed Eye Contact: good eye contact Motor Behavior: no abnormal motor movements Speech: normal rate/rhythm/volume of speech Affect: euthymic affect Mood: no depressed mood Thought Process: goal directed thought process Thought Content: reality based without delusions Suicidal Thoughts: denies suicidal thoughts Homicidal Thoughts: denies homicidal thoughts Hallucinations: no auditory hallucinations and no visual hallucinations Cognition: attention grossly intact and language grossly intact Vital Signs (Past 24 Hours) Last Vital Signs Temp 36.3 C L 01/12/24 08:12 Pulse 93 H 01/12/24 08:12 Resp 16 01/12/24 08:12 BP 156/81 H 01/12/24 08:12 Pulse Ox 95 01/12/24 08:12 O2 Del Method Room Air 01/12/24 08:12 O2 Flow Rate 3 01/04/24 04:59 Results & Data ([facility]) Laboratory Results Laboratory Results - last 24 hr 01/12/24 01/12/24 08:08 08:34 WBC 7.94 RBC 4.59 Hgb 14.1 Hct 41.9 MCV 91.3 MCH 30.7 MCHC 33.7 RDW Std Deviation 40.6 RDW Coeff of Aishwarya 12.3 Plt Count 383 MPV 11.4 POC Glucose 130 H Current Inpatient Medications Current Inpatient Medications: Current Inpatient Medications Acetaminophen (Acetaminophen 325 Mg Tab) 650 mg PO Q4H PRN PRN Reason: Pain or Fever Stop: 02/03/24 01:17 Amlodipine Besylate (Amlodipine Besylate 5 Mg Tab) 10 mg PO QAM [facility] Stop: 02/10/24 08:59 Last Admin: 01/12/24 08:33 Dose: 10 mg Aspirin (Aspirin 81 Mg Ectab) 81 mg PO DAILY [facility] Stop: 02/03/24 08:59 Last Admin: 01/12/24 08:33 Dose: 81 mg Atorvastatin Calcium (Atorvastatin 20 Mg Tab) 20 mg PO DAILY [facility] Stop: 02/03/24 08:59 Last Admin: 01/12/24 08:33 Dose: 20 mg Baclofen (Baclofen 10 Mg Tab) 10 mg PO BID [facility] Stop: 02/03/24 08:59 Last Admin: 01/12/24 08:37 Dose: 10 mg Clopidogrel Bisulfate (Clopidogrel Bisulfate 75 Mg Tab) 75 mg PO DAILY [facility] Stop: 02/03/24 08:59 Last Admin: 01/12/24 08:34 Dose: 75 mg Dextrose (Dextrose 50% 50 Ml Syringe) 25 - 50 ml IV UD PRN; Protocol PRN Reason: Hypoglycemia Protocol Stop: 02/04/24 13:18 Duloxetine HCl (Duloxetine Hcl 30 Mg Cap) 30 mg PO DAILY [facility] Stop: 02/03/24 08:59 Last Admin: 01/12/24 08:34 Dose: 30 mg Ezetimibe (Ezetimibe 10 Mg Tab) 10 mg PO DAILY [facility] Stop: 02/03/24 08:59 Last Admin: 01/12/24 08:34 Dose: 10 mg Enoxaparin Sodium (Enoxaparin Inj 40 Mg/0.4 Ml Syr) 40 mg SQ Q24H [facility] Stop: 02/03/24 07:59 Last Admin: 01/12/24 08:35 Dose: 40 mg Fluticasone Propionate (Fluticasone Propionate Na Spr 16 Gm Btl) 2 sprays NA DAILY [facility] Stop: 02/03/24 08:59 Last Admin: 01/12/24 08:34 Dose: 2 sprays Gabapentin (Gabapentin 600 Mg Tab) 600 mg PO TID [facility] Stop: 02/03/24 08:59 Last Admin: 01/12/24 08:34 Dose: 600 mg Gemfibrozil (Gemfibrozil 600 Mg Tab) 600 mg PO BID [facility] Stop: 02/03/24 08:59 Last Admin: 01/12/24 08:33 Dose: 600 mg Glucagon (Glucagon For Inj 1 Mg Vial) 1 mg SQ UD PRN; Protocol PRN Reason: Hypoglycemia Protocol Stop: 02/04/24 13:18 Glucose (Glucose 10 Tab/Tube) 4 - 8 tab PO UD PRN; Protocol PRN Reason: Hypoglycemia Treatment Stop: 02/04/24 13:18 Glucose (Glucose 40% Gel 15 Gm Tube) 15 - 30 gm PO UD PRN; Protocol PRN Reason: Hypoglycemia Protocol Stop: 02/04/24 13:18 Haloperidol Lactate (Haloperidol Lactate 5 Mg/Ml 1 Ml Vial) 5 mg IM Q4 PRN PRN Reason: agitation Stop: 02/04/24 16:50 Last Admin: 01/06/24 04:34 Dose: 5 mg Insulin Aspart (Insulin Aspart Per Unit Charge) 0 units SC ACHS [facility] Stop: 02/04/24 16:29 Last Admin: 01/12/24 08:43 Dose: Not Given Lisinopril (Lisinopril 10 Mg Tab) 10 mg PO DAILY [facility] Stop: 02/09/24 15:44 Last Admin: 01/12/24 08:34 Dose: 10 mg Lorazepam (Lorazepam 1 Mg Tab) 1 mg PO TID [facility] Stop: 02/09/24 08:59 Last Admin: 01/12/24 08:37 Dose: 1 mg Miscellaneous (Carbohydrates For Hypoglycemia ) 15 - 30 gm PO UD PRN PRN Reason: Hypoglycemia Protocol Stop: 02/04/24 13:18 Miscellaneous (Remove Nicoderm Patch) 1 each N/A DAILY@0859 [facility] Stop: 02/10/24 08:58 Last Admin: 01/12/24 08:42 Dose: 1 each Nicotine (Nicotine 14 Mg/24 Hr Patch) 14 mg TD QAM [facility] Stop: 02/09/24 05:14 Last Admin: 01/12/24 08:35 Dose: 14 mg Ondansetron HCl (Ondansetron Inj 2 Mg/Ml 2 Ml Vial) 4 mg IV Q6H PRN PRN Reason: Nausea Stop: 02/03/24 01:17 Oxybutynin Chloride (Oxybutynin Chloride 5 Mg Tab) 5 mg PO BID [facility] Stop: 02/03/24 08:59 Last Admin: 01/12/24 08:35 Dose: 5 mg Pantoprazole Sodium (Pantoprazole 40 Mg Tab) 40 mg PO DAILY [facility] Stop: 02/03/24 08:59 Last Admin: 01/12/24 08:33 Dose: 40 mg Risperidone (Risperidone 3 Mg Tablet) 3 mg PO QPM [facility] Stop: 02/07/24 20:59 Last Admin: 01/11/24 21:06 Dose: 3 mg Sucralfate (Sucralfate 1 Gm Tab) 1 gm PO QID PRN PRN Reason: ABD DISCOMFORT Stop: 02/03/24 01:17 (1) AMS (altered mental status) Altered mental status type: unspecified Qualified Code(s): R41.82 - Altered mental status, unspecified
--- NOTE | 2024-01-12 14:55 | Communication Note ---
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 He told nursing that he had disposed of all of his meds at the direction of psych so no meds at home, notified Dr. Prakash that had been directed to bring bag of meds to hospital to be sorted through but over the course of the week had not so in anticipation of discharge we reached out and he confirmed her meds were secure in a safe. Regardless, at this point meds will be resent at request of family. Reconfirmed discharge psych meds with Dr. Prakash as Ativan and Risperdal only and discharge being updated to d/c Remeron. Both are new meds and should fill. Last scripts filled 12/17 so hopefully within refill window for meds Dr. Prakash will be sending, core meds like neurontin are different doses, etc.
== END 2024-01-12 15:57 | disposition home or self-care (01) | DRG 91 ==
LOC: ED 18:21 → SUATTDRO 22:27 → EDINP 22:27 → 4W 01-04 01:19 → 3N 01-06 17:54